=== PATIENT | male | born 1945 | race Caucasian/White ===

== ENCOUNTER 2017-08-01 08:32 | Inpatient (IN) ==
[2017-08-01] MEDS ORDERED: ALBUTEROL/IPRATROPIUM 2.5mg-0.5mg/3ml NEB AEROSOL ONE ×2 (08:38→08:45)
[2017-08-01] MEDS ORDERED: METHYLPREDNISOLONE SOD SUCC 125mg/2ml INJECTION IVP ONE (08:41)
--- NOTE | 2017-08-01 08:45 | Emergency Department Report ---
Asthma HPI - General Stated Complaint: soa Time Seen by Provider: 08/01/17 08:40 Source: patient Mode of arrival: ambulatory Limitations: no limitations - History of Present Illness HPI Narrative: Patient is a 72-year-old male history of multiple myeloma history of asthma. Patient presents the ER for evaluation of dyspnea, wheezing. Patient's been having worsening symptoms of wheezing and shortness of air for the past week, has been using his nebulizer at home increasingly however is currently "not helping". Patient was here for laboratories this morning mild, however decided to present to the ER for further evaluation. On arrival patient tachypneic with audible wheezing. MD complaint: "asthma attack" - Related Data Home Medications Medication Instructions Recorded Confirmed ALPRAZolam [Xanax] 0.5 mg PO BID PRN 08/01/17 08/01/17 Amlodipine [Norvasc] 5 mg PO DAILY 08/01/17 08/01/17 Aspirin [Aspirin EC] 81 mg PO DAILY 08/01/17 08/01/17 Calcium Carbonate/Vitamin D3 1 tab PO DAILY 08/01/17 08/01/17 [Calcium 600 + Vit D Tablet] Dexamethasone Po [Decadron] 40 mg PO DAILY 08/01/17 08/01/17 Doxazosin [Cardura] 4 mg PO BID 08/01/17 08/01/17 FentaNYL PATCH [Duragesic Patch] 1 patch TD Q72H 08/01/17 08/01/17 Gabapentin [Neurontin] 300 mg PO HS 08/01/17 08/01/17 Hydrocodone/APAP 10/325 [[place] 1 tab PO Q4H PRN 08/01/17 08/01/17 10/325] Hydromorphone HCl [Dilaudid] 2 mg PO Q4H PRN 08/01/17 08/01/17 Nystatin Oral Liq. [Mycostatin] 5 ml SSW QID 08/01/17 08/01/17 Oxycodone CR [Oxycontin] 20 mg PO Q12H PRN 08/01/17 08/01/17 Oxycodone HCl 5 - 15 mg PO Q6H PRN 08/01/17 08/01/17 Allergies Allergy/AdvReac Type Severity Reaction Status Date / Time No Known Drug Allergies Allergy Unknown Verified 08/01/17 09:05 Review of Systems Constitutional: Reports: weakness. Denies: fever, chills Eyes: Denies: eye pain, eye discharge, vision change ENT: Denies: ear pain, throat pain, dental pain Cardiovascular: Reports: dyspnea on exertion. Denies: chest pain, palpitations Respiratory: Reports: dyspnea, wheezes. Denies: cough Gastrointestinal: Denies: abdominal pain, nausea, vomiting Genitourinary: Denies: urgency, dysuria, frequency Psychiatric: Denies: anxiety, depression [facility], [facility] Patient Stated Medical History Hypertension Yes Asthma Yes Other GI Yes: DIARRHEA Hx Renal Disease Yes Osteoarthritis Yes - Social History Smoking status: Never smoker Substance use type: does not use Physical Exam - General General appearance: alert - Head Head exam: normocephalic - Eye Eye exam: Present: PERRL, EOMI - ENT ENT exam: Present: normal oropharynx, TM's normal bilaterally - Neck Neck exam: Present: full ROM, trachea midline. Absent: tenderness - Chest Chest inspection: Present: symmetric chest wall rise. Absent: tenderness - Respiratory Respiratory exam: Present: respiratory distress, wheezes, accessory muscle use, prolonged expiratory phase. Absent: normal lung sounds bilaterally - Cardiovascular Cardiovascular exam: Present: regular rate, normal rhythm, normal heart sounds - Abdominal Exam Abdominal exam: Present: soft, normal bowel sounds. Absent: distention, tenderness - Back Exam Back exam: Present: full ROM. Absent: tenderness, CVA tenderness (R), CVA tenderness (L), muscle spasm - Skin Skin exam: Present: warm, dry - Neurological Exam Neurological exam: Present: alert, oriented X3 - Psychiatric Psychiatric exam: Present: normal affect, normal mood Course Vital Signs Temperature 98.5 F 08/01/17 08:35 Pulse Rate 75 08/01/17 08:35 Respiratory Rate 28 H 08/01/17 08:35 Blood Pressure 140/80 H 08/01/17 08:35 Pulse Oximetry 95 08/01/17 08:35 Temperature 98.5 F 08/01/17 08:35 Pulse Rate 86 08/01/17 10:15 Respiratory Rate 16 08/01/17 10:15 Blood Pressure 131/60 08/01/17 10:00 Pulse Oximetry 90 08/01/17 10:15 Dyspnea - MDM Narrative Medical decision making narrative: Patient with improvement but not resolution of symptoms after 125 of Solu- Medrol DuoNeb 2 and Xopenex. Patient continuing to have audible wheezing. Discussed case with Dr. Jurado he will admit observation status. - Differential Diagnosis Differential diagnosis: Likely: Acute exacerbation, Status asthmaticus, Acute asthmatic bronchitis, PE, Pneumonia, COPD exacerbation, Pulmonary edema systolic , Pulmonary edema dystolic, ARDS, Pneumothorax, Foreign body in trachea - Medical Records Attestation: I reviewed the patient's medical records. - Lab Data Attestation: I reviewed the patient's lab results. Result diagrams: 08/01/17 09:03 08/01/17 09:03 Lab Results 08/01/17 08/01/17 Range/Units 09:03 09:03 WBC 8.3 (4.5-11.0) T/MM3 RBC 3.17 L (4.50-5.90) M/MM3 Hgb 9.9 L (13.5-17.5) GM/DL Hct 30.4 L (41-53) % MCV 95.9 (80-100) UM3 MCH 31.2 (26-34) UUG MCHC 32.6 (31-37) GM/DL RDW Std Deviation 46.1 (36.9-50.2) FL Plt Count 156 (130-400) T/MM3 MPV 10.8 (9.4-12.4) UM3 Immature Gran % (Auto) 0.2 (0.0-0.5) % Neut % (Auto) 70.4 H (33-66) % Lymph % (Auto) 16.4 L (23-45) % Ada % (Auto) 11.3 H (0-9.0) % Eos % (Auto) 1.6 (0-4) % Baso % (Auto) 0.1 (0-2) % Neut # (Auto) 5.8 (1.8-7.7) T/MM3 Lymph # (Auto) 1.4 (1-4.8) T/MM3 Ada # (Auto) 0.9 H (0-0.8) T/MM3 Eos # (Auto) 0.1 (0-0.5) T/MM3 Baso # (Auto) 0.0 (0-0.2) T/MM3 Abs Immat Gran (auto) 0.02 (0.00-0.03) T/MM3 Turbidity < 20 (0-20) Sodium 144 (134-144) MEQ/L Potassium 5.4 H (3.6-5) MEQ/L Chloride 109 H (98-107) MEQ/L Carbon Dioxide 21 L (22-30) MEQ/L Anion Gap 14 (5-15) MEQ/L BUN 27.0 H (9-20) MG/DL Creatinine 2.8 H (0.8-1.5) MG/DL GFR Calculation 22 BUN/Creatinine Ratio 10 (6-26) RATIO Glucose 104 (75-110) MG/DL Calculated Osmolality 282 H (261-280) MOSM/KG Calcium 9.1 (8.4-10.2) MG/DL Magnesium 2.0 (1.6-2.3) MG/DL Total Bilirubin 0.30 (0.20-1.30) MG/DL Icterus Index < 2 (0-7) AST 39 (17-59) U/L ALT 44 (21-72) U/L Alkaline Phosphatase 146 H (38-126) U/L Troponin I < 0.012 (0-0.12) ng/ml B-Natriuretic Peptide 187 H (0-175) pg/mL Total Protein 7.2 (6.3-8.2) G/DL Albumin 4.4 (3.5-5.0) G/DL Globulin 2.8 (2.4-3.6) G/DL Albumin/Globulin Ratio 1.6 (1.1-2.2) RATIO Specimen Hemolysis < 15 (0-25) - Radiology Data Attestation: I reviewed the patient's radiology results. No acute cardiopulmonary findings - EKG Data EKG #1 EKG attestation: Yes: I reviewed and interpreted this EKG. EKG shows normal: sinus rhythm Rate [ED.COU.EKR]: normal Rhythm: NSR [place]/QRS: normal Interpretation: no acute changes Disposition Clinical Impression: Asthma with exacerbation Qualifiers: Asthma severity: moderate Asthma persistence: persistent Qualified Code(s): J45.41 - Moderate persistent asthma with (acute) exacerbation Disposition: 02 To [facility] Condition: Stable Time of Disposition: 10:53 - Seen By: physician
[2017-08-01] MEDS: SALINE FLUSH 10ml SYRINGE IVF PRN ×2 (08:47→11:53)
--- NOTE | 2017-08-01 09:24 | XRay Report ---
Indication: cough shortness of air audible wheezing PROCEDURE: XR chest 1V: Encounter: Initial Comparison: December 04, 2013 Findings: Lungs are stable and grossly clear. Right IJ port catheter. No pleural effusion or pneumothorax. The heart size, pulmonary vascularity and mediastinal contours are within normal limits. Impression: Stable chest without acute cardiopulmonary disease. .
[2017-08-01] MEDS ORDERED: HYDROCODONE/APAP 10 MG/325 MG TABLET PO PRN (10:47)
[2017-08-01] MEDS ORDERED: HYDROMORPHONE 2 MG TABLET PO PRN (10:47)
[2017-08-01] MEDS ORDERED: PROMETHAZINE/CODEINE ORAL LIQUID 5ml PO PRN (10:47)
[2017-08-01] MEDS ORDERED: Oxycodone CR 20 MG TABLET PO PRN (10:47)
[2017-08-01] MEDS ORDERED: MENTHOL COUGH DROPS (RICOLA) MM PRN (10:47)
[2017-08-01] MEDS ORDERED: Oxycodone *IR* 5 MG TABLET PO PRN (10:47)
[2017-08-01] MEDS ORDERED: FALL RISK - PHARMACY CONSULT XX ONE (11:10)
--- NOTE | 2017-08-01 11:40 | History & Physical Report ---
History of Present Illness Date: 08/01/17 Chief complaint: difficulty breathing HPI: Nacho Quarles is a 72 year old male with a hx of asthma and multiple myeloma. Per his sister, Mamie, he's been sick with URI symptoms for almost 2 weeks. He was too sick to get his chemo last week, and he's felt too awful to go see a doctor. He's felt chilled but denies fever. His wheezing started about a week ago, and some days he's using his pro-air inhaler much more than he's supposed too. He complains of occasional mild dizziness (though his sister reports that it's much worse -- he has to steady himself on a stable object for a few minutes after standing). He's felt weak as well (again, his sister later informed me that he's barely been able to get out of bed). He denies any falls or syncope. He's been able to keep up with fluids but hasn't had much of an appetite. No urinary changes. No headache or body aches. He saw Dr. Mcghee on , and he recommended ED evaluation. There he was tachypneic but afebrile and maintaining sats on room air. Labs showed a WBC of 8.3, hgb 9.9. K was elevated at 5.4, BUN 27, and creatinine 2.8. 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 CXR was negative for pneumonia or effusions. He was given DuoNeb x2 as well as a Xopenex treatment for his persistent wheezing. Solu-Medrol 125 mg IV was also given. He continued to have symptoms, and the hospitalist department was contacted for admission. Review of Systems All systems PM: 10-point ROS was reviewed, no additional remarkable complaints except - Constitutional Constitutional: Present: anorexia, chills, fatigue, weakness. Absent: fever(s) , headache(s) - EENMT Eyes: Absent: change in vision Nose: Present: obstruction Mouth/Throat: Absent: sore throat, painful swallowing - Cardiovascular Cardiovascular: Absent: chest pain, syncope Vascular: Present: pedal edema (2-3 weeks ago; resolved) - Respiratory Respiratory: Present: cough, wheezing. Absent: dyspnea - Gastrointestinal Gastrointestinal: Absent: abdominal pain, constipation, diarrhea, dyspepsia, nausea, vomiting - Genitourinary Genitourinary: Absent: dysuria - Musculoskeletal Musculoskeletal: Absent: muscle cramps, muscle weakness - Integumentary/Breasts Integumentary: Absent: rash - Neurological Neurological: Present: dizziness, numbness (toes - chronic), weakness. Absent: frequent falls, headache(s) - Psychiatric Psychiatric: Present: anxiety (well-controlled). Absent: depression - Endocrine Endocrine: Absent: palpitations - Hematologic/Lymphatic Hematologic/Lymphatic: Absent: easy bruising - Allergic/Immunologic Allergic/Immunologic: Absent: seasonal rhinorrhea Past Medical History Multiple Myeloma, diagnosed Oct, 2013, on chemotherapy, s/p bone marrow transplant HTN CKD stage IV Asthma Anemia of chronic disease OA Chronic pain, narcotic dependent Surgical History: 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 Cholecystectomy, Dr. Argueta. PowerPort insertion. Right shoulder arthroscopy. Left lower leg ORIF. Right cataract removed Family History Updates: father of lung cancer (smoker); one sister with colon cancer; another sister with cervical cancer, mother age 82, of cancer (unknown) - Social History Smoking status: Never smoker Substance use type: does not use Alcohol intake frequency: does not drink Household members: none (lives alone but sister (Светлана) lives next door) Medications Home Medications Medication Instructions Recorded Confirmed Type ALPRAZolam [Xanax] 0.5 mg PO BID PRN 08/01/17 08/01/17 History Amlodipine [Norvasc] 5 mg PO DAILY 08/01/17 08/01/17 History Aspirin [Aspirin EC] 81 mg PO DAILY 08/01/17 08/01/17 History Calcium Carbonate/Vitamin D3 1 tab PO DAILY 08/01/17 08/01/17 History [Calcium 600 + Vit D Tablet] Dexamethasone Po [Decadron] 40 mg PO DAILY 08/01/17 08/01/17 History Doxazosin [Cardura] 4 mg PO BID 08/01/17 08/01/17 History FentaNYL PATCH [Duragesic Patch] 1 patch TD Q72H 08/01/17 08/01/17 History Gabapentin [Neurontin] 300 mg PO HS 08/01/17 08/01/17 History Hydrocodone/APAP 10/325 [[place] 1 tab PO Q4H PRN 08/01/17 08/01/17 History 10/325] Hydromorphone HCl [Dilaudid] 2 mg PO Q4H PRN 08/01/17 08/01/17 History Nystatin Oral Liq. [Mycostatin] 5 ml SSW QID 08/01/17 08/01/17 History Oxycodone CR [Oxycontin] 20 mg PO Q12H PRN 08/01/17 08/01/17 History Oxycodone HCl 5 - 15 mg PO Q6H PRN 08/01/17 08/01/17 History Allergies Allergy/AdvReac Type Severity Reaction Status Date / Time No Known Drug Allergies Allergy Unknown Verified 08/01/17 09:05 Exam Vital Signs: Temperature 98.1 F 08/01/17 10:47 Pulse Rate 90 08/01/17 10:47 Respiratory Rate 24 08/01/17 10:47 Blood Pressure 150/63 H 08/01/17 10:47 Pulse Oximetry 98 08/01/17 10:47 Height/Weight/BMI: Height 1.68 m Weight 57.2 kg Body Mass Index 20.3 - Constitutional Present: mild distress, well nourished, well developed, thin - Routine HEENT Exam Head: Present: normocephalic Eye: Present: PERRL. Absent: conjunctival icterus, scleral injection ENT: Present: mucous membranes dry, oropharynx clear Comments: left ptosis - Routine Neck Exam Present: supple. Absent: lymphadenopathy - Routine Respiratory Exam Present: wheezes - Routine Cardiovascular Exam Present: RRR, S1, S2 - Routine Abdominal Exam Present: soft, normoactive bowel sounds, non distended, non tender - Routine Extremities Exam Present: no edema, pulses intact, normal capillary refill - Routine Skin Exam Present: intact, dry, warm - Routine Neurological Exam Present: alert, oriented X3, CN II-XII intact (left eye ptosis otherwise no focal deficits), normal speech - Routine Psychiatric Exam Present: normal affect, normal thought process, cooperative Results - Labs CBC & Chem 7: 08/01/17 09:03 08/01/17 09:03 Assessment and Plan (1) Asthma with exacerbation Current visit: Yes Status: Acute Assessment and Plan: IMPRESSION Asthma exacerbation Hyperkalemia (POA) Acute debility, weakness Multiple Myeloma, diagnosed Oct, 2013, on chemotherapy, s/p bone marrow transplant HTN CKD stage IV Asthma Anemia of chronic disease OA Chronic pain, narcotic dependent PLAN Admit, observation status, under the hospitalist service. Asthma exacerbation: DuoNeb QID + Xopenex PRN; Solu-Medrol 125 mg Q6h IV -- dc ADELINA d/t immunocompromised state. Check viral respiratory panel. Ativan PRN anxiety/air hunger. Hyperkalemia: IVF. Debility/weakness: Consult PT/OT. Check orthostatics. CKD stage IV: unsure of baseline creatinine. IVF for hydration, recheck in am. Chronic pain: continue home pain meds. Multiple Myeloma: consult Dr. Mcghee. Advanced directives: Sister Светлана is DPOA; would want an attempt at resuscitation. Not interested in discussing end-of-life per sister, who has noted a significant functional decline over the last year. Gabe Assessment as above with: Influenza type A Plan: will initiate Tamiflu 75mg BID for treatment DVT Prophylaxis: SCD's Resuscitation Status: Full Code - Physician Narrative Physician: Juan José Bernal MD Narrative: Date: 08/01/17 Time: 1137 Have independently interviewed and examined pt. Chart reviewed. Case discussed with ED provider and my FOOD PREPARATION WORKER. Care plan developed with my supervision; agree with above. Presents to ED secondary to increasing weakness, SOA, and decreased appetite. Feeling ill for the last 2 weeks. Progressive more SOA, congested and wheezy. Oral drive decreased - not wanting to ear and only taking small amounts of food , is drinking well and keeping liquids in well. Mild nausea without emesis. Notes stools loose at time. F/C off an on. Decreased urine output. Progressively more tired and weak. Evaluated in ED-RR rapid and patient very congested, but maintaining O2 sats. Lab with slight increase to creatinine to 2.8 and elevated potassium. WBC normal. No infiltrate on CXR. Still very weak and congested despite breathing treatments/steroids given in ED. Placed in OBS for treatment of his asthma exacerbation. Lung: decreased, course and wheezy. Less distress currently than in ED. CV: regular MSE: awake alert appropriate Gen: appears tired and weak. Plan: OBS admission for treatment of his acute asthma exacerbation. Solu-Medrol , Neb treatment, cough suppressants. Respiratory panel positive for Flu-will start Tamiflu 75mg BID for treatment. IVF for hydration and to help decrease potassium. PT/OT for strength. Monitor lab. Will recheck CXR tomorrow to see if pneumonia 'blossoms' after IV hydration. Reassess tomorrow. Hospital Course Summary Disclaimer: The visit summary below is not to be considered part of the above Progress Note. Hospital Course: 08/01/17 Admit, observation status, under the hospitalist service. Asthma exacerbation: DuoNeb QID + Xopenex PRN; Solu-Medrol 125 mg Q6h IV -- dc ADELINA d/t immunocompromised state. Check viral respiratory panel. Ativan PRN anxiety/air hunger. Hyperkalemia: IVF. Debility/weakness: Consult PT/OT. Check orthostatics. CKD stage IV: unsure of baseline creatinine. IVF for hydration, recheck in am. Chronic pain: continue home pain meds. Multiple Myeloma: consult Dr. Mcghee. Advanced directives: Sister Светлана is DPOA; would want an attempt at resuscitation. Not interested in discussing end-of-life per sister, who has noted a significant functional decline over the last year.
[2017-08-01] MEDS: 1/2 NS 1,000 ML IV SCH (11:54)
[2017-08-01] MEDS: ALBUTEROL/IPRATROPIUM 2.5mg-0.5mg/3ml NEB AEROSOL SCH ×3 (13:50→21:28)
[2017-08-01] MEDS: MORPHINE SULFATE 2mg INJ IVP PRN (13:59)
[2017-08-01] MEDS: NYSTATIN 500,000 units/5 ml ORAL LIQUID PO SCH ×3 (14:08→20:12)
[2017-08-01] MEDS: METHYLPREDNISOLONE SOD SUCC 125mg/2ml INJECTION IVP SCH ×2 (14:36→20:13)
[2017-08-01] MEDS: HYDROCODONE/APAP 10 MG/325 MG TABLET PO PRN ×2 (14:36→20:13)
[2017-08-01] MEDS: GABAPENTIN 300 MG CAPSULE PO SCH (20:12)
[2017-08-01] MEDS: DOXAZOSIN 4 MG TABLET PO SCH (20:13)
[2017-08-02] MEDS: 1/2 NS 1,000 ML IV SCH ×2 (01:10→18:29)
[2017-08-02] MEDS: HYDROCODONE/APAP 10 MG/325 MG TABLET PO PRN ×5 (01:21→22:07)
[2017-08-02] MEDS: METHYLPREDNISOLONE SOD SUCC 125mg/2ml INJECTION IVP SCH ×4 (03:30→22:06)
[2017-08-02] MEDS: ALBUTEROL/IPRATROPIUM 2.5mg-0.5mg/3ml NEB AEROSOL SCH ×4 (07:45→20:14)
--- NOTE | 2017-08-02 08:32 | XRay Report ---
INDICATION: F/U - ? infiltrate PROCEDURE: CHEST 2-VIEWS UPRIGHT (PA & LAT) Encounter: Initial COMPARISON: August 01, 2017 Findings: The lungs are stable in appearance without new focal airspace consolidation. There is no pleural effusion or pneumothorax. The heart size, pulmonary vascularity and mediastinal contours are unchanged. Right IJ port. IMPRESSION: Stable appearance of the chest without acute cardiopulmonary disease. .
[2017-08-02] MEDS: AMLODIPINE 5 MG TABLET PO SCH (09:06)
[2017-08-02] MEDS: DOXAZOSIN 4 MG TABLET PO SCH ×2 (09:06→20:46)
[2017-08-02] MEDS: ASPIRIN *EC* 81 MG TABLET PO SCH (09:06)
[2017-08-02] MEDS: NYSTATIN 500,000 units/5 ml ORAL LIQUID PO SCH ×4 (09:06→20:45)
[2017-08-02] MEDS ORDERED: FUROSEMIDE 20 MG/2 ML INJECTION IVP ONE (11:05)
[2017-08-02] MEDS ORDERED: IVIG PRIVIGEN IV ONE (13:00)
[2017-08-02] MEDS ORDERED: RTU SALINE IV ONE (13:00)
--- NOTE | 2017-08-02 13:19 | Pharmacy Consult- Renal Dosing ---
Jarek Wang-Renal Dosing - Laboratory Information 08/02/17 04:25 BUN 35.0 H Creatinine 2.8 H - Consult Information RENAL DOSING: Today's S Cr = 2.8 mg/dl. Calculated Cr Cl = 20 ml/min. I am changing the dose and frequency of the Tamiflu from 75 mg po bid to Tamiflu 30 mg daily for the remaining 3 days of therapy due to the extreme renal failure of the patient per the Pharmacy Renal Monitoring and Adjustment Program. Thanks, Hung Helm, Pharmacist.
--- NOTE | 2017-08-02 15:02 | Progress Note ---
- Date 08/02/17 Subjective: Nacho states that he feels much better and feels well enough to go home, but he is still visibly tachypneic and has increased work of breathing. He quickly becomes winded from the few steps walking to and from the bathroom. He states that he worked really hard with PT today. He has chest pain and right sided back pain -- all chronic. He states that his appetite is at baseline, which is poor. He denies vomiting, diarrhea. He denies dizziness. Objective Vital signs: Temperature 97.9 F 08/02/17 00:00 Pulse Rate 99 08/02/17 08:16 Respiratory Rate 24 08/02/17 11:35 Blood Pressure 135/63 08/02/17 08:16 Pulse Oximetry 97 08/02/17 11:35 Height/Weight/BMI: Height 1.68 m Weight 58.3 kg Body Mass Index 20.3 - Constitutional Present: mild distress, well nourished, well developed, thin - Routine HEENT Exam Head: Present: normocephalic Eye: Present: conjunctival icterus, scleral injection. Absent: PERRL ENT: Present: mucous membranes dry - Routine Respiratory Exam Present: accessory muscle use, dyspnea, wheezes, diminished air movement Comments: conversational dyspnea - Routine Cardiovascular Exam Present: RRR, S1, S2 - Routine Abdominal Exam Present: soft, normoactive bowel sounds, non distended, non tender - Routine Extremities Exam Present: no edema, pulses intact, normal capillary refill - Routine Skin Exam Present: intact, dry, warm Comments: face is flushed - Routine Neurological Exam Present: alert, oriented X3 - Routine Psychiatric Exam Present: normal affect, normal thought process, cooperative Results - Labs CBC & Chem 7: 08/02/17 04:25 08/02/17 04:25 Microbiology Results: Microbiology 08/01/17 14:11 Sputum, Expectorated Gram Stain - Final 08/01/17 14:11 Sputum, Expectorated Sputum Culture - Preliminary Pseudomonas aeruginosa Assessment and Plan (1) Asthma with exacerbation Current visit: Yes Status: Acute Assessment and Plan: IMPRESSION Asthma exacerbation Influenza type A (POA) Hyperkalemia (POA) Acute debility, weakness Thrombocytopenia Immunocompromised secondary to Multiple Myeloma, diagnosed Oct, 2013, on chemotherapy, s/p bone marrow transplant HTN CKD stage IV Asthma Anemia of chronic disease OA Chronic pain, narcotic dependent PLAN Continue Tamiflu for influenza. Continue IV steroids and breathing treatments - still with wheezing, poor air exchange, and conversational dyspnea. Repeat CXR negative for pneumonia. Sputum positive for pseudomonas - d/w Dr. Meyer - w/o fever or infiltrate on CXR it's most likely colonization. Hyperkalemia increased to 5.9 - IV Lasix given. Repeat BMP in am. Dr. Mcghee recommends IVIG. Hgb decreased from 9.9 to 8.5; platelets also down to 121. Recheck in am. PT eval: they recommend IP PT and home with home health. DVT Prophylaxis: SCD's Resuscitation Status: Full Code - Time spent with patient Time with patient PN: 25 minutes - Physician Narrative Physician: Juan José Bernal MD Narrative: Date: 08/02/17 Time: 1458 Have independently interviewed and examined pt. Chart reviewed. Case discussed with CM and my ASSISTANT MANAGER TRAINEE. Care plan developed with my supervision; agree with above. Fair. Still feels SOA and congested. Coughing. Chest wall sore from cough. Oral drive variable. Tired/weak. Did okay with therapy, but hard to be active. Lungs: decreased breath sound, shallow/rapid breathing. Resp distress at resp. CV: regular MSE: awake alert GEN: looks tired and weak. Plan: Continue with supportive respiratory care. Encourage activities to help strength. Continue pain control. Discussed case with Dr Mcghee - recommends IVIG to help him fight off infection. Hospital Course Summary Disclaimer: The visit summary below is not to be considered part of the above Progress Note. Hospital Course: 08/01/17 Admit, observation status, under the hospitalist service. Asthma exacerbation: DuoNeb QID + Xopenex PRN; Solu-Medrol 125 mg Q6h IV -- dc ADELINA d/t immunocompromised state. Check viral respiratory panel. Ativan PRN anxiety/air hunger. Hyperkalemia: IVF. Debility/weakness: Consult PT/OT. Check orthostatics. CKD stage IV: unsure of baseline creatinine. IVF for hydration, recheck in am. Chronic pain: continue home pain meds. Multiple Myeloma: consult Dr. Mcghee. Advanced directives: Sister Светлана is DPOA; would want an attempt at resuscitation. Not interested in discussing end-of-life per sister, who has noted a significant functional decline over the last year. Influenza type A - Tamiflu 75mg BID for treatment 08/02/17 Continue Tamiflu for influenza. Continue IV steroids and breathing treatments - still with wheezing, poor air exchange, and conversational dyspnea. Repeat CXR negative for pneumonia. Sputum positive for pseudomonas - d/w Dr. Meyer - w/o fever or infiltrate on CXR it's most likely colonization. Hyperkalemia increased to 5.9 - IV Lasix given. Repeat BMP in am. Dr. Mcghee recommends IVIG. Hgb decreased from 9.9 to 8.5; platelets also down to 121. Recheck in am. PT eval: they recommend IP PT and home with home health.
[2017-08-02] MEDS: MORPHINE SULFATE 2mg INJ IVP PRN (16:33)
[2017-08-02] MEDS: SALINE FLUSH 10ml SYRINGE IVF PRN ×2 (20:44→22:07)
[2017-08-02] MEDS: GABAPENTIN 300 MG CAPSULE PO SCH (20:45)
[2017-08-02] MEDS: ALPRAZolam 0.5 MG TABLET PO PRN (20:46)
[2017-08-03] MEDS: METHYLPREDNISOLONE SOD SUCC 125mg/2ml INJECTION IVP SCH ×4 (03:29→20:39)
[2017-08-03] MEDS: HYDROCODONE/APAP 10 MG/325 MG TABLET PO PRN ×2 (05:49→17:22)
[2017-08-03] MEDS: ALBUTEROL/IPRATROPIUM 2.5mg-0.5mg/3ml NEB AEROSOL SCH ×4 (07:10→20:15)
[2017-08-03] MEDS: 1/2 NS 1,000 ML IV SCH (08:18)
[2017-08-03] MEDS: NYSTATIN 500,000 units/5 ml ORAL LIQUID PO SCH ×4 (08:20→20:39)
[2017-08-03] MEDS: ASPIRIN *EC* 81 MG TABLET PO SCH (08:21)
[2017-08-03] MEDS: AMLODIPINE 5 MG TABLET PO SCH (08:21)
[2017-08-03] MEDS: DOXAZOSIN 4 MG TABLET PO SCH ×2 (08:21→20:39)
[2017-08-03] MEDS ORDERED: FUROSEMIDE 100 MG/10 ML INJECTION IVP ONE ×2 (11:23→16:30)
[2017-08-03] MEDS ORDERED: SODIUM BICARBONATE 150 MEQ in D5W 1,000 ML IV SCH (11:30)
--- NOTE | 2017-08-03 11:47 | Progress Note ---
- Date 08/03/17 Subjective: The patient was seen this morning in his room. He continues to be tachypneic and uses some assess her muscles to breathe. He continues to feel short of breath and has a cough. He states he's had some chest discomfort that improved yesterday with morphine but has been present since that time. It is not particularly pleuritic. His chest wall was tender to touch yesterday but not today. He states he is urinating frequently. He is eating and drinking okay. His abdomen appears distended but he states it is his normal size. He states he sees Dr. Carl for nephrology. He has not seen him in about a year. The patient has had loose stools which have been normal in color. He denies having any black stools or bloody appearing stools. Objective Vital signs: Temperature 98.5 F 08/03/17 04:51 Pulse Rate 101 H 08/03/17 08:05 Respiratory Rate 22 08/03/17 10:46 Blood Pressure 133/66 08/03/17 08:05 Pulse Oximetry 95 08/03/17 10:46 Height/Weight/BMI: Height 1.68 m Weight 59.8 kg Body Mass Index 20.3 Comments: Afebrile, heart rate 101, respirations 22, O2 sat 95% on room air, blood pressure 133/66 Weight was 57.2 on admission and is 59.8 today. Relative I&O is 5.7 L / 2.6 L GEN-alert, oriented, appears tachypneic HEENT-oropharynx is mildly dry, sclera are anicteric NECK-supple CV-borderline tachycardic rate with irregular rhythm CHEST-wheezing throughout lung ansari ABD-soft, moderate distention, positive tympany, positive bowel sounds, nontender -no [place] EXT-no edema NEURO-no focal deficits SKIN-warm and dry Results - Labs CBC & Chem 7: 08/03/17 04:37 08/03/17 04:37 Labs: Lactate now is 3.6, troponin is pending. EKG done today reveals sinus rhythm. Microbiology Results: Microbiology 08/01/17 14:11 Sputum, Expectorated Gram Stain - Final 08/01/17 14:11 Sputum, Expectorated Sputum Culture - Preliminary Pseudomonas aeruginosa Normal Respiratory Elizabeth Assessment and Plan (1) Asthma with exacerbation Current visit: Yes Status: Acute Assessment and Plan: IMPRESSION Asthma exacerbation Influenza type A (POA) Acute kidney injury on chronic kidney disease Hyperkalemia (POA) Chest pain-with normal initial troponin and EKG Acute debility, weakness Thrombocytopenia Immunocompromised secondary to Multiple Myeloma, diagnosed Oct, 2013, on chemotherapy, s/p bone marrow transplant HTN CKD stage IV Asthma Anemia of chronic disease -hemoglobin has dropped from 9.9 on admission to 8.0 on 08/03/2017 OA Chronic pain, narcotic dependent Elevated lactate of 3.6-possible severe sepsis. PLAN Continue Tamiflu for influenza. Dose decreased due to renal function. Continue IV steroids and breathing treatments - still with wheezing, poor air exchange, and conversational dyspnea. Sputum positive for pseudomonas Consulted Dr. Kerr today regarding asthma exacerbation and positive sputum with Pseudomonas. May need antibiotics. Consider CT chest without contrast if patient able to lie flat. Check EKG and troponin regarding chest pain. (EKG showed normal sinus rhythm) Discussed the patient's chronic kidney disease with worsening creatinine and elevated calcium with Dr. Carl and he recommended D5W with 3 A of bicarbonate to run at 125 an hour and Lasix 1. We'll recheck basic metabolic profile later today. If potassium is not improving he will need transfer to [place] for possible dialysis. He suspects his increased creatinine may be due to ATN caused by his recent influenza illness. We'll check Hemoccults and monitor hemoglobin regarding drop in hemoglobin and increase in BUN. Will start Protonix IV. Change to inpatient status secondary to acute kidney injury with hyperkalemia Greater than 45 minutes of critical care time spent seeing and evaluating the patient in determining care plan.. Lactate was obtained and was 3.6. Will give a bolus IV fluid if chest x-ray shows no pulmonary edema. No pulmonary edema on my read. Give 1 L normal saline bolus over 2 hours. Will start cefepime, Vanco, Levaquin. Obtain blood cultures 2. 400 of urine was noted on post void bladder scan. Renal ultrasound is pending. DVT Prophylaxis: SCD's GI Prophylaxis: Protonix Resuscitation Status: Full Code - Time spent with patient Time with patient PN: 50 minutes - Physician Narrative Physician: Jammie Castillo MD Narrative: Date: 08/03/17 Time: 1133 Hospital Course Summary Disclaimer: The visit summary below is not to be considered part of the above Progress Note. Hospital Course: 08/01/17 Admit, observation status, under the hospitalist service. Asthma exacerbation: DuoNeb QID + Xopenex PRN; Solu-Medrol 125 mg Q6h IV -- dc ADELINA d/t immunocompromised state. Check viral respiratory panel. Ativan PRN anxiety/air hunger. Hyperkalemia: IVF. Debility/weakness: Consult PT/OT. Check orthostatics. CKD stage IV: unsure of baseline creatinine. IVF for hydration, recheck in am. Chronic pain: continue home pain meds. Multiple Myeloma: consult Dr. Mcghee. Advanced directives: Sister Светлана is DPOA; would want an attempt at resuscitation. Not interested in discussing end-of-life per sister, who has noted a significant functional decline over the last year. Influenza type A - Tamiflu 75mg BID for treatment 08/02/17 Continue Tamiflu for influenza. Continue IV steroids and breathing treatments - still with wheezing, poor air exchange, and conversational dyspnea. Repeat CXR negative for pneumonia. Sputum positive for pseudomonas - d/w Dr. Meyer - w/o fever or infiltrate on CXR it's most likely colonization. Hyperkalemia increased to 5.9 - IV Lasix given. Repeat BMP in am. Dr. Mcghee recommends IVIG. Hgb decreased from 9.9 to 8.5; platelets also down to 121. Recheck in am. PT eval: they recommend IP PT and home with home health. 08/03/2017 PLAN Continue Tamiflu for influenza. Dose decreased due to renal function. Continue IV steroids and breathing treatments - still with wheezing, poor air exchange, and conversational dyspnea. Sputum positive for pseudomonas Consulted Dr. Kerr today regarding asthma exacerbation and positive sputum with Pseudomonas. May need antibiotics. Consider CT chest without contrast if patient able to lie flat. Check EKG and troponin regarding chest pain. (EKG showed normal sinus rhythm) Discussed the patient's chronic kidney disease with worsening creatinine and elevated calcium with Dr. Carl and he recommended D5W with 3 A of bicarbonate to run at 125 an hour and Lasix 1. We'll recheck basic metabolic profile later today. If potassium is not improving he will need transfer to [place] for possible dialysis. He suspects his increased creatinine may be due to ATN caused by his recent influenza illness. We'll check Hemoccults and monitor hemoglobin regarding drop in hemoglobin and increase in BUN. Will start Protonix IV. Change to inpatient status secondary to acute kidney injury with hyperkalemia Greater than 45 minutes of critical care time spent seeing and evaluating the patient in determining care plan.. Lactate was obtained and was 3.6. Will give a bolus IV fluid if chest x-ray shows no pulmonary edema. No pulmonary edema on my read. Give 1 L normal saline bolus over 2 hours. Will start cefepime, Vanco, Levaquin. Obtain blood cultures 2. 400 of urine was noted on post void bladder scan. Renal ultrasound is pending.
[2017-08-03] MEDS ORDERED: VANCOMYCIN - PHARMACY CONSULT MC ONE (12:26)
[2017-08-03] MEDS ORDERED: RENAL DOSING - PHARMACY CONSULT MC ONE (12:27)
[2017-08-03] MEDS ORDERED: LEVOFLOXACIN PB 750 MG/150 ML BAG IV SCH (12:30)
[2017-08-03] MEDS ORDERED: CEFEPIME 2 GM in NS 100 ML IV SCH (12:30)
[2017-08-03] MEDS ORDERED: NS 1,000 ML IV ONE (12:33)
[2017-08-03] MEDS ORDERED: LEVOFLOXACIN PB 500 MG/100 ML BAG IV ONE (13:00)
[2017-08-03] MEDS: PANTOPRAZOLE 40 MG INJECTION IVP SCH ×2 (13:14→20:40)
--- NOTE | 2017-08-03 13:26 | Pharmacy Consult- Renal Dosing ---
[facility] Consul-Renal Dosing - Consult Information RENAL DOSING: Today's S Cr = 0.9 mg/dl. Calculated Cr Cl = 19.66 ml/min. 1) Will change the Cefepime 2 g iv every 24 hours to Cefepime 1 g iv every 12 hours. 2) will change the Leovfloxacin 750 mg iv every7 q72h to Levofloxacin 500 mg iv today, then 250 mg iv daily thereafter. The pharmacy will continue to review the renal function and adjust the medications accordingly. Thanks for the Renal Consult, Hnug Helm, Pharmacist.
--- NOTE | 2017-08-03 13:32 | XRay Report ---
Indication: rule out pneumonia and pulm edema PROCEDURE: XR chest 1V: Encounter: Initial Comparison: August 02, 2017 Findings: Right IJ port catheter. Lungs are stable and grossly clear. No pleural effusion or pneumothorax. Heart size and mediastinal contours are stable. Pulmonary vascularity appears normal. Impression: No focal pneumonia or congestive failure. .
[2017-08-03] MEDS: MORPHINE SULFATE 2mg INJ IVP PRN ×2 (13:37→23:27)
--- NOTE | 2017-08-03 14:07 | Ultrasound Report ---
Indication: tashi on ckd PROCEDURE: US renal BI: Encounter: Initial Comparison: None Technique: Grayscale and color Doppler sonographic imaging of both kidneys was performed. FINDINGS: Both kidneys are present with normal cortical thickness and slightly increased echogenicity, probably due to medical renal disease. No evidence for collecting system dilatation, contour deforming mass, nephrolithiasis, or abnormal perinephric fluid collection. The right kidney measures 9.6 cm in length, and the left kidney measures 8.7 cm in length. IMPRESSION: No hydronephrosis. .
--- NOTE | 2017-08-03 14:35 | Pharmacy Consult-Antibiotics ---
Pharmacy Consult-Vancomycin - Laboratory Information WBC 13.3 T/MM3 (4.5-11.0) H D 08/03/17 04:37 BUN 41.0 MG/DL (9-20) H 08/03/17 04:37 Creatinine 2.9 MG/DL (0.8-1.5) H 08/03/17 04:37 - Consult Information VANCOMYCIN CONSULT: 72 yr old male patient 5'6" 60 kg Dx: Influenza with acute and chronic kidney disease and hx of multiple myeloma Current Renal Fx: SCr = 2.9 mg/dl. CrCl = 19 ml/min Will give Vancomycin 1000 mg IV q36hrs. Will continue to monitor and adjust regimen to maintain therapeutic levels. Thank you. Luanne Rudolph,PharmD
[2017-08-03] MEDS: CEFEPIME 1 GM in NS 50 ML IV SCH (15:11)
--- NOTE | 2017-08-03 15:14 | Pulmonology Consult Note ---
History of Present Illness Consult date: 08/03/17 Requesting physician: Jammie Castillo Reason for consult: dyspnea Chief complaint: influenza History of present illness: HPI: Nacho Quarles is a 72 year old male with history of asthma. He has not been hospitalized with asthma in the past. He takes PRN ProAir at home. He never smoked cigarettes. He does not take any additional asthma medications. He does not have O2 at home. He also has history of multiple myeloma. Per his sister, Mamie, he's been sick with URI symptoms for almost 2 weeks. He was too sick to get his chemo last week, and he's felt too awful to go see a doctor. He's felt chilled but denies fever. His wheezing started about a week ago, and some days he's using his pro-air inhaler much more than he's supposed too. He complains of occasional mild dizziness (though his sister reports that it's much worse -- he has to steady himself on a stable object for a few minutes after standing). He' s felt weak as well (again, his sister later informed me that he's barely been able to get out of bed). He denies any falls or syncope. He's been able to keep up with fluids but hasn't had much of an appetite. No urinary changes. No headache or body aches. He saw Dr. Mcghee on 08/01/17, and he recommended ED evaluation. There he was tachypneic but afebrile and maintaining sats on room air. Labs showed a WBC of 8.3, hgb 9.9. K was elevated at 5.4, BUN 27, and creatinine 2.8. 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 CXR was negative for pneumonia or effusions. He was given DuoNeb x2 as well as a Xopenex treatment for his persistent wheezing. Solu-Medrol 125 mg IV was also given. He continued to have symptoms, and the hospitalist department was contacted for admission. Review of Systems All systems PM: 10-point ROS was reviewed, no additional remarkable complaints except - Constitutional Constitutional: Present: anorexia, chills, fatigue, weakness. Absent: fever(s) , headache(s) - EENMT Eyes: Absent: change in vision Nose: Present: obstruction Mouth/Throat: Absent: sore throat, painful swallowing - Cardiovascular Cardiovascular: Absent: chest pain, syncope Vascular: Present: pedal edema (2-3 weeks ago; resolved) - Respiratory Respiratory: Present: cough, wheezing. Absent: dyspnea - Gastrointestinal Gastrointestinal: Absent: abdominal pain, constipation, diarrhea, dyspepsia, nausea, vomiting - Genitourinary Genitourinary: Absent: dysuria - Musculoskeletal Musculoskeletal: Absent: muscle cramps, muscle weakness - Integumentary/Breasts Integumentary: Absent: rash - Neurological Neurological: Present: dizziness, numbness (toes - chronic), weakness. Absent: frequent falls, headache(s) - Psychiatric Psychiatric: Present: anxiety (well-controlled). Absent: depression - Endocrine Endocrine: Absent: palpitations - Hematologic/Lymphatic Hematologic/Lymphatic: Absent: easy bruising - Allergic/Immunologic Allergic/Immunologic: Absent: seasonal rhinorrhea Past Medical History Multiple Myeloma, diagnosed Oct, 2013, on chemotherapy, s/p bone marrow transplant HTN CKD stage IV Asthma Anemia of chronic disease OA Chronic pain, narcotic dependent Surgical History: 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 Cholecystectomy, Dr. Argueta. PowerPort insertion. Right shoulder arthroscopy. Left lower leg ORIF. Right cataract removed Family History Updates: father of lung cancer (smoker); one sister with colon cancer; another sister with cervical cancer, mother age 82, of cancer (unknown) - Social History Smoking status: Never smoker Substance use type: does not use Alcohol intake frequency: does not drink Household members: none (lives alone but sister (Светлана) lives next door) Review of Systems All systems: reviewed and no additional remarkable complaints except as stated Review of systems: cough. no sputum. wheeze and dyspnea. PFSH Surgical History: 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 Cholecystectomy, Dr. Argueta. PowerPort insertion. Right shoulder arthroscopy. Left lower leg ORIF. Right cataract removed - Social History Smoking status: Never smoker Medications Home Medications Medication Instructions Recorded Confirmed Type ALPRAZolam [Xanax] 0.5 mg PO BID PRN 08/01/17 08/01/17 History Amlodipine [Norvasc] 5 mg PO DAILY 08/01/17 08/01/17 History Aspirin [Aspirin EC] 81 mg PO DAILY 08/01/17 08/01/17 History Calcium Carbonate/Vitamin D3 1 tab PO DAILY 08/01/17 08/01/17 History [Calcium 600 + Vit D Tablet] Dexamethasone Po [Decadron] 40 mg PO DAILY 08/01/17 08/01/17 History Doxazosin [Cardura] 4 mg PO BID 08/01/17 08/01/17 History FentaNYL PATCH [Duragesic Patch] 1 patch TD Q72H 08/01/17 08/01/17 History Gabapentin [Neurontin] 300 mg PO HS 08/01/17 08/01/17 History Hydrocodone/APAP 10/325 [[place] 1 tab PO Q4H PRN 08/01/17 08/01/17 History 10/325] Hydromorphone HCl [Dilaudid] 2 mg PO Q4H PRN 08/01/17 08/01/17 History Nystatin Oral Liq. [Mycostatin] 5 ml SSW QID 08/01/17 08/01/17 History Oxycodone CR [Oxycontin] 20 mg PO Q12H PRN 08/01/17 08/01/17 History Oxycodone HCl 5 - 15 mg PO Q6H PRN 08/01/17 08/01/17 History Allergies Allergy/AdvReac Type Severity Reaction Status Date / Time No Known Drug Allergies Allergy Unknown Verified 08/01/17 09:05 Exam Vital signs: Temperature 95.5 F L 08/03/17 14:57 Pulse Rate 71 08/03/17 14:57 Respiratory Rate 20 08/03/17 15:02 Blood Pressure 92/60 08/03/17 14:57 Pulse Oximetry 95 08/03/17 15:02 - Constitutional mild distress, well developed, cooperative - Routine HEENT Exam Head: Present: normocephalic, atraumatic Eye: Present: EOMI, PERRL. Absent: conjunctival icterus ENT: Present: mucous membranes moist - Routine Neck Exam Present: supple, full ROM - Routine Respiratory Exam Present: decreased breath sounds, prolonged expiratory phase, wheezes. Absent: accessory muscle use - Routine Cardiovascular Exam Present: RRR. Absent: murmur - Routine Abdominal Exam Present: soft. Absent: guarding - Routine Extremities Exam Absent: cyanosis, clubbing - Routine Skin Exam Absent: jaundice, rash - Routine Neurological Exam Present: alert. Absent: motor deficit Results - Laboratory Findings CBC and BMP: 08/03/17 04:37 08/03/17 04:37 - Diagnostic Findings Chest x-ray: report reviewed, image reviewed Assessment and Plan (1) Lactic acidosis Status: Acute Assessment and plan: possibly related to sepsis syndrome with acute renal injury. recheck lactate, ABG likely a contributor to shortness of breath Current Visit: Yes (2) Acute kidney injury Status: Acute Assessment and plan: IVF rehydration and follow. avoid nephrotoxins. may benefit from renal consult Current Visit: Yes (3) Influenza A Status: Acute Assessment and plan: on oseltamivir supportive care Current Visit: Yes (4) Asthma with exacerbation Status: Acute Assessment and plan: agree with methylpred, levalbuterol. add ipratropium neb as well. Current Visit: Yes - Time Spent With Patient Total time spent is greater than 50% in coordination of care (as documented) at patient's floor/unit and/or counseling patient: 25 - 35 minutes
[2017-08-03] MEDS: VANCOMYCIN 1,000 MG in NS 250 ML IV SCH (17:22)
[2017-08-03] MEDS ORDERED: SODIUM BICARBONATE 150 MEQ in D5W 850 ML IV SCH (20:15)
[2017-08-03] MEDS: GABAPENTIN 300 MG CAPSULE PO SCH (20:38)
[2017-08-04] MEDS: METHYLPREDNISOLONE SOD SUCC 125mg/2ml INJECTION IVP SCH ×4 (02:18→22:43)
[2017-08-04] MEDS: CEFEPIME 1 GM in NS 50 ML IV SCH ×2 (02:19→18:00)
[2017-08-04] MEDS: ALBUTEROL/IPRATROPIUM 2.5mg-0.5mg/3ml NEB AEROSOL SCH ×5 (05:08→23:41)
[2017-08-04] MEDS: SODIUM BICARBONATE 150 MEQ in D5W 1,000 ML IV SCH (06:29)
[2017-08-04] MEDS ORDERED: NS FLUSH BAG 500ml IV PRN ×2 (08:05→10:48)
[2017-08-04] MEDS ORDERED: DEXTROSE 50% SYRINGE 50ml (1 AMP) IVP PRN (08:10)
[2017-08-04] MEDS ORDERED: GLUCOSE ORAL GEL 40% 37.5gm PO PRN (08:10)
--- NOTE | 2017-08-04 08:11 | CT Scan Report ---
Indication: dyspnea, possible pneumonia PROCEDURE: CT chest wo con: Encounter: Initial Comparison: Chest x-ray from same date Technique: Axial CT images were performed through the chest without intravenous contrast. Coronal and sagittal two-dimensional reformats. Automated Exposure Control and Iterative Reconstruction dose reducing techniques were utilized. Findings: There is patchy somewhat nodular airspace consolidation in the right lower lobe with tree-in-bud type nodular foci. There is also some peribronchial vascular nodular opacity and inflammatory change in the left lower lobe. Inflammatory appearing groundglass nodule in the left upper lobe on image #32 measuring 1 cm in size. Additional tree-in-bud type nodular foci in the peripheral right upper lobe with groundglass foci. No pleural effusion or pneumothorax. No axillary or mediastinal adenopathy. Heart size is normal. Trace pericardial effusion. The upper abdomen shows no acute findings. Impression: Scattered parenchymal infiltrates most consistent with pneumonia. There is a preliminary report by [facility]. .
[2017-08-04] MEDS: SALINE FLUSH 10ml SYRINGE IVF PRN ×4 (08:13→22:42)
[2017-08-04] MEDS: MORPHINE SULFATE 2mg INJ IVP PRN ×4 (08:13→19:42)
--- NOTE | 2017-08-04 08:15 | Progress Note ---
- Date 08/04/17 Subjective: The patient was seen this morning in his room. He states he is breathing better today than yesterday. He does complain of chest pain that has been continuous since admission but is worse currently. He rates it 7 on a scale of 1-10. There is no radiation of pain. His mouth feels dry. He is urinating frequently. He did not sleep well last night because of interruptions for vitals, etc. He denies any pain elsewhere. Objective Vital signs: Temperature 97.5 F 08/04/17 06:33 Pulse Rate 112 H 08/04/17 06:35 Respiratory Rate 28 H 08/04/17 06:35 Blood Pressure 150/71 H 08/04/17 06:35 Pulse Oximetry 96 08/04/17 06:35 Comments: Current heart rate on telemetry is 97. Review of telemetry shows sinus rhythm and sinus tachycardia. No arrhythmias. I&O yesterday 3992/3200 GEN-alert, oriented, breathing a little more comfortably HEENT-sclera anicteric, oropharynx is dry NECK-supple CV-borderline tachycardia with a regular rhythm CHEST-expiratory wheezes throughout ABD-soft, nontender with positive bowel sounds -no [place] EXT-no edema NEURO-no focal deficits SKIN-warm and dry, no rashes Results - Labs CBC & Chem 7: 08/04/17 04:38 08/04/17 04:38 Labs: Hemoglobin is 7.9 down from 9.9 on admission. Hemoccult stool yesterday is negative. Iron panel, B-12, folate are pending Phosphorus and calcium are normal Lactate this morning is 1.6 down from a high of 3.6 yesterday morning Microbiology Results: Microbiology 08/03/17 13:42 Sputum, Expectorated Gram Stain - Final 08/03/17 13:42 Sputum, Expectorated Sputum Culture - Final 08/03/17 13:11 Port/Picc Blood Culture - Preliminary Culture Initiated - Results Pending 08/03/17 13:16 Port/Picc Blood Culture - Preliminary Culture Initiated - Results Pending Sputum from 08/01/2017 shows Pseudomonas with moderate growth. Sensitive to cefepime, gentamicin, Levaquin, meropenem, tobramycin, Zosyn - ABG Interpretation ABG results: 08/03/17 08/03/17 15:58 15:58 ABG pH Cancelled 7.393 ABG pCO2 Cancelled 31 L ABG pO2 Cancelled 85.6 ABG HCO3 Cancelled 19.1 L ABG Total CO2 Cancelled 20.0 L ABG O2 Saturation Cancelled 96.6 ABG Base Excess Cancelled -5.3 L - Impressions Date of Exam: 08/03/17 Ordering Provider: Jammie Castillo MD Type of Exam(s): US renal BI Reason for Exam(s): tashi on ckd Indication: tashi on ckd PROCEDURE: US renal BI: Encounter: Initial Comparison: None Technique: Grayscale and color Doppler sonographic imaging of both kidneys was performed. FINDINGS: Both kidneys are present with normal cortical thickness and slightly increased echogenicity, probably due to medical renal disease. No evidence for collecting system dilatation, contour deforming mass, nephrolithiasis, or abnormal perinephric fluid collection. The right kidney measures 9.6 cm in length, and the left kidney measures 8.7 cm in length. IMPRESSION: No hydronephrosis. Date of Exam: 08/03/17 Ordering Provider: Jammie Castillo MD Type of Exam(s): CT chest wo con Reason for Exam(s): dyspnea, possible pneumonia Indication: dyspnea, possible pneumonia PROCEDURE: CT chest wo con: Encounter: Initial Comparison: Chest x-ray from same date Technique: Axial CT images were performed through the chest without intravenous contrast. Coronal and sagittal two-dimensional reformats. Automated Exposure Control and Iterative Reconstruction dose reducing techniques were utilized. Findings: There is patchy somewhat nodular airspace consolidation in the right lower lobe with tree-in-bud type nodular foci. There is also some peribronchial vascular nodular opacity and inflammatory change in the left lower lobe. Inflammatory appearing groundglass nodule in the left upper lobe on image #32 measuring 1 cm in size. Additional tree-in-bud type nodular foci in the peripheral right upper lobe with groundglass foci. No pleural effusion or pneumothorax. No axillary or mediastinal adenopathy. Heart size is normal. Trace pericardial effusion. The upper abdomen shows no acute findings. Impression: Scattered parenchymal infiltrates most consistent with pneumonia. Assessment and Plan (1) Asthma with exacerbation Current visit: Yes Status: Acute Assessment and Plan: IMPRESSION Asthma exacerbation Influenza type A (POA) Severe sepsis Pneumonia (diagnosed on CT) with Pseudomonas aeruginosa in sputum Acute kidney injury on chronic kidney disease -slightly improved. (Renal ultrasound without hydronephrosis) Hyperkalemia (POA)-resolved Chest pain-with normal initial troponin and EKG Anemia of chronic disease with slow decrease in hemoglobin, was 9.9 on admission and 7.9 on 08/04/2017 . Hemoccult stool negative Acute debility, weakness Thrombocytopenia Immunocompromised secondary to Multiple Myeloma, diagnosed Oct, 2013, on chemotherapy, s/p bone marrow transplant HTN CKD stage IV OA Chronic pain, narcotic dependent PLAN Continue Tamiflu for influenza. Dose decreased due to renal function. Continue IV steroids and breathing treatments - still with wheezing, poor air exchange, dyspnea slightly improved today. Started on vancomycin, cefepime, Levaquin yesterday for severe sepsis/ pneumonia. Blood cultures are pending Can likely adjust antibiotics for treatment of Pseudomonas pneumonia. ReCheck EKG (this morning's EKG shows normal sinus rhythm) and serial troponin now regarding chest pain. (EKG yesterday showed normal sinus rhythm with normal troponins) Chest x-ray today We'll discuss if transfusion needed with the patient's oncologist Dr. Mcghee Discussed with motorcycle fabricator, Dr. Carl and he recommends discontinuation of D5 with bicarbonate and initiating normal saline. DVT Prophylaxis: SCD's GI Prophylaxis: Protonix Resuscitation Status: Full Code - Time spent with patient Time with patient PN: 35 minutes - Physician Narrative Physician: Jammie Castillo MD Narrative: Date: 08/04/17 Time: 0811 Hospital Course Summary Disclaimer: The visit summary below is not to be considered part of the above Progress Note. Hospital Course: 08/01/17 Admit, observation status, under the hospitalist service. Asthma exacerbation: DuoNeb QID + Xopenex PRN; Solu-Medrol 125 mg Q6h IV -- dc ADELINA d/t immunocompromised state. Check viral respiratory panel. Ativan PRN anxiety/air hunger. Hyperkalemia: IVF. Debility/weakness: Consult PT/OT. Check orthostatics. CKD stage IV: unsure of baseline creatinine. IVF for hydration, recheck in am. Chronic pain: continue home pain meds. Multiple Myeloma: consult Dr. Mcghee. Advanced directives: Sister Светлана is DPOA; would want an attempt at resuscitation. Not interested in discussing end-of-life per sister, who has noted a significant functional decline over the last year. Influenza type A - Tamiflu 75mg BID for treatment 08/02/17 Continue Tamiflu for influenza. Continue IV steroids and breathing treatments - still with wheezing, poor air exchange, and conversational dyspnea. Repeat CXR negative for pneumonia. Sputum positive for pseudomonas - d/w Dr. Meyer - w/o fever or infiltrate on CXR it's most likely colonization. Hyperkalemia increased to 5.9 - IV Lasix given. Repeat BMP in am. Dr. Mcghee recommends IVIG. Hgb decreased from 9.9 to 8.5; platelets also down to 121. Recheck in am. PT eval: they recommend IP PT and home with home health. 08/03/2017 PLAN Continue Tamiflu for influenza. Dose decreased due to renal function. Continue IV steroids and breathing treatments - still with wheezing, poor air exchange, and conversational dyspnea. Sputum positive for pseudomonas Consulted Dr. Kerr today regarding asthma exacerbation and positive sputum with Pseudomonas. May need antibiotics. Consider CT chest without contrast if patient able to lie flat. Check EKG and troponin regarding chest pain. (EKG showed normal sinus rhythm) Discussed the patient's chronic kidney disease with worsening creatinine and elevated calcium with Dr. Carl and he recommended D5W with 3 A of bicarbonate to run at 125 an hour and Lasix 1. We'll recheck basic metabolic profile later today. If potassium is not improving he will need transfer to [place] for possible dialysis. He suspects his increased creatinine may be due to ATN caused by his recent influenza illness. We'll check Hemoccults and monitor hemoglobin regarding drop in hemoglobin and increase in BUN. Will start Protonix IV. Change to inpatient status secondary to acute kidney injury with hyperkalemia Greater than 45 minutes of critical care time spent seeing and evaluating the patient in determining care plan.. Lactate was obtained and was 3.6. Will give a bolus IV fluid if chest x-ray shows no pulmonary edema. No pulmonary edema on my read. Give 1 L normal saline bolus over 2 hours. Will start cefepime, Vanco, Levaquin. Obtain blood cultures 2. 400 of urine was noted on post void bladder scan. Renal ultrasound is pending.
--- NOTE | 2017-08-04 08:35 | XRay Report ---
Indication: hypoxia and dysnea PROCEDURE: XR chest 1V: Encounter: Initial Comparison: Chest CT dated August 03, 2017 Findings: Airspace consolidation is again partially obscured by overlying monitoring leads and is better visualized on the recent chest CT. There are small nodular foci of opacity seen in the right upper, middle and lower lobes. This is not grossly changed in the interval. No pleural effusion or pneumothorax. Heart size and mediastinal contours are stable. Pulmonary vascularity is normal Impression: Stable subtle nodular infiltrates. .
[2017-08-04] MEDS: PANTOPRAZOLE 40 MG INJECTION IVP SCH ×2 (10:44→22:43)
[2017-08-04] MEDS ORDERED: DiphenhydrAMINE 25 MG CAPSULE PO ONE (10:48)
[2017-08-04] MEDS ORDERED: ACETAMINOPHEN 325 MG TABLET PO ONE (10:49)
[2017-08-04] MEDS: INSULIN ASPART 100unit/ml INJECTION SQ PRN ×2 (11:04→22:44)
[2017-08-04] MEDS: ASPIRIN *EC* 81 MG TABLET PO SCH (11:07)
[2017-08-04] MEDS: DOXAZOSIN 4 MG TABLET PO SCH ×2 (11:07→22:42)
[2017-08-04] MEDS: NYSTATIN 500,000 units/5 ml ORAL LIQUID PO SCH ×4 (11:08→22:43)
[2017-08-04] MEDS: AMLODIPINE 5 MG TABLET PO SCH (11:15)
--- NOTE | 2017-08-04 11:39 | Pulmonology Progress Note ---
Subjective Principal diagnosis: SOB Interval history: Pt in bed, states his SOB is a little better today. Still with cough and sputum. On O2 at 2L per NC Exam Vital signs: Temperature 97.1 F 08/04/17 11:17 Pulse Rate 108 H 08/04/17 11:17 Respiratory Rate 28 H 08/04/17 11:17 Blood Pressure 155/73 H 08/04/17 11:17 Pulse Oximetry 95 08/04/17 11:17 Inpatient Medications: Generic Name Dose Route Start Last Admin Trade Name Freq PRN Reason Stop Dose Admin Hydrocodone Bitart/Acetaminophen 1 - 2 tab 08/01/17 14:30 08/03/17 17:22 [place] 10/325 PO 1 tab Q4H PRN Administration Pain Albuterol/Ipratropium 3 ml 08/01/17 11:00 08/04/17 05:08 Duoneb AEROSOL 3 ml RTQID RADHA Administration Alprazolam 0.5 mg 08/01/17 10:47 08/02/17 20:46 Xanax PO 0.5 mg BID PRN Administration Anxiety Amlodipine Besylate 5 mg 08/02/17 09:00 08/04/17 11:15 Norvasc PO 5 mg DAILY RADHA Administration Aspirin 81 mg 08/02/17 09:00 08/04/17 11:07 Ecotrin PO 81 mg DAILY RADHA Administration Dextrose 20 ml 08/04/17 08:10 D50%W IVP PRN PRN Hypoglycemia Doxazosin Mesylate 4 mg 08/01/17 21:00 08/04/17 11:07 Cardura PO 4 mg BID RADHA Administration Fentanyl 25 mcg 08/04/17 10:47 08/04/17 11:06 Duragesic Patch TD 25 mcg Q72H RADHA Administration Fentanyl Citrate 1 removal 08/04/17 11:00 08/04/17 11:12 Dur[place] Patch Removal TD 1 removal Q3D RADHA Administration Gabapentin 300 mg 08/01/17 21:00 08/03/17 20:38 Neurontin PO 300 mg HS RADHA Administration Glucose 37.5 gm 08/04/17 08:10 Glutose 15 PO PRN PRN Hypoglycemia Hydromorphone HCl 2 mg 08/01/17 10:47 Dilaudid PO Q4H PRN Pain Cefepime HCl 1 gm/ Sodium 50 mls @ 200 mls/hr 08/03/17 14:00 03/02/18 02:49 Chloride IV Infused Q12H [facility] Infusion Vancomycin HCl 1,000 mg/ 250 mls @ 250 mls/hr 08/03/17 18:00 08/03/17 18:25 Sodium Chloride IV Infused Q36H RADHA Infusion Sodium Chloride 1,000 mls @ 100 mls/hr 08/04/17 08:30 Normal Saline IV .Q10H RADHA Insulin Aspart 1 - 5 unit 08/04/17 08:10 08/04/17 11:04 Novolog SQ 3 unit SS PRN Administration Hyperglycemia Protocol Levalbuterol HCl 1.25 mg 08/01/17 10:47 08/03/17 08:53 Xopenex 1.25mg/3ml AEROSOL 1.25 mg Q4HR PRN Administration Shortness of air Lorazepam 0.5 mg 08/01/17 10:47 Ativan Inj IVP Q4H PRN Anxiety/Air hunger/Agitation Menthol 1 lozenge 08/01/17 10:47 Ricola Sf MM PRN PRN Cough Methylprednisolone Sodium Succinate 125 mg 08/01/17 15:00 08/04/17 10:48 Solu-Medrol IVP 125 mg Q6HR RADHA Administration Morphine Sulfate 2 mg 08/01/17 10:47 08/04/17 11:04 Morphine Sulfate Inj IVP 2 mg Q2HR PRN Administration Pain /Air hunger Nystatin 5 ml 08/01/17 13:00 08/04/17 11:08 Mycostatin PO 5 ml QID RADHA Administration Oseltamivir Phosphate 30 mg 08/03/17 09:00 08/04/17 11:08 Tamiflu PO 08/05/17 09:01 30 mg DAILY RADHA Administration Oxycodone HCl 20 mg 08/01/17 10:47 Oxycontin PO Q12H PRN Pain Oxycodone HCl 5 mg 08/01/17 10:47 Roxicodone *Ir* PO Q6H PRN Pain Pantoprazole Sodium 40 mg 08/03/17 11:27 08/04/17 10:44 Protonix Iv IVP 40 mg BID RADHA Administration Promethazine HCl/Codeine 5 ml 08/01/17 10:47 Phenergan + Codeine PO Q6HR PRN Cough Sodium Chloride 10 - 80 ml 08/01/17 08:39 08/04/17 08:13 Iv Flush IVF 10 ml PRN PRN Administration [place] Sodium Chloride 500 ml 08/04/17 08:05 Normal Saline IV PRN PRN Sodium Chloride 500 ml 08/04/17 10:48 Normal Saline IV PRN PRN Discontinued Medications Generic Name Dose Route Start Last Admin Trade Name Freq PRN Reason Stop Dose Admin Acetaminophen 650 mg 08/04/17 10:49 Tylenol PO 08/04/17 10:50 O ONE Hydrocodone Bitart/Acetaminophen 1 tab 08/01/17 10:47 08/01/17 11:53 [place] 10/325 PO 1 tab Q4H PRN Administration Pain Albuterol/Ipratropium 3 ml 08/01/17 08:38 08/01/17 08:53 Duoneb AEROSOL 08/01/17 08:39 3 ml O ONE Administration Albuterol/Ipratropium 3 ml 08/01/17 08:45 08/01/17 09:00 Duoneb AEROSOL 08/01/17 08:46 3 ml O ONE Administration Diphenhydramine HCl 25 mg 08/04/17 10:48 Benadryl PO 08/04/17 10:49 ONCE ONE Furosemide 20 mg 08/02/17 11:05 08/02/17 12:09 Lasix IVP 08/02/17 11:06 20 mg O ONE Administration Furosemide 80 mg 08/03/17 11:23 08/03/17 13:01 Lasix IVP 08/03/17 11:24 Not Given ONCE ONE Furosemide 80 mg 08/03/17 16:30 08/03/17 16:49 Lasix IVP 08/03/17 16:31 80 mg O ONE Administration Sodium Chloride 1,000 mls @ 75 mls/hr 08/01/17 10:47 08/03/17 13:00 1/2 Normal Saline IV Infused .[id number] RADHA Infusion Immune Globulin 25 g/ Sodium 250 mls @ 25 mls/hr 08/02/17 13:00 08/02/17 17: 28 Chloride IV 08/02/17 22:59 Infused O ONE Infusion Sodium Bicarbonate 150 meq/ 1,150 mls @ 125 mls/hr 08/03/17 11:30 08/03/17 16 :10 Dextrose IV Not Given .Q9H12M RADHA Cefepime HCl 2 gm/ Sodium 100 mls @ 200 mls/hr 08/03/17 12:30 08/03/17 17:17 Chloride IV Not Given Q24H RADHA Levofloxacin/Dextrose 750 mg in 150 mls @ 100 mls/hr 08/03/17 12:30 08/03/17 17:17 Levaquin Premix IV Not Given Q72H RADHA Sodium Chloride 1,000 mls @ 500 mls/hr 08/03/17 12:33 08/03/17 15:01 Normal Saline IV 08/03/17 14:32 Infused .Q2H ONE Infusion Levofloxacin/Dextrose 500 mg in 100 mls @ 100 mls/hr 08/03/17 13:00 08/03/17 17:18 Levaquin Premix IV 08/03/17 13:59 Infused O ONE Infusion Levofloxacin/Dextrose 250 mg in 50 mls @ 100 mls/hr 08/04/17 13:00 Levaquin Premix IV Q24H RADHA Sodium Bicarbonate 150 meq/ 1,000 mls @ 125 mls/hr 08/03/17 20:15 08/04/17 02 :49 Dextrose IV 08/04/17 05:15 125 mls/hr .Q8H RADHA Infusion Sodium Bicarbonate 150 meq/ 1,150 mls @ 125 mls/hr 08/03/17 21:00 08/04/17 06 :29 Dextrose IV 125 mls/hr .Q9H12M RADHA Administration Levalbuterol HCl 1.25 mg 08/01/17 09:35 08/01/17 09:52 Xopenex 1.25mg/3ml AEROSOL 08/01/17 09:36 1.25 mg O ONE Administration Methylprednisolone Sodium Succinate 125 mg 08/01/17 08:41 08/01/17 08:46 Solu-Medrol IVP 08/01/17 08:42 125 mg O ONE Administration Miscellaneous Medication 1 each 08/03/17 12:27 08/03/17 17:17 Pharmacy Consult - Renal Dosing MC 08/03/17 12:28 Not Given O ONE Oseltamivir Phosphate 75 mg 08/01/17 21:00 08/02/17 09:05 Tamiflu PO 08/06/17 09:01 75 mg BID RADHA Administration Pharmacy Consult 1 each 08/01/17 11:10 Pharmacy Consult - Fall Risk XX 08/01/17 11:11 ONE TIME ONE Vancomycin HCl 1 each 08/03/17 12:26 Pharmacy Consult - Vancomycin MC 08/03/17 12:27 O ONE - Constitutional mild distress, average body habitus, cooperative - Routine HEENT Exam Head: Present: normocephalic, atraumatic Eye: Present: EOMI, PERRL ENT: Present: mucous membranes moist - Routine Neck Exam Present: supple, full ROM, trachea midline - Routine Respiratory Exam Present: decreased breath sounds, rhonchi, wheezes. Absent: patient mechanically ventilated - Routine Cardiovascular Exam Present: RRR, S1, S2, no murmur - Routine Abdominal Exam Present: soft, normoactive bowel sounds - Routine Extremities Exam Present: no edema, non tender, full ROM - Routine Back/Spine/Pelvis Exam Back/Spine: Present: full ROM - Routine Skin Exam Present: intact, dry - Routine Neurological Exam Present: alert, oriented X3, CN II-XII intact - Routine Psychiatric Exam Present: normal affect, normal thought process - Urinary Catheter Management Straight Cath placed during this visit: yes, but has since been removed by the nurse Insertion date: 08/01/17 Insertion time: 20:15 Removal date: 08/01/17 Removal time: 20:28 Results - Laboratory Findings Laboratory: Laboratory Results - last 48 hr 08/03/17 08/03/17 08/03/17 13:43 14:30 15:58 WBC RBC Hgb Hct MCV MCH MCHC RDW Std Deviation Plt Count MPV Neutrophils % (Manual) Band Neutrophils % Monocytes % (Manual) Neutrophils # (Manual) Band Neutrophils # Monocytes # (Manual) Poikilocytosis Tear Drop Cells Ovalocytes RBC Morph Comment Patient Temperature Cancelled Alveolar Air PO2 Cancelled ABG pH Cancelled ABG pH (Temp Correct) Cancelled ABG pCO2 Cancelled ABG pCO2 (Temp Corrct Cancelled ABG pO2 Cancelled ABG pO2 (Temp Correct Cancelled ABG HCO3 Cancelled ABG Total CO2 Cancelled ABG O2 Saturation Cancelled ABG Base Excess Cancelled A-a Gradient Cancelled a/A Ratio Cancelled a/A Ratio Temp Correct Cancelled A-a O2 Difference Cancelled Liter Flow Cancelled Vent Mode Cancelled Vent Rate Cancelled FiO2 Cancelled Inspiratory Time Cancelled Expiratory Time Cancelled Tidal Volume Cancelled Mean Airway Pressure Cancelled PEEP Cancelled Inspiratory Pressure Cancelled Pressure Support Cancelled Turbidity Sodium Potassium Chloride Carbon Dioxide Anion Gap BUN Creatinine GFR Calculation BUN/Creatinine Ratio Glucose Calculated Osmolality Calcium Phosphorus Icterus Index Troponin I Albumin Plasma Lactate Specimen Hemolysis Ur Collection Type Urine, void-cc/notcc Urine Color Yellow Urine Clarity Clear Urine pH 5.5 Ur Specific [place] 1.010 L Urine Protein Trace A Urine Glucose (UA) Negative Urine Ketones Negative Urine Occult Blood 2+ A Urine Nitrate Negative Urine Bilirubin Negative Urine Urobilinogen 0.2 Ur Leukocyte Esterase Negative Urine RBC 5-10 H Urine WBC None seen Urine Bacteria None seen Urine Mucus Present Ur Culture Indicated? Cult not indicated Stool Occult Blood Negative Blood Type Antibody Screen Crossmatch ([facility]) 08/03/17 08/03/17 08/03/17 15:58 16:04 16:04 WBC RBC Hgb Hct MCV MCH MCHC RDW Std Deviation Plt Count MPV Neutrophils % (Manual) Band Neutrophils % Monocytes % (Manual) Neutrophils # (Manual) Band Neutrophils # Monocytes # (Manual) Poikilocytosis Tear Drop Cells Ovalocytes RBC Morph Comment Patient Temperature Alveolar Air PO2 ABG pH 7.393 ABG pH (Temp Correct) ABG pCO2 31 L ABG pCO2 (Temp Corrct ABG pO2 85.6 ABG pO2 (Temp Correct ABG HCO3 19.1 L ABG Total CO2 20.0 L ABG O2 Saturation 96.6 ABG Base Excess -5.3 L A-a Gradient a/A Ratio a/A Ratio Temp Correct A-a O2 Difference Liter Flow 2 Vent Mode Vent Rate FiO2 Inspiratory Time Expiratory Time Tidal Volume Mean Airway Pressure PEEP Inspiratory Pressure Pressure Support Turbidity < 20 Sodium 137 Potassium 5.4 H Chloride 105 Carbon Dioxide 19 L Anion Gap 13 BUN 41.0 H Creatinine 2.6 H D GFR Calculation 24 BUN/Creatinine Ratio 16 Glucose 144 H Calculated Osmolality 277 Calcium 8.3 L Phosphorus Icterus Index < 2 Troponin I Albumin Plasma Lactate 3.4 H Specimen Hemolysis < 15 Ur Collection Type Urine Color Urine Clarity Urine pH Ur Specific Maple Urine Protein Urine Glucose (UA) Urine Ketones Urine Occult Blood Urine Nitrate Urine Bilirubin Urine Urobilinogen Ur Leukocyte Esterase Urine RBC Urine WBC Urine Bacteria Urine Mucus Ur Culture Indicated? Stool Occult Blood Blood Type Antibody Screen Crossmatch ([facility]) 08/03/17 08/03/17 08/03/17 16:04 16:04 20:19 WBC RBC Hgb 7.6 L Hct MCV MCH MCHC RDW Std Deviation Plt Count MPV Neutrophils % (Manual) Band Neutrophils % Monocytes % (Manual) Neutrophils # (Manual) Band Neutrophils # Monocytes # (Manual) Poikilocytosis Tear Drop Cells Ovalocytes RBC Morph Comment Patient Temperature Alveolar Air PO2 ABG pH ABG pH (Temp Correct) ABG pCO2 ABG pCO2 (Temp Corrct ABG pO2 ABG pO2 (Temp Correct ABG HCO3 ABG Total CO2 ABG O2 Saturation ABG Base Excess A-a Gradient a/A Ratio a/A Ratio Temp Correct A-a O2 Difference Liter Flow Vent Mode Vent Rate FiO2 Inspiratory Time Expiratory Time Tidal Volume Mean Airway Pressure PEEP Inspiratory Pressure Pressure Support Turbidity Sodium Potassium Chloride Carbon Dioxide Anion Gap BUN Creatinine GFR Calculation BUN/Creatinine Ratio Glucose Calculated Osmolality Calcium Phosphorus Icterus Index Troponin I 0.030 Albumin Plasma Lactate 2.6 H Specimen Hemolysis < 15 Ur Collection Type Urine Color Urine Clarity Urine pH Ur Specific [place] Urine Protein Urine Glucose (UA) Urine Ketones Urine Occult Blood Urine Nitrate Urine Bilirubin Urine Urobilinogen Ur Leukocyte Esterase Urine RBC Urine WBC Urine Bacteria Urine Mucus Ur Culture Indicated? Stool Occult Blood Blood Type Antibody Screen Crossmatch ([facility]) 08/04/17 08/04/17 08/04/17 04:38 04:38 08:39 WBC 10.8 RBC 2.68 L Hgb 7.9 L Hct 25.2 L MCV 94.0 MCH 29.5 MCHC 31.3 RDW Std Deviation 47.7 Plt Count 122 L MPV 11.4 Neutrophils % (Manual) 92.0 H Band Neutrophils % 3.0 Monocytes % (Manual) 5.0 Neutrophils # (Manual) 9.9 H Band Neutrophils # 0.3 Monocytes # (Manual) 0.5 Poikilocytosis 1+ Tear Drop Cells 1+ Ovalocytes 1+ RBC Morph Comment Abnormal Patient Temperature Alveolar Air PO2 ABG pH ABG pH (Temp Correct) ABG pCO2 ABG pCO2 (Temp Corrct ABG pO2 ABG pO2 (Temp Correct ABG HCO3 ABG Total CO2 ABG O2 Saturation ABG Base Excess A-a Gradient a/A Ratio a/A Ratio Temp Correct A-a O2 Difference Liter Flow Vent Mode Vent Rate FiO2 Inspiratory Time Expiratory Time Tidal Volume Mean Airway Pressure PEEP Inspiratory Pressure Pressure Support Turbidity < 20 Sodium 141 Potassium 4.3 D Chloride 100 Carbon Dioxide 28 D Anion Gap 13 BUN 50.0 H Creatinine 2.6 H GFR Calculation 24 BUN/Creatinine Ratio 19 Glucose 196 H Calculated Osmolality 289 H Calcium 8.7 Phosphorus 3.0 Icterus Index < 2 Troponin I 0.040 Albumin 3.7 Plasma Lactate 1.6 Specimen Hemolysis < 15 < 15 Ur Collection Type Urine Color Urine Clarity Urine pH Ur Specific [place] Urine Protein Urine Glucose (UA) Urine Ketones Urine Occult Blood Urine Nitrate Urine Bilirubin Urine Urobilinogen Ur Leukocyte Esterase Urine RBC Urine WBC Urine Bacteria Urine Mucus Ur Culture Indicated? Stool Occult Blood Blood Type Antibody Screen Crossmatch ([facility]) 08/04/17 08:39 WBC RBC Hgb Hct MCV MCH MCHC RDW Std Deviation Plt Count MPV Neutrophils % (Manual) Band Neutrophils % Monocytes % (Manual) Neutrophils # (Manual) Band Neutrophils # Monocytes # (Manual) Poikilocytosis Tear Drop Cells Ovalocytes RBC Morph Comment Patient Temperature Alveolar Air PO2 ABG pH ABG pH (Temp Correct) ABG pCO2 ABG pCO2 (Temp Corrct ABG pO2 ABG pO2 (Temp Correct ABG HCO3 ABG Total CO2 ABG O2 Saturation ABG Base Excess A-a Gradient a/A Ratio a/A Ratio Temp Correct A-a O2 Difference Liter Flow Vent Mode Vent Rate FiO2 Inspiratory Time Expiratory Time Tidal Volume Mean Airway Pressure PEEP Inspiratory Pressure Pressure Support Turbidity Sodium Potassium Chloride Carbon Dioxide Anion Gap BUN Creatinine GFR Calculation BUN/Creatinine Ratio Glucose Calculated Osmolality Calcium Phosphorus Icterus Index Troponin I Albumin Plasma Lactate Specimen Hemolysis Ur Collection Type Urine Color Urine Clarity Urine pH Ur Specific [place] Urine Protein Urine Glucose (UA) Urine Ketones Urine Occult Blood Urine Nitrate Urine Bilirubin Urine Urobilinogen Ur Leukocyte Esterase Urine RBC Urine WBC Urine Bacteria Urine Mucus Ur Culture Indicated? Stool Occult Blood Blood Type O Positive Antibody Screen Negative Crossmatch ([facility]) See Detail - Diagnostic Findings Chest x-ray: image reviewed (CXR: R LLL infiltrate, stable) Assessment and Plan - Assessment and Plan Acute Hypoxic Respiratory Failure Asthma exacerbation Influenza A NORRIS Sepsis Plan: Pt currently on O2 at 2L per [place], sats stable still SOB but improving. No leukocytosis, afebrile, lactic acid 1.6. Currently on Vanco, cefepime and tamiflu, + sputum for psa. On BT's with A/A QID, solumedrol 125mg q6hr, will increase A/A to q4hr and add pulmicort BID. CXR stable. Cr still elevated but improving slightly, on IVF 100ml/hr, follow closely. - Time Spent With Patient Total time spent is greater than 50% in coordination of care (as documented) at patient's floor/unit and/or counseling patient: less than 15 minutes
[2017-08-04] MEDS: BUDESONIDE INH.SOLN 0.5mg/2ml NEB AEROSOL SCH ×2 (11:52→20:18)
[2017-08-04] MEDS ORDERED: LEVOFLOXACIN PREMIX 250 MG/50 ML BAG IV SCH (13:00)
[2017-08-04] MEDS: NS 1,000 ML IV SCH (18:01)
[2017-08-04] MEDS: GABAPENTIN 300 MG CAPSULE PO SCH (22:42)
[2017-08-05] MEDS: NS 1,000 ML IV SCH ×7 (03:51→22:07)
[2017-08-05] MEDS: METHYLPREDNISOLONE SOD SUCC 125mg/2ml INJECTION IVP SCH ×4 (03:55→21:20)
[2017-08-05] MEDS: MORPHINE SULFATE 2mg INJ IVP PRN ×5 (03:59→21:16)
[2017-08-05] MEDS: CEFEPIME 1 GM in NS 50 ML IV SCH ×2 (05:11→13:42)
[2017-08-05] MEDS: ALBUTEROL/IPRATROPIUM 2.5mg-0.5mg/3ml NEB AEROSOL SCH ×5 (05:19→20:53)
[2017-08-05] MEDS: VANCOMYCIN 1,000 MG in NS 250 ML IV SCH (06:07)
[2017-08-05] MEDS: INSULIN ASPART 100unit/ml INJECTION SQ PRN ×4 (06:16→21:16)
[2017-08-05] MEDS: SALINE FLUSH 10ml SYRINGE IVF PRN ×2 (06:17→09:33)
[2017-08-05] MEDS: BUDESONIDE INH.SOLN 0.5mg/2ml NEB AEROSOL SCH ×2 (08:37→20:53)
[2017-08-05] MEDS: ASPIRIN *EC* 81 MG TABLET PO SCH (09:30)
[2017-08-05] MEDS: DOXAZOSIN 4 MG TABLET PO SCH ×2 (09:30→21:17)
[2017-08-05] MEDS: AMLODIPINE 5 MG TABLET PO SCH (09:30)
[2017-08-05] MEDS: NYSTATIN 500,000 units/5 ml ORAL LIQUID PO SCH ×4 (09:30→21:17)
[2017-08-05] MEDS: PANTOPRAZOLE 40 MG INJECTION IVP SCH ×2 (09:33→21:17)
[2017-08-05] MEDS: HYDROCODONE/APAP 10 MG/325 MG TABLET PO PRN ×2 (09:34→13:42)
[2017-08-05] MEDS: SODIUM BICARBONATE 150 MEQ in D5W 1,000 ML IV SCH (12:38)
--- NOTE | 2017-08-05 16:27 | Progress Note ---
- Date 08/05/17 Subjective: Nacho is seen today in follow up. He reports feeling a bit better. States that he does better when pain is controlled. Pain meds are reported to be adequate right now. Occasional cough. No focal chest pain. Chart is reviewed for collateral information. Objective Vital signs: Temperature 98.6 F 08/05/17 15:26 Pulse Rate 103 H 08/05/17 15:26 Respiratory Rate 20 08/05/17 15:26 Blood Pressure 146/71 H 08/05/17 15:26 Pulse Oximetry 92 08/05/17 15:26 Height/Weight/BMI: Height 1.68 m Weight 61.3 kg Body Mass Index 21.6 - Constitutional Present: no acute distress, average body habitus, cooperative - Routine HEENT Exam Head: Present: normocephalic, atraumatic Eye: Present: EOMI, PERRL ENT: Present: mucous membranes moist - Routine Respiratory Exam Present: rhonchi, wheezes (Left lung ansari. ), diminished air movement. Absent : dyspnea - Routine Cardiovascular Exam Present: RRR, S1, S2, no murmur - Routine Abdominal Exam Present: soft, normoactive bowel sounds, non distended, non tender - Routine Extremities Exam Present: edema (mild le edema), non tender - Routine Musculoskeletal Exam Musculoskeletal: Present: normal strength, moving extremities well - Routine Skin Exam Present: intact, dry, warm - Routine Neurological Exam Present: alert, moving all extremities - Routine Psychiatric Exam Present: normal affect, cooperative Results - Labs CBC & Chem 7: 08/05/17 10:51 08/05/17 10:51 Microbiology Results: Microbiology 08/03/17 13:11 Port/Picc Blood Culture - Preliminary No Growth After 2 Days 08/03/17 13:16 Port/Picc Blood Culture - Preliminary No Growth After 2 Days 08/03/17 13:42 Sputum, Expectorated Gram Stain - Final 08/03/17 13:42 Sputum, Expectorated Sputum Culture - Final - ABG Interpretation ABG results: 08/03/17 08/03/17 15:58 15:58 ABG pH Cancelled 7.393 ABG pCO2 Cancelled 31 L ABG pO2 Cancelled 85.6 ABG HCO3 Cancelled 19.1 L ABG Total CO2 Cancelled 20.0 L ABG O2 Saturation Cancelled 96.6 ABG Base Excess Cancelled -5.3 L - Imaging and Cardiology Chest x-ray Status: image reviewed by me Additional comments: Impression: Stable subtle nodular infiltrates. . Assessment and Plan (1) Asthma with exacerbation Current visit: Yes Status: Acute Assessment and Plan: IMPRESSION Asthma exacerbation Influenza type B (POA) Severe sepsis Pneumonia (diagnosed on CT) with Pseudomonas aeruginosa in sputum Acute kidney injury on chronic kidney disease -slightly improved. (Renal ultrasound without hydronephrosis) Hyperkalemia (POA)-resolved Chest pain-with normal initial troponin and EKG Anemia of chronic disease with slow decrease in hemoglobin, was 9.9 on admission and 7.9 on 08/04/2017 . Hemoccult stool negative Acute debility, weakness Thrombocytopenia Immunocompromised secondary to Multiple Myeloma, diagnosed Oct, 2013, on chemotherapy, s/p bone marrow transplant HTN CKD stage IV OA Chronic pain, narcotic dependent PLAN Influenza- Tamiflu completed. Supportive care. Wean steroids down. Continue nebulized medication. Pseudomonal PNA- on Cefepime and Vanco. consider narrow to cefepime only? NORRIS/CKD- Follows with Dr. Carl. Hyperkalemia resolved. SCr baseline appears to be around 2.0. Serum osmo remains elevated. Increase IVF to 125ml/hr overnoc. Continue Cardura for now. Anemia, multifactorial- monitor labs. Multiple myeloma- on chemotherapy, s/p BMTx. Per Dr. Mcghee. Continue pain medications per home routine. Slow gains. Repeat labs in AM. Gabe Continue cefepime, will stop vancomycin. DVT Prophylaxis: SCD's Resuscitation Status: Full Code - Time spent with patient Time with patient PN: 25 minutes - Physician Narrative Physician: Juan José Bernal MD Narrative: Date: 08/05/17 Time: 1809 Have independently interviewed and examined pt. Chart reviewed. Case discussed with my [employer] DIRECTOR. Care plan developed with my supervision; agree with above. Doing fair. Still feeling SOA, but not as pronounced as at admit. Less cough and congestion. Denies nasal congestion or fullness. Appetite decreased. No nausea or ab pain. Reports bowels moving. Urine slow-struggles to empty. No pain or burning with urination. Strength making gains. Lungs: decreased breath sounds. CV: tachy, regular AB: soft nt BS present MSE : awake alert Plan: Will continue with cefepime - can stop Vancomycin. Steroids decreased. Continue IVF. Monitor lab. Hospital Course Summary Disclaimer: The visit summary below is not to be considered part of the above Progress Note. Hospital Course: 08/01/17 Admit, observation status, under the hospitalist service. Asthma exacerbation: DuoNeb QID + Xopenex PRN; Solu-Medrol 125 mg Q6h IV -- dc ADELINA d/t immunocompromised state. Check viral respiratory panel. Ativan PRN anxiety/air hunger. Hyperkalemia: IVF. Debility/weakness: Consult PT/OT. Check orthostatics. CKD stage IV: unsure of baseline creatinine. IVF for hydration, recheck in am. Chronic pain: continue home pain meds. Multiple Myeloma: consult Dr. Mcghee. Advanced directives: Sister Светлана is DPOA; would want an attempt at resuscitation. Not interested in discussing end-of-life per sister, who has noted a significant functional decline over the last year. Influenza type A - Tamiflu 75mg BID for treatment 08/02/17 Continue Tamiflu for influenza. Continue IV steroids and breathing treatments - still with wheezing, poor air exchange, and conversational dyspnea. Repeat CXR negative for pneumonia. Sputum positive for pseudomonas - d/w Dr. Meyer - w/o fever or infiltrate on CXR it's most likely colonization. Hyperkalemia increased to 5.9 - IV Lasix given. Repeat BMP in am. Dr. Mcghee recommends IVIG. Hgb decreased from 9.9 to 8.5; platelets also down to 121. Recheck in am. PT eval: they recommend IP PT and home with home health. 08/03/2017 Continue Tamiflu for influenza. Dose decreased due to renal function. Continue IV steroids and breathing treatments - still with wheezing, poor air exchange, and conversational dyspnea. Sputum positive for pseudomonas Consulted Dr. Kerr today regarding asthma exacerbation and positive sputum with Pseudomonas. May need antibiotics. Consider CT chest without contrast if patient able to lie flat. Check EKG and troponin regarding chest pain. (EKG showed normal sinus rhythm) Discussed the patient's chronic kidney disease with worsening creatinine and elevated calcium with Dr. Carl and he recommended D5W with 3 A of bicarbonate to run at 125 an hour and Lasix 1. We'll recheck basic metabolic profile later today. If potassium is not improving he will need transfer to [place] for possible dialysis. He suspects his increased creatinine may be due to ATN caused by his recent influenza illness. We'll check Hemoccults and monitor hemoglobin regarding drop in hemoglobin and increase in BUN. Will start Protonix IV. Change to inpatient status secondary to acute kidney injury with hyperkalemia Lactate was obtained and was 3.6. Will give a bolus IV fluid if chest x-ray shows no pulmonary edema. No pulmonary edema on my read. Give 1 L normal saline bolus over 2 hours. Will start cefepime, Vancomycin, Levaquin. Obtain blood cultures 2. 400 of urine was noted on post void bladder scan. Renal ultrasound is pending. 08/04/17 Continue Tamiflu for influenza. Dose decreased due to renal function. Continue IV steroids and breathing treatments - still with wheezing, poor air exchange, dyspnea slightly improved today. Started on vancomycin, cefepime, Levaquin yesterday for severe sepsis/ pneumonia. Blood cultures are pending. Can likely adjust antibiotics for treatment of Pseudomonas pneumonia. ReCheck EKG (this morning's EKG shows normal sinus rhythm) and serial troponin now regarding chest pain. (EKG yesterday showed normal sinus rhythm with normal troponins) Chest x-ray today We'll discuss if transfusion needed with the patient's oncologist Dr. Mcghee Discussed with collection clerk, Dr. Carl and he recommends discontinuation of D5 with bicarbonate and initiating normal saline. 08/05/17 Influenza- Tamiflu completed. Supportive care. Wean steroids down. Continue nebulized medication. Pseudomonal PNA- Continue cefepime. Can discontinue vancomycin. NORRIS/CKD- Follows with Dr. Carl. Hyperkalemia resolved. SCr baseline appears to be around 2.0. Serum osmo remains elevated. Increase IVF to 125ml/hr overnoc. Continue Cardura for now. Anemia, multifactorial- monitor labs. Multiple myeloma- on chemotherapy, s/p BMTx. Per Dr. Mcghee. Continue pain medications per home routine.
--- NOTE | 2017-08-05 18:00 | Pulmonology Progress Note ---
Subjective Principal diagnosis: SOB Interval history: off O2. feeling better. still coughing and wheezing. taking PO Exam Vital signs: Temperature 97.6 F 08/05/17 16:00 Pulse Rate 96 08/05/17 16:03 Respiratory Rate 18 08/05/17 16:41 Blood Pressure 134/67 08/05/17 16:00 Pulse Oximetry 93 08/05/17 16:41 Inpatient Medications: Generic Name Dose Route Start Last Admin Trade Name Freq PRN Reason Stop Dose Admin Hydrocodone Bitart/Acetaminophen 1 - 2 tab 08/01/17 14:30 08/05/17 13:42 [place] 10/325 PO 1 tab Q4H PRN Administration Pain Albuterol/Ipratropium 3 ml 08/04/17 12:00 08/05/17 16:41 Duoneb AEROSOL 3 ml Q4HR RADHA Administration Alprazolam 0.5 mg 08/01/17 10:47 08/02/17 20:46 Xanax PO 0.5 mg BID PRN Administration Anxiety Amlodipine Besylate 5 mg 08/02/17 09:00 08/05/17 09:30 Norvasc PO 5 mg DAILY RADHA Administration Aspirin 81 mg 08/02/17 09:00 08/05/17 09:30 Ecotrin PO 81 mg DAILY RADHA Administration Budesonide 0.5 mg 08/04/17 11:44 08/05/17 08:37 Pulmicort Inhalation AEROSOL 0.5 mg RTBID RADHA Administration Dextrose 20 ml 08/04/17 08:10 D50%W IVP PRN PRN Hypoglycemia Doxazosin Mesylate 4 mg 08/01/17 21:00 08/05/17 09:30 Cardura PO 4 mg BID RADHA Administration Fentanyl 25 mcg 08/04/17 10:47 08/04/17 11:06 Duragesic Patch TD 25 mcg Q72H RADHA Administration Fentanyl Citrate 1 removal 08/04/17 11:00 08/04/17 11:12 Duragesic Patch Removal TD 1 removal Q3D RADHA Administration Gabapentin 300 mg 08/01/17 21:00 08/04/17 22:42 Neurontin PO 300 mg HS RADHA Administration Glucose 37.5 gm 08/04/17 08:10 Glutose 15 PO PRN PRN Hypoglycemia Hydromorphone HCl 2 mg 08/01/17 10:47 Dilaudid PO Q4H PRN Pain Cefepime HCl 1 gm/ Sodium 50 mls @ 200 mls/hr 08/03/17 14:00 08/05/17 13:57 Chloride IV Infused Q12H [facility] Infusion Vancomycin HCl 1,000 mg/ 250 mls @ 250 mls/hr 08/03/17 18:00 08/05/17 07:07 Sodium Chloride IV Infused Q36H [facility] Infusion Sodium Chloride 1,000 mls @ 125 mls/hr 08/04/17 08:30 08/05/17 17:18 Normal Saline IV Not Given .Q8H [facility] Insulin Aspart 1 - 5 unit 08/04/17 08:10 08/05/17 14:41 Novolog SQ 1 unit SS PRN Administration Hyperglycemia Protocol Levalbuterol HCl 1.25 mg 08/01/17 10:47 08/03/17 08:53 Xopenex 1.25mg/3ml AEROSOL 1.25 mg Q4HR PRN Administration Shortness of air Lorazepam 0.5 mg 08/01/17 10:47 Ativan Inj IVP Q4H PRN Anxiety/Air hunger/Agitation Menthol 1 lozenge 08/01/17 10:47 Ricola Sf MM PRN PRN Cough Methylprednisolone Sodium Succinate 80 mg 08/05/17 16:34 Solu-Medrol IVP Q6HR [facility] Morphine Sulfate 2 mg 08/01/17 10:47 08/05/17 13:43 Morphine Sulfate Inj IVP 2 mg Q2HR PRN Administration Pain /Air hunger Nystatin 5 ml 08/01/17 13:00 08/05/17 17:12 Mycostatin PO 5 ml QID [facility] Administration Oxycodone HCl 20 mg 08/01/17 10:47 Oxycontin PO Q12H PRN Pain Oxycodone HCl 5 mg 08/01/17 10:47 Roxicodone *Ir* PO Q6H PRN Pain Pantoprazole Sodium 40 mg 08/03/17 11:27 08/05/17 09:33 Protonix Iv IVP 40 mg BID RADHA Administration Promethazine HCl/Codeine 5 ml 08/01/17 10:47 Phenergan + Codeine PO Q6HR PRN Cough Sodium Chloride 10 - 80 ml 08/01/17 08:39 08/05/17 09:33 Iv Flush IVF 50 ml PRN PRN Administration [place]ushing Sodium Chloride 500 ml 08/04/17 10:48 Normal Saline IV PRN PRN Discontinued Medications Generic Name Dose Route Start Last Admin Trade Name Jey PRN Reason Stop Dose Admin Acetaminophen 650 mg 08/04/17 10:49 08/04/17 12:46 Tylenol PO 08/04/17 10:50 650 mg O ONE Administration Hydrocodone Bitart/Acetaminophen 1 tab 08/01/17 10:47 08/01/17 11:53 [place] 10/325 PO 1 tab Q4H PRN Administration Pain Albuterol/Ipratropium 3 ml 08/01/17 08:38 08/01/17 08:53 Duoneb AEROSOL 08/01/17 08:39 3 ml O ONE Administration Albuterol/Ipratropium 3 ml 08/01/17 08:45 08/01/17 09:00 Duoneb AEROSOL 08/01/17 08:46 3 ml O ONE Administration Albuterol/Ipratropium 3 ml 08/01/17 11:00 08/04/17 05:08 Duoneb AEROSOL 3 ml RTQID RADHA Administration Diphenhydramine HCl 25 mg 08/04/17 10:48 08/04/17 12:46 Benadryl PO 08/04/17 10:49 25 mg ONCE ONE Administration Furosemide 20 mg 08/02/17 11:05 08/02/17 12:09 Lasix IVP 08/02/17 11:06 20 mg O ONE Administration Furosemide 80 mg 08/03/17 11:23 08/03/17 13:01 Lasix IVP 08/03/17 11:24 Not Given ONCE ONE Furosemide 80 mg 08/03/17 16:30 08/03/17 16:49 Lasix IVP 08/03/17 16:31 80 mg O ONE Administration Sodium Chloride 1,000 mls @ 75 mls/hr 08/01/17 10:47 08/03/17 13:00 1/2 Normal Saline IV Infused .[id number] RADHA Infusion Immune Globulin 25 g/ Sodium 250 mls @ 25 mls/hr 08/02/17 13:00 08/02/17 17: 28 Chloride IV 08/02/17 22:59 Infused O ONE Infusion Sodium Bicarbonate 150 meq/ 1,150 mls @ 125 mls/hr 08/03/17 11:30 08/03/17 16 :10 Dextrose IV Not Given .Q9H12M RADHA Cefepime HCl 2 gm/ Sodium 100 mls @ 200 mls/hr 08/03/17 12:30 08/03/17 17:17 Chloride IV Not Given Q24H RADHA Levofloxacin/Dextrose 750 mg in 150 mls @ 100 mls/hr 08/03/17 12:30 08/03/17 17:17 Levaquin Premix IV Not Given Q72H RADHA Sodium Chloride 1,000 mls @ 500 mls/hr 08/03/17 12:33 08/03/17 15:01 Normal Saline IV 08/03/17 14:32 Infused .Q2H ONE Infusion Levofloxacin/Dextrose 500 mg in 100 mls @ 100 mls/hr 08/03/17 13:00 08/03/17 17:18 Levaquin Premix IV 08/03/17 13:59 Infused O ONE Infusion Levofloxacin/Dextrose 250 mg in 50 mls @ 100 mls/hr 08/04/17 13:00 Levaquin Premix IV Q24H RADHA Sodium Bicarbonate 150 meq/ 1,000 mls @ 125 mls/hr 08/03/17 20:15 08/04/17 02 :49 Dextrose IV 08/04/17 05:15 125 mls/hr .Q8H RADHA Infusion Sodium Bicarbonate 150 meq/ 1,150 mls @ 125 mls/hr 08/03/17 21:00 08/05/17 12 :38 Dextrose IV Not Given .Q9H12M RADHA Levalbuterol HCl 1.25 mg 08/01/17 09:35 08/01/17 09:52 Xopenex 1.25mg/3ml AEROSOL 08/01/17 09:36 1.25 mg O ONE Administration Methylprednisolone Sodium Succinate 125 mg 08/01/17 08:41 08/01/17 08:46 Solu-Medrol IVP 08/01/17 08:42 125 mg O ONE Administration Methylprednisolone Sodium Succinate 125 mg 08/01/17 15:00 08/05/17 14:41 Solu-Medrol IVP 125 mg Q6HR RADHA Administration Miscellaneous Medication 1 each 08/03/17 12:27 08/03/17 17:17 Pharmacy Consult - Renal Dosing 08/03/17 12:28 Not Given O ONE Oseltamivir Phosphate 75 mg 08/01/17 21:00 08/02/17 09:05 Tamiflu PO 08/06/17 09:01 75 mg BID RADHA Administration Oseltamivir Phosphate 30 mg 08/03/17 09:00 08/05/17 09:30 Tamiflu PO 08/05/17 09:01 30 mg DAILY RADHA Administration Pharmacy Consult 1 each 08/01/17 11:10 Pharmacy Consult - Fall Risk XX 08/01/17 11:11 ONE TIME ONE Sodium Chloride 500 ml 08/04/17 08:05 Normal Saline IV PRN PRN Vancomycin HCl 1 each 08/03/17 12:26 08/05/17 09:46 Pharmacy Consult - Vancomycin MC 08/03/17 12:27 Not Given O ONE - Constitutional no acute distress - Routine HEENT Exam Head: Present: normocephalic, atraumatic Eye: Absent: conjunctival icterus - Routine Neck Exam Present: supple - Routine Respiratory Exam Present: prolonged expiratory phase, wheezes - Routine Cardiovascular Exam Present: RRR - Routine Extremities Exam Absent: cyanosis, clubbing - Urinary Catheter Management Straight Cath placed during this visit: yes, but has since been removed by the nurse Insertion date: 08/01/17 Insertion time: 20:15 Removal date: 08/01/17 Removal time: 20:28 Results - Laboratory Findings Laboratory: Laboratory Results - last 48 hr 08/03/17 08/03/17 08/03/17 15:58 15:58 20:19 WBC RBC Hgb Hct MCV MCH MCHC RDW Std Deviation Plt Count MPV Immature Gran % (Auto) Neut % (Auto) Lymph % (Auto) Mathews % (Auto) Eos % (Auto) Baso % (Auto) Neut # (Auto) Lymph # (Auto) Mathews # (Auto) Eos # (Auto) Baso # (Auto) Abs Immat Gran (auto) Neutrophils % (Manual) Band Neutrophils % Lymphocytes % (Manual) Monocytes % (Manual) Metamyelocytes % Neutrophils # (Manual) Band Neutrophils # Lymphocytes # (Manual) Monocytes # (Manual) Metamyelocytes # Poikilocytosis Anisocytosis Tear Drop Cells Ovalocytes RBC Morph Comment Patient Temperature Cancelled Alveolar Air PO2 Cancelled ABG pH Cancelled 7.393 ABG pH (Temp Correct) Cancelled ABG pCO2 Cancelled 31 L ABG pCO2 (Temp Corrct Cancelled ABG pO2 Cancelled 85.6 ABG pO2 (Temp Correct Cancelled ABG HCO3 Cancelled 19.1 L ABG Total CO2 Cancelled 20.0 L ABG O2 Saturation Cancelled 96.6 ABG Base Excess Cancelled -5.3 L A-a Gradient Cancelled a/A Ratio Cancelled a/A Ratio Temp Correct Cancelled A-a O2 Difference Cancelled Liter Flow Cancelled 2 Vent Mode Cancelled Vent Rate Cancelled FiO2 Cancelled Inspiratory Time Cancelled Expiratory Time Cancelled Tidal Volume Cancelled Mean Airway Pressure Cancelled PEEP Cancelled Inspiratory Pressure Cancelled Pressure Support Cancelled Turbidity Sodium Potassium Chloride Carbon Dioxide Anion Gap BUN Creatinine GFR Calculation BUN/Creatinine Ratio Glucose Glucometer Calculated Osmolality Calcium Phosphorus Icterus Index Troponin I Albumin Plasma Lactate 2.6 H Specimen Hemolysis Stool Occult Blood Blood Type Antibody Screen Crossmatch ([facility]) Blood Product Request 08/04/17 08/04/17 08/04/17 04:38 04:38 07:27 WBC 10.8 RBC 2.68 L Hgb 7.9 L Hct 25.2 L MCV 94.0 MCH 29.5 MCHC 31.3 RDW Std Deviation 47.7 Plt Count 122 L MPV 11.4 Immature Gran % (Auto) Neut % (Auto) Lymph % (Auto) Mathews % (Auto) Eos % (Auto) Baso % (Auto) Neut # (Auto) Lymph # (Auto) Mathews # (Auto) Eos # (Auto) Baso # (Auto) Abs Immat Gran (auto) Neutrophils % (Manual) 92.0 H Band Neutrophils % 3.0 Lymphocytes % (Manual) Monocytes % (Manual) 5.0 Metamyelocytes % Neutrophils # (Manual) 9.9 H Band Neutrophils # 0.3 Lymphocytes # (Manual) Monocytes # (Manual) 0.5 Metamyelocytes # Poikilocytosis 1+ Anisocytosis Tear Drop Cells 1+ Ovalocytes 1+ RBC Morph Comment Abnormal Patient Temperature Alveolar Air PO2 ABG pH ABG pH (Temp Correct) ABG pCO2 ABG pCO2 (Temp Corrct ABG pO2 ABG pO2 (Temp Correct ABG HCO3 ABG Total CO2 ABG O2 Saturation ABG Base Excess A-a Gradient a/A Ratio a/A Ratio Temp Correct A-a O2 Difference Liter Flow Vent Mode Vent Rate FiO2 Inspiratory Time Expiratory Time Tidal Volume Mean Airway Pressure PEEP Inspiratory Pressure Pressure Support Turbidity < 20 Sodium 141 Potassium 4.3 D Chloride 100 Carbon Dioxide 28 D Anion Gap 13 BUN 50.0 H Creatinine 2.6 H GFR Calculation 24 BUN/Creatinine Ratio 19 Glucose 196 H Glucometer Calculated Osmolality 289 H Calcium 8.7 Phosphorus 3.0 Icterus Index < 2 Troponin I Albumin 3.7 Plasma Lactate 1.6 Specimen Hemolysis < 15 Stool Occult Blood Negative Blood Type Antibody Screen Crossmatch ([facility]) Blood Product Request 08/04/17 08/04/17 08/04/17 08:39 08:39 10:45 WBC RBC Hgb Hct MCV MCH MCHC RDW Std Deviation Plt Count MPV Immature Gran % (Auto) Neut % (Auto) Lymph % (Auto) Mathews % (Auto) Eos % (Auto) Baso % (Auto) Neut # (Auto) Lymph # (Auto) Mathews # (Auto) Eos # (Auto) Baso # (Auto) Abs Immat Gran (auto) Neutrophils % (Manual) Band Neutrophils % Lymphocytes % (Manual) Monocytes % (Manual) Metamyelocytes % Neutrophils # (Manual) Band Neutrophils # Lymphocytes # (Manual) Monocytes # (Manual) Metamyelocytes # Poikilocytosis Anisocytosis Tear Drop Cells Ovalocytes RBC Morph Comment Patient Temperature Alveolar Air PO2 ABG pH ABG pH (Temp Correct) ABG pCO2 ABG pCO2 (Temp Corrct ABG pO2 ABG pO2 (Temp Correct ABG HCO3 ABG Total CO2 ABG O2 Saturation ABG Base Excess A-a Gradient a/A Ratio a/A Ratio Temp Correct A-a O2 Difference Liter Flow Vent Mode Vent Rate FiO2 Inspiratory Time Expiratory Time Tidal Volume Mean Airway Pressure PEEP Inspiratory Pressure Pressure Support Turbidity Sodium Potassium Chloride Carbon Dioxide Anion Gap BUN Creatinine GFR Calculation BUN/Creatinine Ratio Glucose Glucometer 257 Calculated Osmolality Calcium Phosphorus Icterus Index Troponin I 0.040 Albumin Plasma Lactate Specimen Hemolysis < 15 Stool Occult Blood Blood Type O Positive Antibody Screen Negative Crossmatch ([facility]) See Detail Blood Product Request 08/04/17 08/04/17 08/04/17 13:03 13:30 14:47 WBC RBC Hgb Hct MCV MCH MCHC RDW Std Deviation Plt Count MPV Immature Gran % (Auto) Neut % (Auto) Lymph % (Auto) Mathews % (Auto) Eos % (Auto) Baso % (Auto) Neut # (Auto) Lymph # (Auto) Mathews # (Auto) Eos # (Auto) Baso # (Auto) Abs Immat Gran (auto) Neutrophils % (Manual) Band Neutrophils % Lymphocytes % (Manual) Monocytes % (Manual) Metamyelocytes % Neutrophils # (Manual) Band Neutrophils # Lymphocytes # (Manual) Monocytes # (Manual) Metamyelocytes # Poikilocytosis Anisocytosis Tear Drop Cells Ovalocytes RBC Morph Comment Patient Temperature Alveolar Air PO2 ABG pH ABG pH (Temp Correct) ABG pCO2 ABG pCO2 (Temp Corrct ABG pO2 ABG pO2 (Temp Correct ABG HCO3 ABG Total CO2 ABG O2 Saturation ABG Base Excess A-a Gradient a/A Ratio a/A Ratio Temp Correct A-a O2 Difference Liter Flow Vent Mode Vent Rate FiO2 Inspiratory Time Expiratory Time Tidal Volume Mean Airway Pressure PEEP Inspiratory Pressure Pressure Support Turbidity Sodium Potassium Chloride Carbon Dioxide Anion Gap BUN Creatinine GFR Calculation BUN/Creatinine Ratio Glucose Glucometer 146 Calculated Osmolality Calcium Phosphorus Icterus Index Troponin I 0.038 Albumin Plasma Lactate Specimen Hemolysis < 15 Stool Occult Blood Blood Type Antibody Screen Crossmatch ([facility]) Blood Product Request 1 unit pc issued 08/04/17 08/04/17 08/04/17 17:30 19:35 20:32 WBC RBC Hgb 9.4 L D Hct MCV MCH MCHC RDW Std Deviation Plt Count MPV Immature Gran % (Auto) Neut % (Auto) Lymph % (Auto) Mathews % (Auto) Eos % (Auto) Baso % (Auto) Neut # (Auto) Lymph # (Auto) Mathews # (Auto) Eos # (Auto) Baso # (Auto) Abs Immat Gran (auto) Neutrophils % (Manual) Band Neutrophils % Lymphocytes % (Manual) Monocytes % (Manual) Metamyelocytes % Neutrophils # (Manual) Band Neutrophils # Lymphocytes # (Manual) Monocytes # (Manual) Metamyelocytes # Poikilocytosis Anisocytosis Tear Drop Cells Ovalocytes RBC Morph Comment Patient Temperature Alveolar Air PO2 ABG pH ABG pH (Temp Correct) ABG pCO2 ABG pCO2 (Temp Corrct ABG pO2 ABG pO2 (Temp Correct ABG HCO3 ABG Total CO2 ABG O2 Saturation ABG Base Excess A-a Gradient a/A Ratio a/A Ratio Temp Correct A-a O2 Difference Liter Flow Vent Mode Vent Rate FiO2 Inspiratory Time Expiratory Time Tidal Volume Mean Airway Pressure PEEP Inspiratory Pressure Pressure Support Turbidity Sodium Potassium Chloride Carbon Dioxide Anion Gap BUN Creatinine GFR Calculation BUN/Creatinine Ratio Glucose Glucometer 248 Calculated Osmolality Calcium Phosphorus Icterus Index Troponin I 0.042 Albumin Plasma Lactate Specimen Hemolysis < 15 Stool Occult Blood Blood Type Antibody Screen Crossmatch ([facility]) Blood Product Request 08/05/17 08/05/17 08/05/17 06:08 10:51 10:51 WBC 10.4 RBC 3.01 L Hgb 9.0 L Hct 27.7 L MCV 92.0 MCH 29.9 MCHC 32.5 RDW Std Deviation 56.5 H Plt Count 111 L MPV 10.9 Immature Gran % (Auto) Not performed Neut % (Auto) Not performed Lymph % (Auto) Not performed Mathews % (Auto) Not performed Eos % (Auto) Not performed Baso % (Auto) Not performed Neut # (Auto) Not performed Lymph # (Auto) Not performed Mathews # (Auto) Not performed Eos # (Auto) Not performed Baso # (Auto) Not performed Abs Immat Gran (auto) Not performed Neutrophils % (Manual) 88.0 H Band Neutrophils % 2.0 Lymphocytes % (Manual) 4.0 L Monocytes % (Manual) 5.0 Metamyelocytes % 1.0 H Neutrophils # (Manual) 9.2 H Band Neutrophils # 0.2 Lymphocytes # (Manual) 0.4 L Monocytes # (Manual) 0.5 Metamyelocytes # 0.1 Poikilocytosis 1+ Anisocytosis 1+ Tear Drop Cells 1+ Ovalocytes 1+ RBC Morph Comment Abnormal Patient Temperature Alveolar Air PO2 ABG pH ABG pH (Temp Correct) ABG pCO2 ABG pCO2 (Temp Corrct ABG pO2 ABG pO2 (Temp Correct ABG HCO3 ABG Total CO2 ABG O2 Saturation ABG Base Excess A-a Gradient a/A Ratio a/A Ratio Temp Correct A-a O2 Difference Liter Flow Vent Mode Vent Rate FiO2 Inspiratory Time Expiratory Time Tidal Volume Mean Airway Pressure PEEP Inspiratory Pressure Pressure Support Turbidity < 20 Sodium 144 Potassium 3.5 L D Chloride 104 Carbon Dioxide 24 Anion Gap 16 H BUN 49.0 H Creatinine 2.4 H D GFR Calculation 27 BUN/Creatinine Ratio 20 Glucose 269 H Glucometer 199 Calculated Osmolality 299 H Calcium 7.7 L D Phosphorus Icterus Index < 2 Troponin I Albumin Plasma Lactate Specimen Hemolysis < 15 Stool Occult Blood Blood Type Antibody Screen Crossmatch ([facility]) Blood Product Request 08/05/17 14:25 WBC RBC Hgb Hct MCV MCH MCHC RDW Std Deviation Plt Count MPV Immature Gran % (Auto) Neut % (Auto) Lymph % (Auto) Mathews % (Auto) Eos % (Auto) Baso % (Auto) Neut # (Auto) Lymph # (Auto) Mathews # (Auto) Eos # (Auto) Baso # (Auto) Abs Immat Gran (auto) Neutrophils % (Manual) Band Neutrophils % Lymphocytes % (Manual) Monocytes % (Manual) Metamyelocytes % Neutrophils # (Manual) Band Neutrophils # Lymphocytes # (Manual) Monocytes # (Manual) Metamyelocytes # Poikilocytosis Anisocytosis Tear Drop Cells Ovalocytes RBC Morph Comment Patient Temperature Alveolar Air PO2 ABG pH ABG pH (Temp Correct) ABG pCO2 ABG pCO2 (Temp Corrct ABG pO2 ABG pO2 (Temp Correct ABG HCO3 ABG Total CO2 ABG O2 Saturation ABG Base Excess A-a Gradient a/A Ratio a/A Ratio Temp Correct A-a O2 Difference Liter Flow Vent Mode Vent Rate FiO2 Inspiratory Time Expiratory Time Tidal Volume Mean Airway Pressure PEEP Inspiratory Pressure Pressure Support Turbidity Sodium Potassium Chloride Carbon Dioxide Anion Gap BUN Creatinine GFR Calculation BUN/Creatinine Ratio Glucose Glucometer 187 Calculated Osmolality Calcium Phosphorus Icterus Index Troponin I Albumin Plasma Lactate Specimen Hemolysis Stool Occult Blood Blood Type Antibody Screen Crossmatch ([facility]) Blood Product Request Assessment and Plan (1) Lactic acidosis Status: Acute Current Visit: Yes (2) Acute kidney injury Status: Acute Current Visit: Yes (3) Influenza A Status: Acute Assessment and plan: finished oseltamivir Current Visit: Yes (4) Asthma with exacerbation Status: Acute Assessment and plan: on methylpred 80 q 6 Albuterol/ipratropium q4 budesonide BID Current Visit: Yes (5) Pneumonia Status: Acute Assessment and plan: CT reviewed. innumerable nodular infiltrates c/w infectious etiology. sputum with Pseudomonas. Currently on Cefepime and Vancomycin. Monitor for resolution. Current Visit: Yes - Assessment and Plan Acute Hypoxic Respiratory Failure Asthma exacerbation Influenza A NORRIS Sepsis - Time Spent With Patient Total time spent is greater than 50% in coordination of care (as documented) at patient's floor/unit and/or counseling patient: less than 15 minutes
[2017-08-05] MEDS: GABAPENTIN 300 MG CAPSULE PO SCH (21:18)
[2017-08-06] MEDS: HYDROCODONE/APAP 10 MG/325 MG TABLET PO PRN ×5 (01:51→21:29)
[2017-08-06] MEDS: ALPRAZolam 0.5 MG TABLET PO PRN ×3 (01:51→21:29)
[2017-08-06] MEDS: MORPHINE SULFATE 2mg INJ IVP PRN ×5 (01:51→21:29)
[2017-08-06] MEDS: NS 1,000 ML IV SCH ×3 (02:48→23:15)
[2017-08-06] MEDS: METHYLPREDNISOLONE SOD SUCC 125mg/2ml INJECTION IVP SCH ×4 (03:02→21:48)
[2017-08-06] MEDS: CEFEPIME 1 GM in NS 50 ML IV SCH ×2 (03:02→13:32)
[2017-08-06] MEDS: ALBUTEROL/IPRATROPIUM 2.5mg-0.5mg/3ml NEB AEROSOL SCH ×7 (03:05→22:50)
[2017-08-06] MEDS: SALINE FLUSH 10ml SYRINGE IVF PRN ×5 (04:39→21:23)
[2017-08-06] MEDS: INSULIN ASPART 100unit/ml INJECTION SQ PRN ×4 (06:47→21:35)
[2017-08-06] MEDS: BUDESONIDE INH.SOLN 0.5mg/2ml NEB AEROSOL SCH ×2 (08:13→19:01)
[2017-08-06] MEDS: PANTOPRAZOLE 40 MG INJECTION IVP SCH (08:45)
[2017-08-06] MEDS: ASPIRIN *EC* 81 MG TABLET PO SCH (08:45)
[2017-08-06] MEDS: AMLODIPINE 5 MG TABLET PO SCH (08:45)
[2017-08-06] MEDS: NYSTATIN 500,000 units/5 ml ORAL LIQUID PO SCH ×4 (08:45→21:21)
[2017-08-06] MEDS: DOXAZOSIN 4 MG TABLET PO SCH ×2 (08:45→21:48)
--- NOTE | 2017-08-06 10:10 | XRay Report ---
Indication: pneumonia PROCEDURE: XR chest 1V: Encounter: Initial Comparison: August 04, 2017 Findings: Lungs are stable without evidence of new or worsening airspace disease. No pleural effusion or pneumothorax. Heart size, pulmonary vascularity and mediastinal contours are stable. Impression: Stable appearance of the chest with airspace disease that is difficult to appreciate radiographically. .
[2017-08-06] MEDS ORDERED: LIDOCAINE 2% JELLY (Urojet) 20ml MM ONE (14:00)
--- NOTE | 2017-08-06 14:10 | Pulmonology Progress Note ---
Subjective Principal diagnosis: SOB Interval history: Pt currently in bed, states breathing is better each day. + cough with minimal sputum. Exam Vital signs: Temperature 97.6 F 08/06/17 07:46 Pulse Rate 111 H 08/06/17 11:05 Respiratory Rate 20 08/06/17 11:46 Blood Pressure 145/70 H 08/06/17 11:05 Pulse Oximetry 95 08/06/17 11:46 Inpatient Medications: Generic Name Dose Route Start Last Admin Trade Name Freq PRN Reason Stop Dose Admin Hydrocodone Bitart/Acetaminophen 1 - 2 tab 08/01/17 14:30 08/06/17 11:09 Basalt 10/325 PO 2 tab Q4H PRN Administration Pain Albuterol/Ipratropium 3 ml 08/04/17 12:00 08/06/17 11:45 Duoneb AEROSOL 3 ml Q4HR RADHA Administration Alprazolam 0.5 mg 08/01/17 10:47 08/06/17 11:20 Xanax PO 0.5 mg BID PRN Administration Anxiety Amlodipine Besylate 5 mg 08/02/17 09:00 08/06/17 08:45 Norvasc PO 5 mg DAILY RADHA Administration Aspirin 81 mg 08/02/17 09:00 08/06/17 08:45 Ecotrin PO 81 mg DAILY RADHA Administration Budesonide 0.5 mg 08/04/17 11:44 08/06/17 08:13 Pulmicort Inhalation AEROSOL 0.5 mg RTBID RADHA Administration Dextrose 20 ml 08/04/17 08:10 D50%W IVP PRN PRN Hypoglycemia Doxazosin Mesylate 4 mg 08/01/17 21:00 08/06/17 08:45 Cardura PO 4 mg BID RADHA Administration Fentanyl 25 mcg 08/04/17 10:47 08/04/17 11:06 Duragesic Patch TD 25 mcg Q72H RADHA Administration Fentanyl Citrate 1 removal 08/04/17 11:00 08/04/17 11:12 Duragesic Patch Removal TD 1 removal Q3D RADHA Administration Gabapentin 300 mg 08/01/17 21:00 08/05/17 21:18 Neurontin PO 300 mg HS RADHA Administration Glucose 37.5 gm 08/04/17 08:10 Glutose 15 PO PRN PRN Hypoglycemia Hydromorphone HCl 2 mg 08/01/17 10:47 Dilaudid PO Q4H PRN Pain Cefepime HCl 1 gm/ Sodium 50 mls @ 200 mls/hr 08/03/17 14:00 08/06/17 13:59 Chloride IV Infused Q12H RADHA Infusion Sodium Chloride 1,000 mls @ 125 mls/hr 08/04/17 08:30 08/06/17 03:20 Normal Saline IV 125 mls/hr .Q8H RADHA Infusion Insulin Aspart 1 - 5 unit 08/04/17 08:10 08/06/17 13:52 Novolog SQ 1 unit SS PRN Administration Hyperglycemia Protocol Levalbuterol HCl 1.25 mg 08/01/17 10:47 08/03/17 08:53 Xopenex 1.25mg/3ml AEROSOL 1.25 mg Q4HR PRN Administration Shortness of air Lorazepam 0.5 mg 08/01/17 10:47 08/05/17 21:15 Ativan Inj IVP 0.5 mg Q4H PRN Administration Anxiety/Air hunger/Agitation Menthol 1 lozenge 08/01/17 10:47 Ricola Sf MM PRN PRN Cough Methylprednisolone Sodium Succinate 80 mg 08/05/17 16:34 08/06/17 08:43 Solu-Medrol IVP 80 mg Q6HR RADHA Administration Morphine Sulfate 2 mg 08/01/17 10:47 08/06/17 11:10 Morphine Sulfate Inj IVP 2 mg Q2HR PRN Administration Pain /Air hunger Nystatin 5 ml 08/01/17 13:00 08/06/17 13:32 Mycostatin PO 5 ml QID RADHA Administration Oxycodone HCl 20 mg 08/01/17 10:47 Oxycontin PO Q12H PRN Pain Oxycodone HCl 5 mg 08/01/17 10:47 Roxicodone *Ir* PO Q6H PRN Pain Pantoprazole Sodium 40 mg 08/03/17 11:27 08/06/17 08:45 Protonix Iv IVP 40 mg BID RADHA Administration Promethazine HCl/Codeine 5 ml 08/01/17 10:47 Phenergan + Codeine PO Q6HR PRN Cough Sodium Chloride 10 - 80 ml 08/01/17 08:39 08/06/17 08:45 Iv Flush IVF 30 ml PRN PRN Administration Flushing Sodium Chloride 500 ml 08/04/17 10:48 Normal Saline IV PRN PRN Discontinued Medications Generic Name Dose Route Start Last Admin Trade Name Freq PRN Reason Stop Dose Admin Acetaminophen 650 mg 08/04/17 10:49 08/04/17 12:46 Tylenol PO 08/04/17 10:50 650 mg O ONE Administration Hydrocodone Bitart/Acetaminophen 1 tab 08/01/17 10:47 08/01/17 11:53 Basalt 10/325 PO 1 tab Q4H PRN Administration Pain Albuterol/Ipratropium 3 ml 08/01/17 08:38 08/01/17 08:53 Duoneb AEROSOL 08/01/17 08:39 3 ml O ONE Administration Albuterol/Ipratropium 3 ml 08/01/17 08:45 08/01/17 09:00 Duoneb AEROSOL 08/01/17 08:46 3 ml O ONE Administration Albuterol/Ipratropium 3 ml 08/01/17 11:00 08/04/17 05:08 Duoneb AEROSOL 3 ml RTQID RADHA Administration Diphenhydramine HCl 25 mg 08/04/17 10:48 08/04/17 12:46 Benadryl PO 08/04/17 10:49 25 mg ONCE ONE Administration Furosemide 20 mg 08/02/17 11:05 08/02/17 12:09 Lasix IVP 08/02/17 11:06 20 mg O ONE Administration Furosemide 80 mg 08/03/17 11:23 08/03/17 13:01 Lasix IVP 08/03/17 11:24 Not Given ONCE ONE Furosemide 80 mg 08/03/17 16:30 08/03/17 16:49 Lasix IVP 08/03/17 16:31 80 mg O ONE Administration Sodium Chloride 1,000 mls @ 75 mls/hr 08/01/17 10:47 08/03/17 13:00 1/2 Normal Saline IV Infused .[id number] RADHA Infusion Immune Globulin 25 g/ Sodium 250 mls @ 25 mls/hr 08/02/17 13:00 08/02/17 17: 28 Chloride IV 08/02/17 22:59 Infused O ONE Infusion Sodium Bicarbonate 150 meq/ 1,150 mls @ 125 mls/hr 08/03/17 11:30 08/03/17 16 :10 Dextrose IV Not Given .Q9H12M RADHA Cefepime HCl 2 gm/ Sodium 100 mls @ 200 mls/hr 08/03/17 12:30 08/03/17 17:17 Chloride IV Not Given Q24H RADHA Levofloxacin/Dextrose 750 mg in 150 mls @ 100 mls/hr 08/03/17 12:30 08/03/17 17:17 Levaquin Premix IV Not Given Q72H RADHA Sodium Chloride 1,000 mls @ 500 mls/hr 08/03/17 12:33 08/03/17 15:01 Normal Saline IV 08/03/17 14:32 Infused .Q2H ONE Infusion Levofloxacin/Dextrose 500 mg in 100 mls @ 100 mls/hr 08/03/17 13:00 08/03/17 17:18 Levaquin Premix IV 08/03/17 13:59 Infused O ONE Infusion Levofloxacin/Dextrose 250 mg in 50 mls @ 100 mls/hr 08/04/17 13:00 Levaquin Premix IV Q24H RADHA Vancomycin HCl 1,000 mg/ 250 mls @ 250 mls/hr 08/03/17 18:00 08/05/17 07:07 Sodium Chloride IV Infused Q36H RAHDA Infusion Sodium Bicarbonate 150 meq/ 1,000 mls @ 125 mls/hr 08/03/17 20:15 08/04/17 02 :49 Dextrose IV 08/04/17 05:15 125 mls/hr .Q8H RADHA Infusion Sodium Bicarbonate 150 meq/ 1,150 mls @ 125 mls/hr 08/03/17 21:00 08/05/17 12 :38 Dextrose IV Not Given .Q9H12M RADHA Levalbuterol HCl 1.25 mg 08/01/17 09:35 08/01/17 09:52 Xopenex 1.25mg/3ml AEROSOL 08/01/17 09:36 1.25 mg O ONE Administration Lidocaine HCl 20 ml 08/06/17 14:00 Urojet MM 08/06/17 14:01 O ONE Methylprednisolone Sodium Succinate 125 mg 08/01/17 08:41 08/01/17 08:46 Solu-Medrol IVP 08/01/17 08:42 125 mg O ONE Administration Methylprednisolone Sodium Succinate 125 mg 08/01/17 15:00 08/05/17 14:41 Solu-Medrol IVP 125 mg Q6HR RADHA Administration Miscellaneous Medication 1 each 08/03/17 12:27 08/03/17 17:17 Pharmacy Consult - Renal Dosing 08/03/17 12:28 Not Given O ONE Oseltamivir Phosphate 75 mg 08/01/17 21:00 08/02/17 09:05 Tamiflu PO 08/06/17 09:01 75 mg BID RADHA Administration Oseltamivir Phosphate 30 mg 08/03/17 09:00 08/05/17 09:30 Tamiflu PO 08/05/17 09:01 30 mg DAILY RADHA Administration Pharmacy Consult 1 each 08/01/17 11:10 Pharmacy Consult - Fall Risk XX 08/01/17 11:11 ONE TIME ONE Sodium Chloride 500 ml 08/04/17 08:05 Normal Saline IV PRN PRN Vancomycin HCl 1 each 08/03/17 12:26 08/05/17 09:46 Pharmacy Consult - Vancomycin 08/03/17 12:27 Not Given O ONE - Constitutional no acute distress, average body habitus, cooperative - Routine HEENT Exam Head: Present: normocephalic, atraumatic Eye: Present: EOMI, PERRL ENT: Present: mucous membranes moist - Routine Neck Exam Present: supple, full ROM, trachea midline - Routine Respiratory Exam Present: wheezes. Absent: accessory muscle use, patient mechanically ventilated Comments: faint wheezes - Routine Cardiovascular Exam Present: RRR, S1, S2, no murmur - Routine Abdominal Exam Present: soft, normoactive bowel sounds - Routine Extremities Exam Present: no edema, non tender, full ROM - Routine Back/Spine/Pelvis Exam Back/Spine: Present: full ROM - Routine Skin Exam Present: intact, dry - Routine Neurological Exam Present: alert, oriented X3, CN II-XII intact - Routine Psychiatric Exam Present: normal affect, normal thought process - Urinary Catheter Management Straight Cath placed during this visit: yes, but has since been removed by the nurse Insertion date: 08/01/17 Insertion time: 20:15 Removal date: 08/01/17 Removal time: 20:28 Results - Laboratory Findings Laboratory: Laboratory Results - last 48 hr 08/04/17 08/04/17 08/04/17 07:27 08:39 10:45 WBC RBC Hgb Hct MCV MCH MCHC RDW Std Deviation Plt Count MPV Immature Gran % (Auto) Neut % (Auto) Lymph % (Auto) Lares % (Auto) Eos % (Auto) Baso % (Auto) Neut # (Auto) Lymph # (Auto) Lares # (Auto) Eos # (Auto) Baso # (Auto) Abs Immat Gran (auto) Neutrophils % (Manual) Band Neutrophils % Lymphocytes % (Manual) Monocytes % (Manual) Metamyelocytes % Neutrophils # (Manual) Band Neutrophils # Lymphocytes # (Manual) Monocytes # (Manual) Metamyelocytes # Poikilocytosis Anisocytosis Tear Drop Cells Ovalocytes RBC Morph Comment Turbidity Sodium Potassium Chloride Carbon Dioxide Anion Gap BUN Creatinine GFR Calculation BUN/Creatinine Ratio Glucose Glucometer 257 Calculated Osmolality Calcium Phosphorus Magnesium Icterus Index Troponin I Albumin Specimen Hemolysis Stool Occult Blood Negative Crossmatch ([facility]) See Detail 08/04/17 08/04/17 08/04/17 14:47 17:30 19:35 WBC RBC Hgb 9.4 L D Hct MCV MCH MCHC RDW Std Deviation Plt Count MPV Immature Gran % (Auto) Neut % (Auto) Lymph % (Auto) Lares % (Auto) Eos % (Auto) Baso % (Auto) Neut # (Auto) Lymph # (Auto) Lares # (Auto) Eos # (Auto) Baso # (Auto) Abs Immat Gran (auto) Neutrophils % (Manual) Band Neutrophils % Lymphocytes % (Manual) Monocytes % (Manual) Metamyelocytes % Neutrophils # (Manual) Band Neutrophils # Lymphocytes # (Manual) Monocytes # (Manual) Metamyelocytes # Poikilocytosis Anisocytosis Tear Drop Cells Ovalocytes RBC Morph Comment Turbidity Sodium Potassium Chloride Carbon Dioxide Anion Gap BUN Creatinine GFR Calculation BUN/Creatinine Ratio Glucose Glucometer 146 Calculated Osmolality Calcium Phosphorus Magnesium Icterus Index Troponin I 0.042 Albumin Specimen Hemolysis < 15 Stool Occult Blood Crossmatch ([facility]) 08/04/17 08/05/17 08/05/17 20:32 06:08 10:51 WBC 10.4 RBC 3.01 L Hgb 9.0 L Hct 27.7 L MCV 92.0 MCH 29.9 MCHC 32.5 RDW Std Deviation 56.5 H Plt Count 111 L MPV 10.9 Immature Gran % (Auto) Not performed Neut % (Auto) Not performed Lymph % (Auto) Not performed Lares % (Auto) Not performed Eos % (Auto) Not performed Baso % (Auto) Not performed Neut # (Auto) Not performed Lymph # (Auto) Not performed Lares # (Auto) Not performed Eos # (Auto) Not performed Baso # (Auto) Not performed Abs Immat Gran (auto) Not performed Neutrophils % (Manual) 88.0 H Band Neutrophils % 2.0 Lymphocytes % (Manual) 4.0 L Monocytes % (Manual) 5.0 Metamyelocytes % 1.0 H Neutrophils # (Manual) 9.2 H Band Neutrophils # 0.2 Lymphocytes # (Manual) 0.4 L Monocytes # (Manual) 0.5 Metamyelocytes # 0.1 Poikilocytosis 1+ Anisocytosis 1+ Tear Drop Cells 1+ Ovalocytes 1+ RBC Morph Comment Abnormal Turbidity Sodium Potassium Chloride Carbon Dioxide Anion Gap BUN Creatinine GFR Calculation BUN/Creatinine Ratio Glucose Glucometer 248 199 Calculated Osmolality Calcium Phosphorus Magnesium Icterus Index Troponin I Albumin Specimen Hemolysis Stool Occult Blood Crossmatch ([facility]) 08/05/17 08/05/17 08/05/17 10:51 10:57 14:25 WBC RBC Hgb Hct MCV MCH MCHC RDW Std Deviation Plt Count MPV Immature Gran % (Auto) Neut % (Auto) Lymph % (Auto) Lares % (Auto) Eos % (Auto) Baso % (Auto) Neut # (Auto) Lymph # (Auto) Lares # (Auto) Eos # (Auto) Baso # (Auto) Abs Immat Gran (auto) Neutrophils % (Manual) Band Neutrophils % Lymphocytes % (Manual) Monocytes % (Manual) Metamyelocytes % Neutrophils # (Manual) Band Neutrophils # Lymphocytes # (Manual) Monocytes # (Manual) Metamyelocytes # Poikilocytosis Anisocytosis Tear Drop Cells Ovalocytes RBC Morph Comment Turbidity < 20 Sodium 144 Potassium 3.5 L D Chloride 104 Carbon Dioxide 24 Anion Gap 16 H BUN 49.0 H Creatinine 2.4 H D GFR Calculation 27 BUN/Creatinine Ratio 20 Glucose 269 H Glucometer 308 187 Calculated Osmolality 299 H Calcium 7.7 L D Phosphorus Magnesium Icterus Index < 2 Troponin I Albumin Specimen Hemolysis < 15 Stool Occult Blood Crossmatch ([facility]) 08/05/17 08/06/17 08/06/17 20:07 04:36 04:36 WBC 11.0 RBC 2.88 L Hgb 8.5 L Hct 26.5 L MCV 92.0 MCH 29.5 MCHC 32.1 RDW Std Deviation 54.5 H Plt Count 112 L MPV 10.7 Immature Gran % (Auto) Neut % (Auto) Lymph % (Auto) Lares % (Auto) Eos % (Auto) Baso % (Auto) Neut # (Auto) Lymph # (Auto) Lares # (Auto) Eos # (Auto) Baso # (Auto) Abs Immat Gran (auto) Neutrophils % (Manual) 93.0 H Band Neutrophils % Lymphocytes % (Manual) 7.0 L Monocytes % (Manual) Metamyelocytes % Neutrophils # (Manual) 10.2 H Band Neutrophils # Lymphocytes # (Manual) 0.8 L Monocytes # (Manual) Metamyelocytes # Poikilocytosis 1+ Anisocytosis 1+ Tear Drop Cells Ovalocytes RBC Morph Comment Abnormal Turbidity < 20 Sodium 141 Potassium 4.0 Chloride 106 Carbon Dioxide 27 Anion Gap 8 BUN 46.0 H Creatinine 2.4 H GFR Calculation 27 BUN/Creatinine Ratio 19 Glucose 176 H Glucometer 211 Calculated Osmolality 287 H Calcium 7.1 L Phosphorus 2.8 Magnesium 2.0 Icterus Index < 2 Troponin I Albumin 3.1 L Specimen Hemolysis < 15 Stool Occult Blood Crossmatch ([facility]) 08/06/17 08/06/17 08/06/17 06:04 10:52 13:38 WBC RBC Hgb Hct MCV MCH MCHC RDW Std Deviation Plt Count MPV Immature Gran % (Auto) Neut % (Auto) Lymph % (Auto) Lares % (Auto) Eos % (Auto) Baso % (Auto) Neut # (Auto) Lymph # (Auto) Lares # (Auto) Eos # (Auto) Baso # (Auto) Abs Immat Gran (auto) Neutrophils % (Manual) Band Neutrophils % Lymphocytes % (Manual) Monocytes % (Manual) Metamyelocytes % Neutrophils # (Manual) Band Neutrophils # Lymphocytes # (Manual) Monocytes # (Manual) Metamyelocytes # Poikilocytosis Anisocytosis Tear Drop Cells Ovalocytes RBC Morph Comment Turbidity Sodium Potassium Chloride Carbon Dioxide Anion Gap BUN Creatinine GFR Calculation BUN/Creatinine Ratio Glucose Glucometer 201 173 180 Calculated Osmolality Calcium Phosphorus Magnesium Icterus Index Troponin I Albumin Specimen Hemolysis Stool Occult Blood Crossmatch ([facility]) Assessment and Plan - Assessment and Plan Acute Hypoxic Respiratory Failure Asthma exacerbation Influenza A NORRIS Sepsis Plan: Pt currently on RA and tolerating. Cont on BT's A/A q4hr and pulmicort BID. On solumedrol 80mg q6hr, cefepime for psa pna. CXR without acute infiltrates noted. Cont to encourage cough and acapella, follow closely. - Time Spent With Patient Total time spent is greater than 50% in coordination of care (as documented) at patient's floor/unit and/or counseling patient: less than 15 minutes
--- NOTE | 2017-08-06 17:30 | Progress Note ---
- Date 08/06/17 Subjective: F/U: Asthma exacerbation, Influenza type B (POA), Pneumonia, Severe sepsis Having a better day. Feels breathing improving-not as short and labored as prior days. Still cough, not mobilizing sputum. Appetite still decreased, but eating more. No nausea or ab pain. Not feeling abdominal pain or bloating. Urine has been slow. Increases residuals on bladder scan. Strength slowly returning. Objective Vital signs: Temperature 97.6 F 08/06/17 15:04 Pulse Rate 83 08/06/17 15:56 Respiratory Rate 18 08/06/17 15:26 Blood Pressure 143/74 H 08/06/17 15:04 Pulse Oximetry 97 08/06/17 15:26 Height/Weight/BMI: Height 1.68 m Weight 64.8 kg Body Mass Index 21.6 - Constitutional Present: well nourished, well developed, average body habitus, cooperative - Routine HEENT Exam Head: Present: normocephalic, atraumatic Eye: Present: EOMI, PERRL ENT: Present: mucous membranes moist - Routine Respiratory Exam Present: decreased breath sounds, prolonged expiratory phase, wheezes, distant breath sounds, diminished air movement. Absent: respiratory distress (Less tachypnea than previous days, able to take better breaths) - Routine Cardiovascular Exam Present: RRR, no murmur - Routine Abdominal Exam Present: soft, non distended, non tender. Absent: normoactive bowel sounds ( Decreased, but present), guarding - Routine Extremities Exam Present: pulses intact. Absent: cyanosis, clubbing - Routine Musculoskeletal Exam Musculoskeletal: Present: no clubbing or cyanosis - Routine Skin Exam Present: warm. Absent: dry (Moist) - Routine Neurological Exam Present: alert, oriented X3, CN II-XII intact, moving all extremities, vision grossly intact, hearing grossly intact, normal speech. Absent: motor deficit, altered mental status - Routine Psychiatric Exam Present: normal affect, normal thought process, cooperative, anxious (Mild) Results - Labs CBC & Chem 7: 08/06/17 04:36 08/06/17 04:36 Microbiology Results: Microbiology 08/03/17 13:16 Port/Picc Blood Culture - Preliminary No Growth After 3 Days 08/03/17 13:11 Port/Picc Blood Culture - Preliminary No Growth After 3 Days 08/03/17 13:42 Sputum, Expectorated Gram Stain - Final 08/03/17 13:42 Sputum, Expectorated Sputum Culture - Final Assessment and Plan (1) Asthma with exacerbation Current visit: Yes Status: Acute Assessment and Plan: IMPRESSION Asthma exacerbation Influenza type B (POA) Severe sepsis Pneumonia (diagnosed on CT) with Pseudomonas aeruginosa in sputum Acute kidney injury on chronic kidney disease -slightly improved. (Renal ultrasound without hydronephrosis) Hyperkalemia (POA)-resolved Chest pain-with normal initial troponin and EKG Anemia of chronic disease with slow decrease in hemoglobin, was 9.9 on admission and 7.9 on 08/04/2017 . Hemoccult stool negative Acute debility, weakness Thrombocytopenia Immunocompromised secondary to Multiple Myeloma, diagnosed Oct, 2013, on chemotherapy, s/p bone marrow transplant HTN CKD stage IV Urinary retention - Quintanilla placed 08/06 and bladder retraining started OA Chronic pain, narcotic dependent PLAN Continue with cefepime for antimicrobial coverage. Decrease Solu-Medrol to 62.5mg IV q 12 hours. Continue Neb treatments. Quintanilla placed due to urinary retention. Will start Flomax 0.4mg nightly (in addition to his Cardura) and initiate bladder retraining. Can discontinue Protonix. Encourage ambulation to help strength. Recheck CMP in am due to medication use and stage IV CKD. Recheck CBC in am secondary to pneumonia. DVT Prophylaxis: SCD's Resuscitation Status: Full Code - Time spent with patient Time with patient PN: 25 minutes - Physician Narrative Physician: Juan José Bernal MD Narrative: Date: 08/06/17 Time: 1726 Hospital Course Summary Disclaimer: The visit summary below is not to be considered part of the above Progress Note. Hospital Course: 08/01/17 Admit, observation status, under the hospitalist service. Asthma exacerbation: DuoNeb QID + Xopenex PRN; Solu-Medrol 125 mg Q6h IV -- dc ADELINA d/t immunocompromised state. Check viral respiratory panel. Ativan PRN anxiety/air hunger. Hyperkalemia: IVF. Debility/weakness: Consult PT/OT. Check orthostatics. CKD stage IV: unsure of baseline creatinine. IVF for hydration, recheck in am. Chronic pain: continue home pain meds. Multiple Myeloma: consult Dr. Mcghee. Advanced directives: Sister Светлана is DPOA; would want an attempt at resuscitation. Not interested in discussing end-of-life per sister, who has noted a significant functional decline over the last year. Influenza type A - Tamiflu 75mg BID for treatment 08/02/17 Continue Tamiflu for influenza. Continue IV steroids and breathing treatments - still with wheezing, poor air exchange, and conversational dyspnea. Repeat CXR negative for pneumonia. Sputum positive for pseudomonas - d/w Dr. Meyer - w/o fever or infiltrate on CXR it's most likely colonization. Hyperkalemia increased to 5.9 - IV Lasix given. Repeat BMP in am. Dr. Mcghee recommends IVIG. Hgb decreased from 9.9 to 8.5; platelets also down to 121. Recheck in am. PT eval: they recommend IP PT and home with home health. 08/03/2017 Continue Tamiflu for influenza. Dose decreased due to renal function. Continue IV steroids and breathing treatments - still with wheezing, poor air exchange, and conversational dyspnea. Sputum positive for pseudomonas Consulted Dr. Kerr today regarding asthma exacerbation and positive sputum with Pseudomonas. May need antibiotics. Consider CT chest without contrast if patient able to lie flat. Check EKG and troponin regarding chest pain. (EKG showed normal sinus rhythm) Discussed the patient's chronic kidney disease with worsening creatinine and elevated calcium with Dr. Carl and he recommended D5W with 3 A of bicarbonate to run at 125 an hour and Lasix 1. We'll recheck basic metabolic profile later today. If potassium is not improving he will need transfer to [facility] for possible dialysis. He suspects his increased creatinine may be due to ATN caused by his recent influenza illness. We'll check Hemoccults and monitor hemoglobin regarding drop in hemoglobin and increase in BUN. Will start Protonix IV. Change to inpatient status secondary to acute kidney injury with hyperkalemia Lactate was obtained and was 3.6. Will give a bolus IV fluid if chest x-ray shows no pulmonary edema. No pulmonary edema on my read. Give 1 L normal saline bolus over 2 hours. Will start cefepime, Vancomycin, Levaquin. Obtain blood cultures 2. 400 of urine was noted on post void bladder scan. Renal ultrasound is pending. 08/04/17 Continue Tamiflu for influenza. Dose decreased due to renal function. Continue IV steroids and breathing treatments - still with wheezing, poor air exchange, dyspnea slightly improved today. Started on vancomycin, cefepime, Levaquin yesterday for severe sepsis/ pneumonia. Blood cultures are pending. Can likely adjust antibiotics for treatment of Pseudomonas pneumonia. ReCheck EKG (this morning's EKG shows normal sinus rhythm) and serial troponin now regarding chest pain. (EKG yesterday showed normal sinus rhythm with normal troponins) Chest x-ray today We'll discuss if transfusion needed with the patient's oncologist Dr. Mcghee Discussed with service desk analyst, Dr. Carl and he recommends discontinuation of D5 with bicarbonate and initiating normal saline. 08/05/17 Influenza- Tamiflu completed. Supportive care. Wean steroids down. Continue nebulized medication. Pseudomonal PNA- Continue cefepime. Can discontinue vancomycin. NORRIS/CKD- Follows with Dr. Carl. Hyperkalemia resolved. SCr baseline appears to be around 2.0. Serum osmo remains elevated. Increase IVF to 125ml/hr overnoc. Continue Cardura for now. Anemia, multifactorial- monitor labs. Multiple myeloma- on chemotherapy, s/p BMTx. Per Dr. Mcghee. Continue pain medications per home routine. 08/06/17 Continue with cefepime for antimicrobial coverage. Decrease Solu-Medrol to 62.5mg IV q 12 hours. Continue Neb treatments. Quintanilla placed due to urinary retention. Will start Flomax 0.4mg nightly (in addition to his Cardura) and initiate bladder retraining. Can discontinue Protonix. Encourage ambulation to help strength.
[2017-08-06] MEDS: GABAPENTIN 300 MG CAPSULE PO SCH (21:48)
[2017-08-06] MEDS: TAMSULOSIN 0.4 MG CAPSULE PO SCH (21:48)
[2017-08-07] MEDS: CEFEPIME 1 GM in NS 50 ML IV SCH ×2 (01:09→14:31)
[2017-08-07] MEDS: METHYLPREDNISOLONE SOD SUCC 125mg/2ml INJECTION IVP SCH ×3 (03:01→17:38)
[2017-08-07] MEDS: HYDROCODONE/APAP 10 MG/325 MG TABLET PO PRN ×4 (04:38→21:14)
[2017-08-07] MEDS: MORPHINE SULFATE 2mg INJ IVP PRN ×4 (04:38→21:15)
[2017-08-07] MEDS: ALBUTEROL/IPRATROPIUM 2.5mg-0.5mg/3ml NEB AEROSOL SCH ×6 (04:47→23:21)
[2017-08-07] MEDS: INSULIN ASPART 100unit/ml INJECTION SQ PRN ×4 (05:59→21:18)
[2017-08-07] MEDS: NS 1,000 ML IV SCH ×2 (07:50→16:24)
[2017-08-07] MEDS: BUDESONIDE INH.SOLN 0.5mg/2ml NEB AEROSOL SCH ×2 (08:19→19:23)
[2017-08-07] MEDS: NYSTATIN 500,000 units/5 ml ORAL LIQUID PO SCH ×4 (10:07→21:16)
[2017-08-07] MEDS: ALPRAZolam 0.5 MG TABLET PO PRN ×2 (10:08→21:14)
[2017-08-07] MEDS: AMLODIPINE 5 MG TABLET PO SCH (10:08)
[2017-08-07] MEDS: ASPIRIN *EC* 81 MG TABLET PO SCH (10:08)
[2017-08-07] MEDS: DOXAZOSIN 4 MG TABLET PO SCH ×2 (10:09→21:15)
--- NOTE | 2017-08-07 11:32 | Pulmonology Progress Note ---
Subjective Principal diagnosis: SOB Interval history: Pt currently in bed, states breathing is ok, feels a little more SOB today. + cough with some sputum noted. Exam Vital signs: Temperature 96.9 F 08/07/17 08:00 Pulse Rate 97 08/07/17 08:00 Respiratory Rate 16 08/07/17 08:20 Blood Pressure 143/79 H 08/07/17 08:00 Pulse Oximetry 95 08/07/17 08:20 Inpatient Medications: Generic Name Dose Route Start Last Admin Trade Name Freq PRN Reason Stop Dose Admin Hydrocodone Bitart/Acetaminophen 1 - 2 tab 08/01/17 14:30 08/07/17 10:07 [place] 10/325 PO 2 tab Q4H PRN Administration Pain Albuterol/Ipratropium 3 ml 08/04/17 12:00 08/07/17 11:25 Duoneb AEROSOL 3 ml Q4HR RADHA Administration Alprazolam 0.5 mg 08/01/17 10:47 08/07/17 10:08 Xanax PO 0.5 mg BID PRN Administration Anxiety Amlodipine Besylate 5 mg 08/02/17 09:00 08/07/17 10:08 Norvasc PO 5 mg DAILY RADHA Administration Aspirin 81 mg 08/02/17 09:00 08/07/17 10:08 Ecotrin PO 81 mg DAILY RADHA Administration Budesonide 0.5 mg 08/04/17 11:44 08/07/17 08:19 Pulmicort Inhalation AEROSOL 0.5 mg RTBID RADHA Administration Dextrose 20 ml 08/04/17 08:10 D50%W IVP PRN PRN Hypoglycemia Doxazosin Mesylate 4 mg 08/01/17 21:00 08/07/17 10:09 Cardura PO 4 mg BID RADHA Administration Fentanyl 25 mcg 08/04/17 10:47 08/07/17 10:10 Duragesic Patch TD 25 mcg Q72H RADHA Administration Fentanyl Citrate 1 removal 08/04/17 11:00 08/07/17 10:21 Duragesic Patch Removal TD 1 removal Q3D RADHA Administration Gabapentin 300 mg 08/01/17 21:00 08/06/17 21:48 Neurontin PO 300 mg HS RADHA Administration Glucose 37.5 gm 08/04/17 08:10 Glutose 15 PO PRN PRN Hypoglycemia Hydromorphone HCl 2 mg 08/01/17 10:47 Dilaudid PO Q4H PRN Pain Cefepime HCl 1 gm/ Sodium 50 mls @ 200 mls/hr 08/03/17 14:00 08/07/17 01:30 Chloride IV Infused Q12H RADHA Infusion Sodium Chloride 1,000 mls @ 125 mls/hr 08/04/17 08:30 08/07/17 07:50 Normal Saline IV 125 mls/hr .Q8H RADHA Administration Insulin Aspart 1 - 5 unit 08/04/17 08:10 08/07/17 11:14 Novolog SQ 2 unit SS PRN Administration Hyperglycemia Protocol Levalbuterol HCl 1.25 mg 08/01/17 10:47 08/03/17 08:53 Xopenex 1.25mg/3ml AEROSOL 1.25 mg Q4HR PRN Administration Shortness of air Lorazepam 0.5 mg 08/01/17 10:47 08/07/17 04:52 Ativan Inj IVP 0.5 mg Q4H PRN Administration Anxiety/Air hunger/Agitation Menthol 1 lozenge 08/01/17 10:47 Ricola Sf MM PRN PRN Cough Methylprednisolone Sodium Succinate 80 mg 08/05/17 16:34 08/07/17 10:10 Solu-Medrol IVP 80 mg Q6HR RADHA Administration Morphine Sulfate 2 mg 08/01/17 10:47 08/07/17 10:14 Morphine Sulfate Inj IVP 2 mg Q2HR PRN Administration Pain /Air hunger Nystatin 5 ml 08/01/17 13:00 08/07/17 10:07 Mycostatin PO 5 ml QID RADHA Administration Oxycodone HCl 20 mg 08/01/17 10:47 Oxycontin PO Q12H PRN Pain Oxycodone HCl 5 mg 08/01/17 10:47 Roxicodone *Ir* PO Q6H PRN Pain Promethazine HCl/Codeine 5 ml 08/01/17 10:47 Phenergan + Codeine PO Q6HR PRN Cough Sodium Chloride 10 - 80 ml 08/01/17 08:39 08/06/17 21:23 Iv Flush IVF 10 ml PRN PRN Administration Flushing Sodium Chloride 500 ml 08/04/17 10:48 Normal Saline IV PRN PRN Tamsulosin HCl 0.4 mg 08/06/17 21:00 08/06/17 21:48 Flomax PO 0.4 mg HS RADHA Administration Discontinued Medications Generic Name Dose Route Start Last Admin Trade Name Freq PRN Reason Stop Dose Admin Acetaminophen 650 mg 08/04/17 10:49 08/04/17 12:46 Tylenol PO 08/04/17 10:50 650 mg O ONE Administration Hydrocodone Bitart/Acetaminophen 1 tab 08/01/17 10:47 08/01/17 11:53 [place] 10/325 PO 1 tab Q4H PRN Administration Pain Albuterol/Ipratropium 3 ml 08/01/17 08:38 08/01/17 08:53 Duoneb AEROSOL 08/01/17 08:39 3 ml O ONE Administration Albuterol/Ipratropium 3 ml 08/01/17 08:45 08/01/17 09:00 Duoneb AEROSOL 08/01/17 08:46 3 ml O ONE Administration Albuterol/Ipratropium 3 ml 08/01/17 11:00 08/04/17 05:08 Duoneb AEROSOL 3 ml RTQID RADHA Administration Diphenhydramine HCl 25 mg 08/04/17 10:48 08/04/17 12:46 Benadryl PO 08/04/17 10:49 25 mg ONCE ONE Administration Furosemide 20 mg 08/02/17 11:05 08/02/17 12:09 Lasix IVP 08/02/17 11:06 20 mg O ONE Administration Furosemide 80 mg 08/03/17 11:23 08/03/17 13:01 Lasix IVP 08/03/17 11:24 Not Given ONCE ONE Furosemide 80 mg 08/03/17 16:30 08/03/17 16:49 Lasix IVP 08/03/17 16:31 80 mg O ONE Administration Sodium Chloride 1,000 mls @ 75 mls/hr 08/01/17 10:47 08/03/17 13:00 1/2 Normal Saline IV Infused .[id number] RADHA Infusion Immune Globulin 25 g/ Sodium 250 mls @ 25 mls/hr 08/02/17 13:00 08/02/17 17: 28 Chloride IV 08/02/17 22:59 Infused O ONE Infusion Sodium Bicarbonate 150 meq/ 1,150 mls @ 125 mls/hr 08/03/17 11:30 08/03/17 16 :10 Dextrose IV Not Given .Q9H12M RADHA Cefepime HCl 2 gm/ Sodium 100 mls @ 200 mls/hr 08/03/17 12:30 08/03/17 17:17 Chloride IV Not Given Q24H RADHA Levofloxacin/Dextrose 750 mg in 150 mls @ 100 mls/hr 08/03/17 12:30 08/03/17 17:17 Levaquin Premix IV Not Given Q72H RADHA Sodium Chloride 1,000 mls @ 500 mls/hr 08/03/17 12:33 08/03/17 15:01 Normal Saline IV 08/03/17 14:32 Infused .Q2H ONE Infusion Levofloxacin/Dextrose 500 mg in 100 mls @ 100 mls/hr 08/03/17 13:00 08/03/17 17:18 Levaquin Premix IV 08/03/17 13:59 Infused O ONE Infusion Levofloxacin/Dextrose 250 mg in 50 mls @ 100 mls/hr 08/04/17 13:00 Levaquin Premix IV Q24H RADHA Vancomycin HCl 1,000 mg/ 250 mls @ 250 mls/hr 08/03/17 18:00 08/05/17 07:07 Sodium Chloride IV Infused Q36H RADHA Infusion Sodium Bicarbonate 150 meq/ 1,000 mls @ 125 mls/hr 08/03/17 20:15 08/04/17 02 :49 Dextrose IV 08/04/17 05:15 125 mls/hr .Q8H RADHA Infusion Sodium Bicarbonate 150 meq/ 1,150 mls @ 125 mls/hr 08/03/17 21:00 08/05/17 12 :38 Dextrose IV Not Given .Q9H12M RADHA Levalbuterol HCl 1.25 mg 08/01/17 09:35 08/01/17 09:52 Xopenex 1.25mg/3ml AEROSOL 08/01/17 09:36 1.25 mg O ONE Administration Lidocaine HCl 20 ml 08/06/17 14:00 08/06/17 14:32 Urojet MM 08/06/17 14:01 20 ml O ONE Administration Methylprednisolone Sodium Succinate 125 mg 08/01/17 08:41 08/01/17 08:46 Solu-Medrol IVP 08/01/17 08:42 125 mg O ONE Administration Methylprednisolone Sodium Succinate 125 mg 08/01/17 15:00 08/05/17 14:41 Solu-Medrol IVP 125 mg Q6HR RADHA Administration Miscellaneous Medication 1 each 08/03/17 12:27 08/03/17 17:17 Pharmacy Consult - Renal Dosing 08/03/17 12:28 Not Given O ONE Oseltamivir Phosphate 75 mg 08/01/17 21:00 08/02/17 09:05 Tamiflu PO 08/06/17 09:01 75 mg BID RADHA Administration Oseltamivir Phosphate 30 mg 08/03/17 09:00 08/05/17 09:30 Tamiflu PO 08/05/17 09:01 30 mg DAILY RADHA Administration Pantoprazole Sodium 40 mg 08/03/17 11:27 08/06/17 08:45 Protonix Iv IVP 40 mg BID RADHA Administration Pharmacy Consult 1 each 08/01/17 11:10 Pharmacy Consult - Fall Risk XX 08/01/17 11:11 ONE TIME ONE Sodium Chloride 500 ml 08/04/17 08:05 Normal Saline IV PRN PRN Vancomycin HCl 1 each 08/03/17 12:26 08/05/17 09:46 Pharmacy Consult - Vancomycin 08/03/17 12:27 Not Given O ONE - Constitutional no acute distress, average body habitus, cooperative - Routine HEENT Exam Head: Present: normocephalic, atraumatic Eye: Present: EOMI, PERRL ENT: Present: mucous membranes moist - Routine Neck Exam Present: supple, full ROM, trachea midline - Routine Respiratory Exam Present: wheezes. Absent: accessory muscle use, patient mechanically ventilated Comments: wheezes are more upper respiratory - Routine Cardiovascular Exam Present: RRR, S1, S2, no murmur - Routine Abdominal Exam Present: soft, normoactive bowel sounds - Routine Extremities Exam Present: no edema, non tender, full ROM - Routine Back/Spine/Pelvis Exam Back/Spine: Present: full ROM - Routine Skin Exam Present: intact, dry - Routine Neurological Exam Present: alert, oriented X3, CN II-XII intact - Routine Psychiatric Exam Present: normal affect, normal thought process - Urinary Catheter Management Straight Cath placed during this visit: yes, but has since been removed by the nurse Insertion date: 08/06/17 Insertion time: 14:59 Removal date: 08/01/17 Removal time: 20:28 Results - Laboratory Findings Laboratory: Laboratory Results - last 48 hr 08/04/17 08/05/17 08/05/17 07:40 10:51 10:57 WBC 10.4 RBC 3.01 L Hgb 9.0 L Hct 27.7 L MCV 92.0 MCH 29.9 MCHC 32.5 RDW Std Deviation 56.5 H Plt Count 111 L MPV 10.9 Immature Gran % (Auto) Not performed Neut % (Auto) Not performed Lymph % (Auto) Not performed [place] % (Auto) Not performed Eos % (Auto) Not performed Baso % (Auto) Not performed Neut # (Auto) Not performed Lymph # (Auto) Not performed [place] # (Auto) Not performed Eos # (Auto) Not performed Baso # (Auto) Not performed Abs Immat Gran (auto) Not performed Neutrophils % (Manual) 88.0 H Band Neutrophils % 2.0 Lymphocytes % (Manual) 4.0 L Monocytes % (Manual) 5.0 Metamyelocytes % 1.0 H Neutrophils # (Manual) 9.2 H Band Neutrophils # 0.2 Lymphocytes # (Manual) 0.4 L Monocytes # (Manual) 0.5 Metamyelocytes # 0.1 Poikilocytosis 1+ Anisocytosis 1+ Tear Drop Cells 1+ Ovalocytes 1+ Schistocytes RBC Morph Comment Abnormal Turbidity Sodium Potassium Chloride Carbon Dioxide Anion Gap BUN Creatinine GFR Calculation BUN/Creatinine Ratio Glucose Glucometer 308 Calculated Osmolality Calcium Phosphorus Magnesium Iron 58 TIBC 268 % Saturation 22 Total Bilirubin Icterus Index AST ALT Alkaline Phosphatase Total Protein Albumin Globulin Albumin/Globulin Ratio Vitamin B12 507 Folate 12.3 Specimen Hemolysis 08/05/17 08/05/17 08/06/17 14:25 20:07 04:36 WBC 11.0 RBC 2.88 L Hgb 8.5 L Hct 26.5 L MCV 92.0 MCH 29.5 MCHC 32.1 RDW Std Deviation 54.5 H Plt Count 112 L MPV 10.7 Immature Gran % (Auto) Neut % (Auto) Lymph % (Auto) [place] % (Auto) Eos % (Auto) Baso % (Auto) Neut # (Auto) Lymph # (Auto) [place] # (Auto) Eos # (Auto) Baso # (Auto) Abs Immat Gran (auto) Neutrophils % (Manual) 93.0 H Band Neutrophils % Lymphocytes % (Manual) 7.0 L Monocytes % (Manual) Metamyelocytes % Neutrophils # (Manual) 10.2 H Band Neutrophils # Lymphocytes # (Manual) 0.8 L Monocytes # (Manual) Metamyelocytes # Poikilocytosis 1+ Anisocytosis 1+ Tear Drop Cells Ovalocytes Schistocytes RBC Morph Comment Abnormal Turbidity Sodium Potassium Chloride Carbon Dioxide Anion Gap BUN Creatinine GFR Calculation BUN/Creatinine Ratio Glucose Glucometer 187 211 Calculated Osmolality Calcium Phosphorus Magnesium Iron TIBC % Saturation Total Bilirubin Icterus Index AST ALT Alkaline Phosphatase Total Protein Albumin Globulin Albumin/Globulin Ratio Vitamin B12 Folate Specimen Hemolysis 08/06/17 08/06/17 08/06/17 04:36 06:04 10:52 WBC RBC Hgb Hct MCV MCH MCHC RDW Std Deviation Plt Count MPV Immature Gran % (Auto) Neut % (Auto) Lymph % (Auto) [place] % (Auto) Eos % (Auto) Baso % (Auto) Neut # (Auto) Lymph # (Auto) [place] # (Auto) Eos # (Auto) Baso # (Auto) Abs Immat Gran (auto) Neutrophils % (Manual) Band Neutrophils % Lymphocytes % (Manual) Monocytes % (Manual) Metamyelocytes % Neutrophils # (Manual) Band Neutrophils # Lymphocytes # (Manual) Monocytes # (Manual) Metamyelocytes # Poikilocytosis Anisocytosis Tear Drop Cells Ovalocytes Schistocytes RBC Morph Comment Turbidity < 20 Sodium 141 Potassium 4.0 Chloride 106 Carbon Dioxide 27 Anion Gap 8 BUN 46.0 H Creatinine 2.4 H GFR Calculation 27 BUN/Creatinine Ratio 19 Glucose 176 H Glucometer 201 173 Calculated Osmolality 287 H Calcium 7.1 L Phosphorus 2.8 Magnesium 2.0 Iron TIBC % Saturation Total Bilirubin Icterus Index < 2 AST ALT Alkaline Phosphatase Total Protein Albumin 3.1 L Globulin Albumin/Globulin Ratio Vitamin B12 Folate Specimen Hemolysis < 15 08/06/17 08/06/17 08/07/17 13:38 20:24 04:33 WBC 9.7 RBC 2.88 L Hgb 8.5 L Hct 26.6 L MCV 92.4 MCH 29.5 MCHC 32.0 RDW Std Deviation 52.5 H Plt Count 111 L MPV 11.0 Immature Gran % (Auto) Not performed Neut % (Auto) Not performed Lymph % (Auto) Not performed [place] % (Auto) Not performed Eos % (Auto) Not performed Baso % (Auto) Not performed Neut # (Auto) Not performed Lymph # (Auto) Not performed [place] # (Auto) Not performed Eos # (Auto) Not performed Baso # (Auto) Not performed Abs Immat Gran (auto) Not performed Neutrophils % (Manual) 91.0 H Band Neutrophils % 1.0 Lymphocytes % (Manual) 4.0 L Monocytes % (Manual) 3.0 Metamyelocytes % 1.0 H Neutrophils # (Manual) 8.8 H Band Neutrophils # 0.1 Lymphocytes # (Manual) 0.4 L Monocytes # (Manual) 0.3 Metamyelocytes # 0.1 Poikilocytosis 2+ Anisocytosis 1+ Tear Drop Cells 1+ Ovalocytes 1+ Schistocytes 1+ RBC Morph Comment Abnormal Turbidity Sodium Potassium Chloride Carbon Dioxide Anion Gap BUN Creatinine GFR Calculation BUN/Creatinine Ratio Glucose Glucometer 180 276 Calculated Osmolality Calcium Phosphorus Magnesium Iron TIBC % Saturation Total Bilirubin Icterus Index AST ALT Alkaline Phosphatase Total Protein Albumin Globulin Albumin/Globulin Ratio Vitamin B12 Folate Specimen Hemolysis 08/07/17 08/07/17 08/07/17 04:33 05:58 11:04 WBC RBC Hgb Hct MCV MCH MCHC RDW Std Deviation Plt Count MPV Immature Gran % (Auto) Neut % (Auto) Lymph % (Auto) [place] % (Auto) Eos % (Auto) Baso % (Auto) Neut # (Auto) Lymph # (Auto) [place] # (Auto) Eos # (Auto) Baso # (Auto) Abs Immat Gran (auto) Neutrophils % (Manual) Band Neutrophils % Lymphocytes % (Manual) Monocytes % (Manual) Metamyelocytes % Neutrophils # (Manual) Band Neutrophils # Lymphocytes # (Manual) Monocytes # (Manual) Metamyelocytes # Poikilocytosis Anisocytosis Tear Drop Cells Ovalocytes Schistocytes RBC Morph Comment Turbidity < 20 Sodium 145 H Potassium 4.3 Chloride 111 H Carbon Dioxide 25 Anion Gap 9 BUN 50.0 H Creatinine 2.5 H GFR Calculation 25 BUN/Creatinine Ratio 20 Glucose 164 H Glucometer 193 212 Calculated Osmolality 296 H Calcium 6.8 L Phosphorus Magnesium Iron TIBC % Saturation Total Bilirubin 0.20 Icterus Index < 2 AST 50 ALT 85 H Alkaline Phosphatase 86 Total Protein 5.5 L Albumin 3.0 L Globulin 2.5 Albumin/Globulin Ratio 1.2 Vitamin B12 Folate Specimen Hemolysis < 15 Assessment and Plan - Assessment and Plan Acute Hypoxic Respiratory Failure Asthma exacerbation Influenza A NORRIS Sepsis Plan: Pt currently on RA and tolerating. Cont on BT's A/A q4hr and pulmicort BID. On solumedrol 80mg q6hr, wean to q8, cefepime for psa pna. Cont to encourage cough and acapella, follow closely. Upper airway wheezing noted, no tracheomalacia noted on CT chest, possible reflux start PPI as he is on steroids. follow. - Time Spent With Patient Total time spent is greater than 50% in coordination of care (as documented) at patient's floor/unit and/or counseling patient: less than 15 minutes
[2017-08-07 14:59] VITALS: BMI 24.3
--- NOTE | 2017-08-07 15:35 | Progress Note ---
- Date 08/07/17 Subjective: Nacho states that he feels better. He still has some wheezing but he doesn't feel short of breath (however he becomes winded after speaking a sentence). He states that his appetite is starting to improve, and he frequently feels full. The Quintanilla hasn't been bothering him. Objective Vital signs: Temperature 96.9 F 08/07/17 08:00 Pulse Rate 96 08/07/17 08:00 Respiratory Rate 20 08/07/17 11:26 Blood Pressure 143/79 H 08/07/17 08:00 Pulse Oximetry 95 08/07/17 11:29 Height/Weight/BMI: Height 1.68 m Weight 68.4 kg Body Mass Index 24.3 - Constitutional Present: well nourished, well developed - Routine HEENT Exam Head: Present: normocephalic Eye: Absent: conjunctival icterus, scleral injection ENT: Present: mucous membranes dry - Routine Respiratory Exam Present: decreased breath sounds, wheezes - Routine Cardiovascular Exam Present: RRR, S1, S2 - Routine Abdominal Exam Present: soft, normoactive bowel sounds, non distended, non tender - Routine Extremities Exam Present: no edema, pulses intact - Routine Musculoskeletal Exam Musculoskeletal: Present: no joint swelling - Routine Skin Exam Present: intact, dry, warm Comments: face is flushed - Routine Neurological Exam Present: alert, oriented X3 - Routine Psychiatric Exam Present: normal affect, normal thought process, cooperative Results - Labs CBC & Chem 7: 08/07/17 04:33 08/07/17 04:33 Microbiology Results: Microbiology 08/03/17 13:11 Port/Picc Blood Culture - Preliminary No Growth After 4 Days 08/03/17 13:16 Port/Picc Blood Culture - Preliminary No Growth After 4 Days 08/03/17 13:42 Sputum, Expectorated Gram Stain - Final 08/03/17 13:42 Sputum, Expectorated Sputum Culture - Final Assessment and Plan (1) Asthma with exacerbation Current visit: Yes Status: Acute Assessment and Plan: IMPRESSION Asthma exacerbation Influenza type B (POA) Severe sepsis Pneumonia (diagnosed on CT) with Pseudomonas aeruginosa in sputum Acute kidney injury on chronic kidney disease -slightly improved. (Renal ultrasound without hydronephrosis) Hyperkalemia (POA)-resolved Chest pain-with normal initial troponin and EKG Anemia of chronic disease with slow decrease in hemoglobin, was 9.9 on admission and 7.9 on 08/04/2017 . Hemoccult stool negative Acute debility, weakness Thrombocytopenia Immunocompromised secondary to Multiple Myeloma, diagnosed Oct, 2013, on chemotherapy, s/p bone marrow transplant HTN CKD stage IV Urinary retention - Quintanilla placed 08/06 and bladder retraining started OA Chronic pain, narcotic dependent PLAN Continue with cefepime for pseudomonal coverage. Pulmonology tapering Solu-Medrol. Recommend Omeprazole since on steroids. Continue bladder retraining. Decrease rate of IVF to 75 mL/hr. BUN 50 and cr 2.5. Weight trending up about 10 kg from admission. Start Senna Plus BID; MOM PRN. Hgb stable at 8.5; Platelets 111. WBC normal at 9.7. GI Prophylaxis: other Resuscitation Status: Full Code - Time spent with patient Time with patient PN: 25 minutes - Physician Narrative Physician: Juan José Bernal MD Narrative: Date: 08/07/17 Time: 1524 Have independently interviewed and examined pt. Chart reviewed. Case discussed with CM and my INVOICE MACHINE OPERATOR. Care plan developed with my supervision; agree with above. Feels like he is improving. Breathing easier-less congested and SOA. Still cough , but decreasing. Moving more. Strength returning. Appetite varies. Lungs: decreased bilaterally. Improving air movement. Less work of breathing. Less respiratory distress CV: regular MSE: awake alert Plan: Continue antibiotics. Pulm tapering down steroids. Continue Bladder retraining. Decrease IVF. Encourage activities. Monitor lab. Hospital Course Summary Disclaimer: The visit summary below is not to be considered part of the above Progress Note. Hospital Course: 08/01/17 Admit, observation status, under the hospitalist service. Asthma exacerbation: DuoNeb QID + Xopenex PRN; Solu-Medrol 125 mg Q6h IV -- dc ADELINA d/t immunocompromised state. Check viral respiratory panel. Ativan PRN anxiety/air hunger. Hyperkalemia: IVF. Debility/weakness: Consult PT/OT. Check orthostatics. CKD stage IV: unsure of baseline creatinine. IVF for hydration, recheck in am. Chronic pain: continue home pain meds. Multiple Myeloma: consult Dr. Mcghee. Advanced directives: Sister Светлана is DPOA; would want an attempt at resuscitation. Not interested in discussing end-of-life per sister, who has noted a significant functional decline over the last year. Influenza type A - Tamiflu 75mg BID for treatment 08/02/17 Continue Tamiflu for influenza. Continue IV steroids and breathing treatments - still with wheezing, poor air exchange, and conversational dyspnea. Repeat CXR negative for pneumonia. Sputum positive for pseudomonas - d/w Dr. Meyer - w/o fever or infiltrate on CXR it's most likely colonization. Hyperkalemia increased to 5.9 - IV Lasix given. Repeat BMP in am. Dr. Mcghee recommends IVIG. Hgb decreased from 9.9 to 8.5; platelets also down to 121. Recheck in am. PT eval: they recommend IP PT and home with home health. 08/03/2017 Continue Tamiflu for influenza. Dose decreased due to renal function. Continue IV steroids and breathing treatments - still with wheezing, poor air exchange, and conversational dyspnea. Sputum positive for pseudomonas Consulted Dr. Kerr today regarding asthma exacerbation and positive sputum with Pseudomonas. May need antibiotics. Consider CT chest without contrast if patient able to lie flat. Check EKG and troponin regarding chest pain. (EKG showed normal sinus rhythm) Discussed the patient's chronic kidney disease with worsening creatinine and elevated calcium with Dr. Carl and he recommended D5W with 3 A of bicarbonate to run at 125 an hour and Lasix 1. We'll recheck basic metabolic profile later today. If potassium is not improving he will need transfer to [facility] for possible dialysis. He suspects his increased creatinine may be due to ATN caused by his recent influenza illness. We'll check Hemoccults and monitor hemoglobin regarding drop in hemoglobin and increase in BUN. Will start Protonix IV. Change to inpatient status secondary to acute kidney injury with hyperkalemia Lactate was obtained and was 3.6. Will give a bolus IV fluid if chest x-ray shows no pulmonary edema. No pulmonary edema on my read. Give 1 L normal saline bolus over 2 hours. Will start cefepime, Vancomycin, Levaquin. Obtain blood cultures 2. 400 of urine was noted on post void bladder scan. Renal ultrasound is pending. 08/04/17 Continue Tamiflu for influenza. Dose decreased due to renal function. Continue IV steroids and breathing treatments - still with wheezing, poor air exchange, dyspnea slightly improved today. Started on vancomycin, cefepime, Levaquin yesterday for severe sepsis/ pneumonia. Blood cultures are pending. Can likely adjust antibiotics for treatment of Pseudomonas pneumonia. ReCheck EKG (this morning's EKG shows normal sinus rhythm) and serial troponin now regarding chest pain. (EKG yesterday showed normal sinus rhythm with normal troponins) Chest x-ray today We'll discuss if transfusion needed with the patient's oncologist Dr. Mcghee Discussed with emergency medical technician basic, Dr. Carl and he recommends discontinuation of D5 with bicarbonate and initiating normal saline. 08/05/17 Influenza- Tamiflu completed. Supportive care. Wean steroids down. Continue nebulized medication. Pseudomonal PNA- Continue cefepime. Can discontinue vancomycin. NORRIS/CKD- Follows with Dr. Carl. Hyperkalemia resolved. SCr baseline appears to be around 2.0. Serum osmo remains elevated. Increase IVF to 125ml/hr overnoc. Continue Cardura for now. Anemia, multifactorial- monitor labs. Multiple myeloma- on chemotherapy, s/p BMTx. Per Dr. Mcghee. Continue pain medications per home routine. 08/06/17 Continue with cefepime for antimicrobial coverage. Decrease Solu-Medrol to 62.5mg IV q 12 hours. Continue Neb treatments. Quintanilla placed due to urinary retention. Will start Flomax 0.4mg nightly (in addition to his Cardura) and initiate bladder retraining. Can discontinue Protonix. Encourage ambulation to help strength. 08/07/17 Continue with cefepime for pseudomonal coverage. Pulmonology tapering Solu-Medrol. Recommend Omeprazole since on steroids. Continue bladder retraining. Decrease rate of IVF to 75 mL/hr. BUN 50 and cr 2.5. Weight trending up about 10 kg from admission. Start Senna Plus BID; MOM PRN. Hgb stable at 8.5; Platelets 111. WBC normal at 9.7.
[2017-08-07] MEDS: TAMSULOSIN 0.4 MG CAPSULE PO SCH (21:15)
[2017-08-07] MEDS: SENNA + DOCUSATE TABLET PO SCH (21:23)
[2017-08-07] MEDS: GABAPENTIN 300 MG CAPSULE PO SCH (21:44)
[2017-08-08] MEDS: METHYLPREDNISOLONE SOD SUCC 125mg/2ml INJECTION IVP SCH ×3 (01:25→17:35)
[2017-08-08] MEDS: CEFEPIME 1 GM in NS 50 ML IV SCH ×2 (02:10→14:29)
[2017-08-08] MEDS: ALBUTEROL/IPRATROPIUM 2.5mg-0.5mg/3ml NEB AEROSOL SCH ×6 (03:27→22:59)
[2017-08-08] MEDS: HYDROCODONE/APAP 10 MG/325 MG TABLET PO PRN ×3 (05:45→17:36)
[2017-08-08] MEDS: NS 1,000 ML IV SCH ×2 (05:45→19:35)
[2017-08-08] MEDS: MORPHINE SULFATE 2mg INJ IVP PRN ×2 (05:45→12:34)
[2017-08-08] MEDS: OMEPRAZOLE 20 MG CAPSULE PO SCH (05:45)
[2017-08-08] MEDS: INSULIN ASPART 100unit/ml INJECTION SQ PRN ×4 (06:25→20:46)
[2017-08-08] MEDS: ALPRAZolam 0.5 MG TABLET PO PRN ×2 (06:28→19:45)
[2017-08-08] MEDS: BUDESONIDE INH.SOLN 0.5mg/2ml NEB AEROSOL SCH ×2 (06:59→19:26)
[2017-08-08] MEDS: NYSTATIN 500,000 units/5 ml ORAL LIQUID PO SCH ×4 (09:25→20:56)
[2017-08-08] MEDS: DOXAZOSIN 4 MG TABLET PO SCH ×2 (09:25→20:46)
[2017-08-08] MEDS: ASPIRIN *EC* 81 MG TABLET PO SCH (09:26)
[2017-08-08] MEDS: SENNA + DOCUSATE TABLET PO SCH ×2 (09:26→20:44)
[2017-08-08] MEDS: AMLODIPINE 5 MG TABLET PO SCH (09:26)
--- NOTE | 2017-08-08 16:12 | Pulmonology Progress Note ---
Subjective Principal diagnosis: SOB Interval history: feeling better. still with some cough and wheeze Exam Vital signs: Temperature 95.3 F L 08/08/17 07:50 Pulse Rate 100 08/08/17 08:00 Respiratory Rate 20 08/08/17 14:14 Blood Pressure 145/71 H 08/08/17 07:50 Pulse Oximetry 97 08/08/17 14:14 Inpatient Medications: Generic Name Dose Route Start Last Admin Trade Name Freq PRN Reason Stop Dose Admin Hydrocodone Bitart/Acetaminophen 1 - 2 tab 08/01/17 14:30 08/08/17 10:44 [place] 10/325 PO 1 tab Q4H PRN Administration Pain Albuterol/Ipratropium 3 ml 08/04/17 12:00 08/08/17 14:12 Duoneb AEROSOL 3 ml Q4HR RADHA Administration Alprazolam 0.5 mg 08/01/17 10:47 08/08/17 06:28 Xanax PO 0.5 mg BID PRN Administration Anxiety Amlodipine Besylate 5 mg 08/02/17 09:00 08/08/17 09:26 Norvasc PO 5 mg DAILY RADHA Administration Aspirin 81 mg 08/02/17 09:00 08/08/17 09:26 Ecotrin PO 81 mg DAILY RADHA Administration Budesonide 0.5 mg 08/04/17 11:44 08/08/17 06:59 Pulmicort Inhalation AEROSOL 0.5 mg RTBID RADHA Administration Dextrose 20 ml 08/04/17 08:10 D50%W IVP PRN PRN Hypoglycemia Doxazosin Mesylate 4 mg 08/01/17 21:00 08/08/17 09:25 Cardura PO 4 mg BID RADHA Administration Fentanyl 25 mcg 08/04/17 10:47 08/07/17 10:10 Duragesic Patch TD 25 mcg Q72H RADHA Administration Fentanyl Citrate 1 removal 08/04/17 11:00 08/07/17 10:21 Duragesic Patch Removal TD 1 removal Q3D RADHA Administration Gabapentin 300 mg 08/01/17 21:00 08/07/17 21:44 Neurontin PO 300 mg HS RADHA Administration Glucose 37.5 gm 08/04/17 08:10 Glutose 15 PO PRN PRN Hypoglycemia Hydromorphone HCl 2 mg 08/01/17 10:47 Dilaudid PO Q4H PRN Pain Cefepime HCl 1 gm/ Sodium 50 mls @ 200 mls/hr 08/03/17 14:00 08/08/17 14:44 Chloride IV Infused Q12H RADHA Infusion Sodium Chloride 1,000 mls @ 75 mls/hr 08/04/17 08:30 08/08/17 14:49 Normal Saline IV 75 mls/hr .[id number] RADHA Infusion Insulin Aspart 1 - 5 unit 08/04/17 08:10 08/08/17 12:34 Novolog SQ 2 unit SS PRN Administration Hyperglycemia Protocol Levalbuterol HCl 1.25 mg 08/01/17 10:47 08/03/17 08:53 Xopenex 1.25mg/3ml AEROSOL 1.25 mg Q4HR PRN Administration Shortness of air Lorazepam 0.5 mg 08/01/17 10:47 08/08/17 10:46 Ativan Inj IVP 0.5 mg Q4H PRN Administration Anxiety/Air hunger/Agitation Magnesium Hydroxide 30 ml 08/07/17 16:18 Mom PO DAILY PRN Constipation Menthol 1 lozenge 08/01/17 10:47 Ricola Sf MM PRN PRN Cough Methylprednisolone Sodium Succinate 80 mg 08/07/17 17:00 08/08/17 09:24 Solu-Medrol IVP 80 mg Q8HR RADHA Administration Morphine Sulfate 2 mg 08/01/17 10:47 08/08/17 12:34 Morphine Sulfate Inj IVP 2 mg Q2HR PRN Administration Pain /Air hunger Nystatin 5 ml 08/01/17 13:00 08/08/17 14:29 Mycostatin PO 5 ml QID RADHA Administration Omeprazole 20 mg 08/08/17 06:30 08/08/17 05:45 Prilosec PO 20 mg ACB RADHA Administration Oxycodone HCl 20 mg 08/01/17 10:47 Oxycontin PO Q12H PRN Pain Oxycodone HCl 5 mg 08/01/17 10:47 Roxicodone *Ir* PO Q6H PRN Pain Promethazine HCl/Codeine 5 ml 08/01/17 10:47 Phenergan + Codeine PO Q6HR PRN Cough Senna/Docusate Sodium 1 tab 08/07/17 21:00 08/08/17 09:26 Senna Plus Tablet PO 1 tab BID RADHA Administration Sodium Chloride 10 - 80 ml 08/01/17 08:39 08/06/17 21:23 Iv Flush IVF 10 ml PRN PRN Administration Flushing Sodium Chloride 500 ml 08/04/17 10:48 Normal Saline IV PRN PRN Tamsulosin HCl 0.4 mg 08/06/17 21:00 08/07/17 21:15 Flomax PO 0.4 mg HS RADHA Administration Discontinued Medications Generic Name Dose Route Start Last Admin Trade Name Freq PRN Reason Stop Dose Admin Acetaminophen 650 mg 08/04/17 10:49 08/04/17 12:46 Tylenol PO 08/04/17 10:50 650 mg O ONE Administration Hydrocodone Bitart/Acetaminophen 1 tab 08/01/17 10:47 08/01/17 11:53 [place] 10/325 PO 1 tab Q4H PRN Administration Pain Albuterol/Ipratropium 3 ml 08/01/17 08:38 08/01/17 08:53 Duoneb AEROSOL 08/01/17 08:39 3 ml O ONE Administration Albuterol/Ipratropium 3 ml 08/01/17 08:45 08/01/17 09:00 Duoneb AEROSOL 08/01/17 08:46 3 ml O ONE Administration Albuterol/Ipratropium 3 ml 08/01/17 11:00 08/04/17 05:08 Duoneb AEROSOL 3 ml RTQID RADHA Administration Diphenhydramine HCl 25 mg 08/04/17 10:48 08/04/17 12:46 Benadryl PO 08/04/17 10:49 25 mg ONCE ONE Administration Furosemide 20 mg 08/02/17 11:05 08/02/17 12:09 Lasix IVP 08/02/17 11:06 20 mg O ONE Administration Furosemide 80 mg 08/03/17 11:23 08/03/17 13:01 Lasix IVP 08/03/17 11:24 Not Given ONCE ONE Furosemide 80 mg 08/03/17 16:30 08/03/17 16:49 Lasix IVP 08/03/17 16:31 80 mg O ONE Administration Sodium Chloride 1,000 mls @ 75 mls/hr 08/01/17 10:47 08/03/17 13:00 1/2 Normal Saline IV Infused .[id number] RADHA Infusion Immune Globulin 25 g/ Sodium 250 mls @ 25 mls/hr 08/02/17 13:00 08/02/17 17: 28 Chloride IV 08/02/17 22:59 Infused O ONE Infusion Sodium Bicarbonate 150 meq/ 1,150 mls @ 125 mls/hr 08/03/17 11:30 08/03/17 16 :10 Dextrose IV Not Given .Q9H12M RADHA Cefepime HCl 2 gm/ Sodium 100 mls @ 200 mls/hr 08/03/17 12:30 08/03/17 17:17 Chloride IV Not Given Q24H RADHA Levofloxacin/Dextrose 750 mg in 150 mls @ 100 mls/hr 08/03/17 12:30 08/03/17 17:17 Levaquin Premix IV Not Given Q72H ARDHA Sodium Chloride 1,000 mls @ 500 mls/hr 08/03/17 12:33 08/03/17 15:01 Normal Saline IV 08/03/17 14:32 Infused .Q2H ONE Infusion Levofloxacin/Dextrose 500 mg in 100 mls @ 100 mls/hr 08/03/17 13:00 08/03/17 17:18 Levaquin Premix IV 08/03/17 13:59 Infused O ONE Infusion Levofloxacin/Dextrose 250 mg in 50 mls @ 100 mls/hr 08/04/17 13:00 Levaquin Premix IV Q24H RADHA Vancomycin HCl 1,000 mg/ 250 mls @ 250 mls/hr 08/03/17 18:00 08/05/17 07:07 Sodium Chloride IV Infused Q36H RADHA Infusion Sodium Bicarbonate 150 meq/ 1,000 mls @ 125 mls/hr 08/03/17 20:15 08/04/17 02 :49 Dextrose IV 08/04/17 05:15 125 mls/hr .Q8H RADHA Infusion Sodium Bicarbonate 150 meq/ 1,150 mls @ 125 mls/hr 08/03/17 21:00 08/05/17 12 :38 Dextrose IV Not Given .Q9H12M RADHA Levalbuterol HCl 1.25 mg 08/01/17 09:35 08/01/17 09:52 Xopenex 1.25mg/3ml AEROSOL 08/01/17 09:36 1.25 mg O ONE Administration Lidocaine HCl 20 ml 08/06/17 14:00 08/06/17 14:32 Urojet MM 08/06/17 14:01 20 ml O ONE Administration Methylprednisolone Sodium Succinate 125 mg 08/01/17 08:41 08/01/17 08:46 Solu-Medrol IVP 08/01/17 08:42 125 mg O ONE Administration Methylprednisolone Sodium Succinate 125 mg 08/01/17 15:00 08/05/17 14:41 Solu-Medrol IVP 125 mg Q6HR RADHA Administration Methylprednisolone Sodium Succinate 80 mg 08/05/17 16:34 08/07/17 10:10 Solu-Medrol IVP 80 mg Q6HR RADHA Administration Miscellaneous Medication 1 each 08/03/17 12:27 08/03/17 17:17 Pharmacy Consult - Renal Dosing 08/03/17 12:28 Not Given O ONE Oseltamivir Phosphate 75 mg 08/01/17 21:00 08/02/17 09:05 Tamiflu PO 08/06/17 09:01 75 mg BID RADHA Administration Oseltamivir Phosphate 30 mg 08/03/17 09:00 08/05/17 09:30 Tamiflu PO 08/05/17 09:01 30 mg DAILY RADHA Administration Pantoprazole Sodium 40 mg 08/03/17 11:27 08/06/17 08:45 Protonix Iv IVP 40 mg BID RADHA Administration Pharmacy Consult 1 each 08/01/17 11:10 Pharmacy Consult - Fall Risk XX 08/01/17 11:11 ONE TIME ONE Sodium Chloride 500 ml 08/04/17 08:05 Normal Saline IV PRN PRN Vancomycin HCl 1 each 08/03/17 12:26 08/05/17 09:46 Pharmacy Consult - Vancomycin 08/03/17 12:27 Not Given O ONE - Constitutional no acute distress - Routine HEENT Exam Head: Present: normocephalic, atraumatic ENT: Present: mucous membranes moist - Routine Respiratory Exam Present: decreased breath sounds, prolonged expiratory phase. Absent: accessory muscle use - Routine Cardiovascular Exam Present: RRR - Urinary Catheter Management Straight Cath placed during this visit: yes, but has since been removed by the nurse Insertion date: 08/06/17 Insertion time: 14:59 Removal date: 08/01/17 Removal time: 20:28 Results - Laboratory Findings Laboratory: Laboratory Results - last 48 hr 08/04/17 08/06/17 08/07/17 07:40 20:24 04:33 WBC 9.7 RBC 2.88 L Hgb 8.5 L Hct 26.6 L MCV 92.4 MCH 29.5 MCHC 32.0 RDW Std Deviation 52.5 H Plt Count 111 L MPV 11.0 Immature Gran % (Auto) Not performed Neut % (Auto) Not performed Lymph % (Auto) Not performed [place] % (Auto) Not performed Eos % (Auto) Not performed Baso % (Auto) Not performed Neut # (Auto) Not performed Lymph # (Auto) Not performed [place] # (Auto) Not performed Eos # (Auto) Not performed Baso # (Auto) Not performed Abs Immat Gran (auto) Not performed Neutrophils % (Manual) 91.0 H Band Neutrophils % 1.0 Lymphocytes % (Manual) 4.0 L Monocytes % (Manual) 3.0 Metamyelocytes % 1.0 H Neutrophils # (Manual) 8.8 H Band Neutrophils # 0.1 Lymphocytes # (Manual) 0.4 L Monocytes # (Manual) 0.3 Metamyelocytes # 0.1 Poikilocytosis 2+ Anisocytosis 1+ Tear Drop Cells 1+ Ovalocytes 1+ Schistocytes 1+ RBC Morph Comment Abnormal Turbidity Sodium Potassium Chloride Carbon Dioxide Anion Gap BUN Creatinine GFR Calculation BUN/Creatinine Ratio Glucose Glucometer 276 Calculated Osmolality Calcium Iron 58 TIBC 268 % Saturation 22 Total Bilirubin Icterus Index AST ALT Alkaline Phosphatase Total Protein Albumin Globulin Albumin/Globulin Ratio Vitamin B12 507 Folate 12.3 Specimen Hemolysis 08/07/17 08/07/17 08/07/17 04:33 05:58 11:04 WBC RBC Hgb Hct MCV MCH MCHC RDW Std Deviation Plt Count MPV Immature Gran % (Auto) Neut % (Auto) Lymph % (Auto) [place] % (Auto) Eos % (Auto) Baso % (Auto) Neut # (Auto) Lymph # (Auto) [place] # (Auto) Eos # (Auto) Baso # (Auto) Abs Immat Gran (auto) Neutrophils % (Manual) Band Neutrophils % Lymphocytes % (Manual) Monocytes % (Manual) Metamyelocytes % Neutrophils # (Manual) Band Neutrophils # Lymphocytes # (Manual) Monocytes # (Manual) Metamyelocytes # Poikilocytosis Anisocytosis Tear Drop Cells Ovalocytes Schistocytes RBC Morph Comment Turbidity < 20 Sodium 145 H Potassium 4.3 Chloride 111 H Carbon Dioxide 25 Anion Gap 9 BUN 50.0 H Creatinine 2.5 H GFR Calculation 25 BUN/Creatinine Ratio 20 Glucose 164 H Glucometer 193 212 Calculated Osmolality 296 H Calcium 6.8 L Iron TIBC % Saturation Total Bilirubin 0.20 Icterus Index < 2 AST 50 ALT 85 H Alkaline Phosphatase 86 Total Protein 5.5 L Albumin 3.0 L Globulin 2.5 Albumin/Globulin Ratio 1.2 Vitamin B12 Folate Specimen Hemolysis < 15 08/07/17 08/07/17 08/08/17 16:16 20:00 03:49 WBC 10.1 RBC 2.97 L Hgb 8.8 L Hct 27.3 L MCV 91.9 MCH 29.6 MCHC 32.2 RDW Std Deviation 52.5 H Plt Count 98 L MPV 10.4 Immature Gran % (Auto) Not performed Neut % (Auto) Not performed Lymph % (Auto) Not performed [place] % (Auto) Not performed Eos % (Auto) Not performed Baso % (Auto) Not performed Neut # (Auto) Not performed Lymph # (Auto) Not performed [place] # (Auto) Not performed Eos # (Auto) Not performed Baso # (Auto) Not performed Abs Immat Gran (auto) Not performed Neutrophils % (Manual) 88.0 H Band Neutrophils % Lymphocytes % (Manual) 3.0 L Monocytes % (Manual) 9.0 Metamyelocytes % Neutrophils # (Manual) 8.9 H Band Neutrophils # Lymphocytes # (Manual) 0.3 L Monocytes # (Manual) 0.9 H Metamyelocytes # Poikilocytosis 2+ Anisocytosis 1+ Tear Drop Cells 1+ Ovalocytes 1+ Schistocytes 1+ RBC Morph Comment Abnormal Turbidity Sodium Potassium Chloride Carbon Dioxide Anion Gap BUN Creatinine GFR Calculation BUN/Creatinine Ratio Glucose Glucometer 197 212 Calculated Osmolality Calcium Iron TIBC % Saturation Total Bilirubin Icterus Index AST ALT Alkaline Phosphatase Total Protein Albumin Globulin Albumin/Globulin Ratio Vitamin B12 Folate Specimen Hemolysis 08/08/17 08/08/17 08/08/17 03:49 06:01 12:00 WBC RBC Hgb Hct MCV MCH MCHC RDW Std Deviation Plt Count MPV Immature Gran % (Auto) Neut % (Auto) Lymph % (Auto) [place] % (Auto) Eos % (Auto) Baso % (Auto) Neut # (Auto) Lymph # (Auto) [place] # (Auto) Eos # (Auto) Baso # (Auto) Abs Immat Gran (auto) Neutrophils % (Manual) Band Neutrophils % Lymphocytes % (Manual) Monocytes % (Manual) Metamyelocytes % Neutrophils # (Manual) Band Neutrophils # Lymphocytes # (Manual) Monocytes # (Manual) Metamyelocytes # Poikilocytosis Anisocytosis Tear Drop Cells Ovalocytes Schistocytes RBC Morph Comment Turbidity < 20 Sodium 142 Potassium 4.4 Chloride 109 H Carbon Dioxide 23 Anion Gap 10 BUN 54.0 H* Creatinine 2.2 H D GFR Calculation 29 BUN/Creatinine Ratio 25 Glucose 153 H Glucometer 173 223 Calculated Osmolality 291 H Calcium 6.9 L Iron TIBC % Saturation Total Bilirubin Icterus Index < 2 AST ALT Alkaline Phosphatase Total Protein Albumin Globulin Albumin/Globulin Ratio Vitamin B12 Folate Specimen Hemolysis < 15 Assessment and Plan (1) Asthma with exacerbation Status: Acute Current Visit: Yes - Assessment and Plan Acute Hypoxic Respiratory Failure Asthma exacerbation Influenza A NORRIS Sepsis - Time Spent With Patient Total time spent is greater than 50% in coordination of care (as documented) at patient's floor/unit and/or counseling patient: less than 15 minutes
[2017-08-08] MEDS: SALINE FLUSH 10ml SYRINGE IVF PRN (17:37)
--- NOTE | 2017-08-08 17:47 | Progress Note ---
- Date 08/08/17 Subjective: Nacho is doing well today, and feels ready to go home. He c/o his chronic pain in his chest and right side -- this is controlled with [place] and a Fentanyl patch. He continues to wheeze, but he states that he always wheezes and would like a new Rx for albuterol inhaler, which works "instantly". He states that his appetite has returned. His bowels are moving. He knows that he will have to take it easy at home and he states that his sister Светлана is already planning on helping him at home. Objective Vital signs: Temperature 97.4 F 08/08/17 16:56 Pulse Rate 111 H 08/08/17 16:56 Respiratory Rate 20 08/08/17 16:56 Blood Pressure 148/71 H 08/08/17 16:56 Pulse Oximetry 96 08/08/17 16:56 Height/Weight/BMI: Height 1.68 m Weight 70 kg Body Mass Index 24.3 - Constitutional Present: well nourished, well developed - Routine HEENT Exam Head: Present: normocephalic Eye: Absent: conjunctival icterus, scleral injection - Routine Respiratory Exam Present: wheezes - Routine Cardiovascular Exam Present: RRR, S1, S2 - Routine Abdominal Exam Present: soft, normoactive bowel sounds, non distended, non tender - Routine Extremities Exam Present: no edema, pulses intact. Absent: calf tenderness - Routine Musculoskeletal Exam Musculoskeletal: Present: moving extremities well - Routine Skin Exam Present: intact, dry, warm Comments: face/chest flushed - Routine Neurological Exam Present: alert, oriented X3, normal speech - Routine Psychiatric Exam Present: normal affect, normal thought process, cooperative Results - Labs CBC & Chem 7: 08/08/17 03:49 08/08/17 03:49 Microbiology Results: Microbiology 08/03/17 13:11 Port/Picc Blood Culture - Final No Growth After 5 Days 08/03/17 13:16 Port/Picc Blood Culture - Final No Growth After 5 Days 08/03/17 13:42 Sputum, Expectorated Gram Stain - Final 08/03/17 13:42 Sputum, Expectorated Sputum Culture - Final Assessment and Plan (1) Asthma with exacerbation Current visit: Yes Status: Acute Assessment and Plan: IMPRESSION Asthma exacerbation Influenza type B (POA) Severe sepsis - lactate 3.6 Pneumonia (diagnosed on CT) with Pseudomonas aeruginosa in sputum Acute kidney injury on chronic kidney disease -slightly improved. (Renal ultrasound without hydronephrosis) Hyperkalemia (POA) - resolved Hypokalemia (not POA) Chest pain - with normal initial troponin and EKG Anemia of chronic disease with slow decrease in hemoglobin, was 9.9 on admission and 7.9 on 08/04/2017 . Hemoccult stool negative Acute debility, weakness Thrombocytopenia Immunocompromised secondary to Multiple Myeloma, diagnosed Oct, 2013, on chemotherapy, s/p bone marrow transplant HTN CKD stage IV Urinary retention - Leung placed / and bladder retraining started OA Chronic pain, narcotic dependent PLAN Continue with cefepime for pseudomonal coverage - day #6. Weight is up around 13 kg; IVF have been ongoing for NORRIS -- creatinine improved to 2.2. Repeat CXR. If no diuresis is needed, DC leung. Hyperglycemia secondary to steroids - increase insulin to medium-dose regimen. Continues on Solu-Medrol 80 mg IV TID per pulm. Hgb stable at 8.8; plt slightly decreased at 98. Na improved to 142. Ca low at 6.9; albumin 3.0. Check ionized calcium, phosphorus, mg in am. Could also consider checking PTH, Vit D and uric acid levels. Discussed with Dr. Bernal. DVT Prophylaxis: SCD's GI Prophylaxis: other Resuscitation Status: Full Code - Time spent with patient Time with patient PN: 25 minutes - Physician Narrative Physician: Juan José Bernal MD Narrative: Date: 08/08/17 Time: 1930 Have independently interviewed and examined pt. Chart reviewed. Care discussed with CM and my BATTERY TEST ENGINEER. Care plan developed with my supervision; agree with above. Feels like he is improving. Breathing better-less SOA and wheezing less. Appetite increasing. No nausea. Bowel moving. Strength making improvements. Lungs: decreased, congestion and slightly tight. Much less labored breathing. CV : regular MSE: awake alert Plan: Will continue IV antibiotics (course about completed) and IVF. Trial of removing leung tomorrow am - watch for retention. Encourage activities. Hospital Course Summary Disclaimer: The visit summary below is not to be considered part of the above Progress Note. Hospital Course: 08/01/17 Admit, observation status, under the hospitalist service. Asthma exacerbation: DuoNeb QID + Xopenex PRN; Solu-Medrol 125 mg Q6h IV -- dc ADELINA d/t immunocompromised state. Check viral respiratory panel. Ativan PRN anxiety/air hunger. Hyperkalemia: IVF. Debility/weakness: Consult PT/OT. Check orthostatics. CKD stage IV: unsure of baseline creatinine. IVF for hydration, recheck in am. Chronic pain: continue home pain meds. Multiple Myeloma: consult Dr. Mcghee. Advanced directives: Sister Светлана is DPOA; would want an attempt at resuscitation. Not interested in discussing end-of-life per sister, who has noted a significant functional decline over the last year. Influenza type A - Tamiflu 75mg BID for treatment 08/02/17 Continue Tamiflu for influenza. Continue IV steroids and breathing treatments - still with wheezing, poor air exchange, and conversational dyspnea. Repeat CXR negative for pneumonia. Sputum positive for pseudomonas - d/w Dr. Meyer - w/o fever or infiltrate on CXR it's most likely colonization. Hyperkalemia increased to 5.9 - IV Lasix given. Repeat BMP in am. Dr. Mcghee recommends IVIG. Hgb decreased from 9.9 to 8.5; platelets also down to 121. Recheck in am. PT eval: they recommend IP PT and home with home health. 08/03/2017 Continue Tamiflu for influenza. Dose decreased due to renal function. Continue IV steroids and breathing treatments - still with wheezing, poor air exchange, and conversational dyspnea. Sputum positive for pseudomonas Consulted Dr. Kerr today regarding asthma exacerbation and positive sputum with Pseudomonas. May need antibiotics. Consider CT chest without contrast if patient able to lie flat. Check EKG and troponin regarding chest pain. (EKG showed normal sinus rhythm) Discussed the patient's chronic kidney disease with worsening creatinine and elevated calcium with Dr. Carl and he recommended D5W with 3 A of bicarbonate to run at 125 an hour and Lasix 1. We'll recheck basic metabolic profile later today. If potassium is not improving he will need transfer to [place] for possible dialysis. He suspects his increased creatinine may be due to ATN caused by his recent influenza illness. We'll check Hemoccults and monitor hemoglobin regarding drop in hemoglobin and increase in BUN. Will start Protonix IV. Change to inpatient status secondary to acute kidney injury with hyperkalemia Lactate was obtained and was 3.6. Will give a bolus IV fluid if chest x-ray shows no pulmonary edema. No pulmonary edema on my read. Give 1 L normal saline bolus over 2 hours. Will start cefepime, Vancomycin, Levaquin. Obtain blood cultures 2. 400 of urine was noted on post void bladder scan. Renal ultrasound is pending. 08/04/17 Continue Tamiflu for influenza. Dose decreased due to renal function. Continue IV steroids and breathing treatments - still with wheezing, poor air exchange, dyspnea slightly improved today. Started on vancomycin, cefepime, Levaquin yesterday for severe sepsis/ pneumonia. Blood cultures are pending. Can likely adjust antibiotics for treatment of Pseudomonas pneumonia. ReCheck EKG (this morning's EKG shows normal sinus rhythm) and serial troponin now regarding chest pain. (EKG yesterday showed normal sinus rhythm with normal troponins) Chest x-ray today We'll discuss if transfusion needed with the patient's oncologist Dr. Mcghee Discussed with speech clinician, Dr. Carl and he recommends discontinuation of D5 with bicarbonate and initiating normal saline. 08/05/17 Influenza- Tamiflu completed. Supportive care. Wean steroids down. Continue nebulized medication. Pseudomonal PNA- Continue cefepime. Can discontinue vancomycin. NORRIS/CKD- Follows with Dr. Carl. Hyperkalemia resolved. SCr baseline appears to be around 2.0. Serum osmo remains elevated. Increase IVF to 125ml/hr overnoc. Continue Cardura for now. Anemia, multifactorial- monitor labs. Multiple myeloma- on chemotherapy, s/p BMTx. Per Dr. Mcghee. Continue pain medications per home routine. 08/06/17 Continue with cefepime for antimicrobial coverage. Decrease Solu-Medrol to 62.5mg IV q 12 hours. Continue Neb treatments. Leung placed due to urinary retention. Will start Flomax 0.4mg nightly (in addition to his Cardura) and initiate bladder retraining. Can discontinue Protonix. Encourage ambulation to help strength. 08/07/17 Continue with cefepime for pseudomonal coverage. Pulmonology tapering Solu-Medrol. Recommend Omeprazole since on steroids. Continue bladder retraining. Decrease rate of IVF to 75 mL/hr. BUN 50 and cr 2.5. Weight trending up about 10 kg from admission. Start Senna Plus BID; MOM PRN. Hgb stable at 8.5; Platelets 111. WBC normal at 9.7. 08/08/17 Continue with cefepime for pseudomonal coverage - day #6. Weight is up around 13 kg; IVF have been ongoing for NORRIS -- creatinine improved to 2.2. Repeat CXR. If no diuresis is needed, ABDIRAHMAN leung. Hyperglycemia secondary to steroids - increase insulin to medium-dose regimen. Continues on Solu-Medrol 80 mg IV TID per pulm. Hgb stable at 8.8; plt slightly decreased at 98. Na improved to 142. Ca low at 6.9; albumin 3.0. Check ionized calcium, phosphorus, mg in am. Could also consider checking PTH, Vit D and uric acid levels.
[2017-08-08] MEDS: GABAPENTIN 300 MG CAPSULE PO SCH (20:44)
[2017-08-08] MEDS: TAMSULOSIN 0.4 MG CAPSULE PO SCH (20:45)
[2017-08-09] MEDS: METHYLPREDNISOLONE SOD SUCC 125mg/2ml INJECTION IVP SCH ×3 (00:03→16:36)
[2017-08-09] MEDS: HYDROCODONE/APAP 10 MG/325 MG TABLET PO PRN ×4 (00:18→17:50)
[2017-08-09] MEDS: CEFEPIME 1 GM in NS 50 ML IV SCH ×2 (02:28→13:58)
[2017-08-09] MEDS: ALBUTEROL/IPRATROPIUM 2.5mg-0.5mg/3ml NEB AEROSOL SCH ×6 (03:11→23:24)
[2017-08-09] MEDS: MORPHINE SULFATE 2mg INJ IVP PRN (03:22)
[2017-08-09] MEDS: ALPRAZolam 0.5 MG TABLET PO PRN ×2 (03:23→17:50)
[2017-08-09] MEDS: SALINE FLUSH 10ml SYRINGE IVF PRN ×2 (05:26→19:54)
[2017-08-09] MEDS: OMEPRAZOLE 20 MG CAPSULE PO SCH (06:40)
[2017-08-09] MEDS: INSULIN ASPART 100unit/ml INJECTION SQ PRN ×3 (06:41→14:23)
[2017-08-09] MEDS: BUDESONIDE INH.SOLN 0.5mg/2ml NEB AEROSOL SCH ×2 (07:47→19:15)
[2017-08-09] MEDS: NS 1,000 ML IV SCH (08:25)
[2017-08-09] MEDS: ASPIRIN *EC* 81 MG TABLET PO SCH (08:26)
[2017-08-09] MEDS: NYSTATIN 500,000 units/5 ml ORAL LIQUID PO SCH ×4 (08:26→20:46)
[2017-08-09] MEDS: DOXAZOSIN 4 MG TABLET PO SCH ×2 (08:26→20:46)
[2017-08-09] MEDS: SENNA + DOCUSATE TABLET PO SCH ×2 (08:26→20:45)
[2017-08-09] MEDS: AMLODIPINE 5 MG TABLET PO SCH (08:26)
--- NOTE | 2017-08-09 09:21 | XRay Report ---
INDICATION: wheezing/cough f/u PROCEDURE: CHEST 2-VIEWS UPRIGHT (PA & LAT) Encounter: Initial COMPARISON: August 06, 2017 FINDINGS: Lung ansari are stable. No new areas of airspace disease. Small pleural effusions. No pneumothorax. Heart size and mediastinal contours are stable. Pulmonary vascularity appears normal. Impression: Stable appearance of the chest. .
--- NOTE | 2017-08-09 10:46 | Progress Note ---
- Date 08/09/17 Subjective: Mr Quarles is seen this morning in follow-up and noted to have mild respiratory distress SCDs having significant expiratory wheezing. He is not positioned well in the bed, however, does admit to feeling more short of breath. He is noted to be on room air. He reports having ongoing chest and side pain that is chest wall and reports it resolves when he takes pain medication. Appetite has been fair. Denies abd pain or dysuria. Objective Vital signs: Temperature 95.7 F L 08/09/17 07:22 Pulse Rate 96 08/09/17 07:25 Respiratory Rate 16 08/09/17 07:47 Blood Pressure 156/82 H 08/09/17 07:25 Pulse Oximetry 96 08/09/17 07:47 Height/Weight/BMI: Height 1.68 m Weight 70.9 kg Body Mass Index 24.3 - Constitutional Present: mild distress, well nourished, well developed - Routine HEENT Exam Eye: Present: EOMI ENT: Present: mucous membranes moist, dentition normal - Routine Respiratory Exam Present: wheezes - Routine Cardiovascular Exam Present: RRR, S1, S2. Absent: murmur - Routine Abdominal Exam Present: soft, normoactive bowel sounds, non distended. Absent: tenderness - Routine Extremities Exam Present: normal capillary refill - Routine Skin Exam Present: intact, dry, warm - Routine Neurological Exam Present: alert, oriented X3, CN II-XII intact - Routine Lymphatic Exam Lymphatic: Absent: adenopathy - Routine Psychiatric Exam Present: normal affect, cooperative Results - Labs CBC & Chem 7: 08/09/17 05:23 08/09/17 05:23 Microbiology Results: Microbiology 08/03/17 13:11 Port/Picc Blood Culture - Final No Growth After 5 Days 08/03/17 13:16 Port/Picc Blood Culture - Final No Growth After 5 Days 08/03/17 13:42 Sputum, Expectorated Gram Stain - Final 08/03/17 13:42 Sputum, Expectorated Sputum Culture - Final Assessment and Plan (1) Asthma with exacerbation Current visit: Yes Status: Acute Assessment and Plan: IMPRESSION Asthma exacerbation Influenza type B (POA) Severe sepsis - lactate 3.6 Pneumonia (diagnosed on CT) with Pseudomonas aeruginosa in sputum Acute kidney injury on chronic kidney disease -slightly improved. (Renal ultrasound without hydronephrosis) Hyperkalemia (POA) - resolved Hypokalemia (not POA) Chest pain - with normal initial troponin and EKG Anemia of chronic disease with slow decrease in hemoglobin, was 9.9 on admission and 7.9 on 08/04/2017 . Hemoccult stool negative Acute debility, weakness Thrombocytopenia Immunocompromised secondary to Multiple Myeloma, diagnosed Oct, 2013, on chemotherapy, s/p bone marrow transplant HTN CKD stage IV Urinary retention - Quintanilla placed / and bladder retraining started OA Chronic pain, narcotic dependent PLAN Did ask nursing staff to help reposition patient in bed so that he can breathe easier. Continue with scheduled breathing treatments, patient does require an additional when necessary to help with wheezing. Continues on IV Solu-Medrol for pulmonary inflammation Today is day 7 of cefepime for pulmonary coverage of Pseudomonas. Weight continues to be up approximately 10 KG from admission Overall labs reviewed. Call Out Clerk remains stable at 2.0 Case discussed with nursing and attending, Dr Bernal DVT Prophylaxis: SCD's Resuscitation Status: Full Code - Time spent with patient Time with patient PN: 25 minutes - Physician Narrative Physician: Juan José Bernal MD Narrative: Date: 08/09/17 Time: 1829 Have independently interviewed and examined pt. Chart reviewed. Case discussed with CM and my DEFECT CUTTER. Care plan developed with my supervision; agree with above. Feeling better-breathing easier, less SOA and congestion. Quintanilla removed. Urinating - bladder scan earlier 200 and later 400. No urinary pain. No ab pain. Strength improve. Lungs: decreased, improving air movement; still wheezes. CV: regular AB; soft nt MSE: awake alert appropriate Plan: Will D/C IVF - monitor how patient does without IVF support. Quintanilla removed - bladder scanner to check for retention. Course of cefepime nearly completed. Check lab tomorrow - possible discharge if doing well. Hospital Course Summary Disclaimer: The visit summary below is not to be considered part of the above Progress Note. Hospital Course: 08/01/17 Admit, observation status, under the hospitalist service. Asthma exacerbation: DuoNeb QID + Xopenex PRN; Solu-Medrol 125 mg Q6h IV -- dc ADELINA d/t immunocompromised state. Check viral respiratory panel. Ativan PRN anxiety/air hunger. Hyperkalemia: IVF. Debility/weakness: Consult PT/OT. Check orthostatics. CKD stage IV: unsure of baseline creatinine. IVF for hydration, recheck in am. Chronic pain: continue home pain meds. Multiple Myeloma: consult Dr. Mcghee. Advanced directives: Sister Светлана is DPOA; would want an attempt at resuscitation. Not interested in discussing end-of-life per sister, who has noted a significant functional decline over the last year. Influenza type A - Tamiflu 75mg BID for treatment 08/02/17 Continue Tamiflu for influenza. Continue IV steroids and breathing treatments - still with wheezing, poor air exchange, and conversational dyspnea. Repeat CXR negative for pneumonia. Sputum positive for pseudomonas - d/w Dr. Meyer - w/o fever or infiltrate on CXR it's most likely colonization. Hyperkalemia increased to 5.9 - IV Lasix given. Repeat BMP in am. Dr. Mcghee recommends IVIG. Hgb decreased from 9.9 to 8.5; platelets also down to 121. Recheck in am. PT eval: they recommend IP PT and home with home health. 08/03/2017 Continue Tamiflu for influenza. Dose decreased due to renal function. Continue IV steroids and breathing treatments - still with wheezing, poor air exchange, and conversational dyspnea. Sputum positive for pseudomonas Consulted Dr. Kerr today regarding asthma exacerbation and positive sputum with Pseudomonas. May need antibiotics. Consider CT chest without contrast if patient able to lie flat. Check EKG and troponin regarding chest pain. (EKG showed normal sinus rhythm) Discussed the patient's chronic kidney disease with worsening creatinine and elevated calcium with Dr. Carl and he recommended D5W with 3 A of bicarbonate to run at 125 an hour and Lasix 1. We'll recheck basic metabolic profile later today. If potassium is not improving he will need transfer to [place] for possible dialysis. He suspects his increased creatinine may be due to ATN caused by his recent influenza illness. We'll check Hemoccults and monitor hemoglobin regarding drop in hemoglobin and increase in BUN. Will start Protonix IV. Change to inpatient status secondary to acute kidney injury with hyperkalemia Lactate was obtained and was 3.6. Will give a bolus IV fluid if chest x-ray shows no pulmonary edema. No pulmonary edema on my read. Give 1 L normal saline bolus over 2 hours. Will start cefepime, Vancomycin, Levaquin. Obtain blood cultures 2. 400 of urine was noted on post void bladder scan. Renal ultrasound is pending. 08/04/17 Continue Tamiflu for influenza. Dose decreased due to renal function. Continue IV steroids and breathing treatments - still with wheezing, poor air exchange, dyspnea slightly improved today. Started on vancomycin, cefepime, Levaquin yesterday for severe sepsis/ pneumonia. Blood cultures are pending. Can likely adjust antibiotics for treatment of Pseudomonas pneumonia. ReCheck EKG (this morning's EKG shows normal sinus rhythm) and serial troponin now regarding chest pain. (EKG yesterday showed normal sinus rhythm with normal troponins) Chest x-ray today We'll discuss if transfusion needed with the patient's oncologist Dr. Mcghee Discussed with epic manager, Dr. Carl and he recommends discontinuation of D5 with bicarbonate and initiating normal saline. 08/05/17 Influenza- Tamiflu completed. Supportive care. Wean steroids down. Continue nebulized medication. Pseudomonal PNA- Continue cefepime. Can discontinue vancomycin. NORRIS/CKD- Follows with Dr. Carl. Hyperkalemia resolved. SCr baseline appears to be around 2.0. Serum osmo remains elevated. Increase IVF to 125ml/hr overnoc. Continue Cardura for now. Anemia, multifactorial- monitor labs. Multiple myeloma- on chemotherapy, s/p BMTx. Per Dr. Mcghee. Continue pain medications per home routine. 08/06/17 Continue with cefepime for antimicrobial coverage. Decrease Solu-Medrol to 62.5mg IV q 12 hours. Continue Neb treatments. Quintanilla placed due to urinary retention. Will start Flomax 0.4mg nightly (in addition to his Cardura) and initiate bladder retraining. Can discontinue Protonix. Encourage ambulation to help strength. 08/07/17 Continue with cefepime for pseudomonal coverage. Pulmonology tapering Solu-Medrol. Recommend Omeprazole since on steroids. Continue bladder retraining. Decrease rate of IVF to 75 mL/hr. BUN 50 and cr 2.5. Weight trending up about 10 kg from admission. Start Senna Plus BID; MOM PRN. Hgb stable at 8.5; Platelets 111. WBC normal at 9.7. 08/08/17 Continue with cefepime for pseudomonal coverage - day #6. Weight is up around 13 kg; IVF have been ongoing for NORRIS -- creatinine improved to 2.2. Repeat CXR. If no diuresis is needed, ABDIRAHMAN Quintanilla. Hyperglycemia secondary to steroids - increase insulin to medium-dose regimen. Continues on Solu-Medrol 80 mg IV TID per pulm. Hgb stable at 8.8; plt slightly decreased at 98. Na improved to 142. Ca low at 6.9; albumin 3.0. Check ionized calcium, phosphorus, mg in am. Could also consider checking PTH, Vit D and uric acid levels. 08/09/17 Did ask nursing staff to help reposition patient in bed so that he can breathe easier. Continue with scheduled breathing treatments, patient does require an additional when necessary to help with wheezing. Continues on IV Solu-Medrol for pulmonary inflammation. Today is day 7 of cefepime for pulmonary coverage of Pseudomonas. Weight continues to be up approximately 10 KG from admission. Will discontinue IVF. Overall labs reviewed. Call Out Clerk remains stable at 2.0.
[2017-08-09] MEDS ORDERED: POTASSIUM ACID PHOSPHATE 500 MG TABLET (URINARY ACIDIFIER) PO ONE (15:07)
[2017-08-09] MEDS: POTASSIUM ACID PHOSPHATE 500 MG TABLET (URINARY ACIDIFIER) PO SCH ×2 (18:25→20:47)
[2017-08-09] MEDS: GABAPENTIN 300 MG CAPSULE PO SCH (20:45)
[2017-08-09] MEDS: CALCIUM 600 + VIT D 400 TABLET PO SCH (20:45)
[2017-08-09] MEDS: TAMSULOSIN 0.4 MG CAPSULE PO SCH (20:46)
[2017-08-10] MEDS: METHYLPREDNISOLONE SOD SUCC 125mg/2ml INJECTION IVP SCH ×2 (01:50→08:15)
[2017-08-10] MEDS: SALINE FLUSH 10ml SYRINGE IVF PRN ×2 (01:50→04:43)
[2017-08-10] MEDS: CEFEPIME 1 GM in NS 50 ML IV SCH ×2 (01:51→13:58)
[2017-08-10] MEDS: HYDROCODONE/APAP 10 MG/325 MG TABLET PO PRN ×3 (01:58→14:01)
[2017-08-10] MEDS: ALBUTEROL/IPRATROPIUM 2.5mg-0.5mg/3ml NEB AEROSOL SCH ×4 (02:02→15:19)
[2017-08-10] MEDS: OMEPRAZOLE 20 MG CAPSULE PO SCH (05:55)
[2017-08-10] MEDS: INSULIN ASPART 100unit/ml INJECTION SQ PRN ×3 (06:05→16:12)
[2017-08-10] MEDS: NS 1,000 ML IV SCH (06:23)
[2017-08-10] MEDS: BUDESONIDE INH.SOLN 0.5mg/2ml NEB AEROSOL SCH (07:04)
[2017-08-10] MEDS: AMLODIPINE 5 MG TABLET PO SCH (08:16)
[2017-08-10] MEDS: NYSTATIN 500,000 units/5 ml ORAL LIQUID PO SCH ×2 (08:16→14:01)
[2017-08-10] MEDS: SENNA + DOCUSATE TABLET PO SCH (08:16)
[2017-08-10] MEDS: CALCIUM 600 + VIT D 400 TABLET PO SCH (08:16)
[2017-08-10] MEDS: POTASSIUM ACID PHOSPHATE 500 MG TABLET (URINARY ACIDIFIER) PO SCH ×2 (08:16→10:59)
[2017-08-10] MEDS: ASPIRIN *EC* 81 MG TABLET PO SCH (08:17)
[2017-08-10] MEDS: DOXAZOSIN 4 MG TABLET PO SCH (08:17)
[2017-08-10] MEDS: ALPRAZolam 0.5 MG TABLET PO PRN (11:11)
--- NOTE | 2017-08-10 11:19 | Pulmonology Progress Note ---
Subjective Principal diagnosis: SOB Interval history: feeling better. still with some cough but less wheeze hoping to discharge home today. like having the neb treatments and would like a machine for home use Exam Vital signs: Temperature 95.8 F L 08/10/17 07:38 Pulse Rate 91 08/10/17 08:00 Respiratory Rate 18 08/10/17 10:37 Blood Pressure 179/77 H 08/10/17 07:46 Pulse Oximetry 97 08/10/17 10:37 Inpatient Medications: Generic Name Dose Route Start Last Admin Trade Name Freq PRN Reason Stop Dose Admin Hydrocodone Bitart/Acetaminophen 1 - 2 tab 08/01/17 14:30 08/10/17 08:17 Valentine 10/325 PO 1 tab Q4H PRN Administration Pain Albuterol/Ipratropium 3 ml 08/04/17 12:00 08/10/17 10:37 Duoneb AEROSOL 3 ml Q4HR RADHA Administration Alprazolam 0.5 mg 08/01/17 10:47 08/10/17 11:11 Xanax PO 0.5 mg BID PRN Administration Anxiety Amlodipine Besylate 5 mg 08/02/17 09:00 08/10/17 08:16 Norvasc PO 5 mg DAILY RADHA Administration Aspirin 81 mg 08/02/17 09:00 08/10/17 08:17 Ecotrin PO 81 mg DAILY RADHA Administration Budesonide 0.5 mg 08/04/17 11:44 08/10/17 07:04 Pulmicort Inhalation AEROSOL 0.5 mg RTBID RADHA Administration Calcium/Vitamin D 1 tab 08/09/17 21:00 08/10/17 08:16 Caltrate + D PO 1 tab BID RADHA Administration Dextrose 20 ml 08/04/17 08:10 D50%W IVP PRN PRN Hypoglycemia Doxazosin Mesylate 4 mg 08/01/17 21:00 08/10/17 08:17 Cardura PO 4 mg BID RADHA Administration Fentanyl 25 mcg 08/04/17 10:47 08/10/17 11:00 Duragesic Patch TD 25 mcg Q72H RADHA Administration Fentanyl Citrate 1 removal 08/04/17 11:00 08/07/17 10:21 Duragesic Patch Removal TD 1 removal Q3D RADHA Administration Gabapentin 300 mg 08/01/17 21:00 08/09/17 20:45 Neurontin PO 300 mg HS RADHA Administration Glucose 37.5 gm 08/04/17 08:10 Glutose 15 PO PRN PRN Hypoglycemia Hydromorphone HCl 2 mg 08/01/17 10:47 08/09/17 12:29 Dilaudid PO 2 mg Q4H PRN Administration Pain Cefepime HCl 1 gm/ Sodium 50 mls @ 200 mls/hr 08/03/17 14:00 08/10/17 02:10 Chloride IV Infused Q12H RADHA Infusion Insulin Aspart 2 - 8 unit 08/08/17 17:26 08/10/17 11:10 Novolog SQ 2 unit SS PRN Administration Hyperglycemia Protocol Levalbuterol HCl 1.25 mg 08/01/17 10:47 08/03/17 08:53 Xopenex 1.25mg/3ml AEROSOL 1.25 mg Q4HR PRN Administration Shortness of air Lorazepam 0.5 mg 08/01/17 10:47 08/09/17 19:55 Ativan Inj IVP 0.5 mg Q4H PRN Administration Anxiety/Air hunger/Agitation Magnesium Hydroxide 30 ml 08/07/17 16:18 Mom PO DAILY PRN Constipation Menthol 1 lozenge 08/01/17 10:47 Ricola Sf MM PRN PRN Cough Methylprednisolone Sodium Succinate 80 mg 08/07/17 17:00 08/10/17 08:15 Solu-Medrol IVP 80 mg Q8HR RADHA Administration Morphine Sulfate 2 mg 08/01/17 10:47 08/09/17 03:22 Morphine Sulfate Inj IVP 2 mg Q2HR PRN Administration Pain /Air hunger Nystatin 5 ml 08/01/17 13:00 08/10/17 08:16 Mycostatin PO 5 ml QID RADHA Administration Omeprazole 20 mg 08/08/17 06:30 08/10/17 05:55 Prilosec PO 20 mg ACB RADHA Administration Oxycodone HCl 20 mg 08/01/17 10:47 Oxycontin PO Q12H PRN Pain Oxycodone HCl 5 mg 08/01/17 10:47 Roxicodone *Ir* PO Q6H PRN Pain Potassium Phosphate 1,000 mg 08/09/17 17:30 08/10/17 10:59 K-Phos Original PO 1,000 mg WMHS RADHA Administration Promethazine HCl/Codeine 5 ml 08/01/17 10:47 Phenergan + Codeine PO Q6HR PRN Cough Senna/Docusate Sodium 1 tab 08/07/17 21:00 08/10/17 08:16 Senna Plus Tablet PO 1 tab BID RADHA Administration Sodium Chloride 10 - 80 ml 08/01/17 08:39 08/10/17 04:43 Iv Flush IVF 50 ml PRN PRN Administration Flushing Sodium Chloride 500 ml 08/04/17 10:48 Normal Saline IV PRN PRN Tamsulosin HCl 0.4 mg 08/06/17 21:00 08/09/17 20:46 Flomax PO 0.4 mg HS RADHA Administration Discontinued Medications Generic Name Dose Route Start Last Admin Trade Name Freq PRN Reason Stop Dose Admin Acetaminophen 650 mg 08/04/17 10:49 08/04/17 12:46 Tylenol PO 08/04/17 10:50 650 mg O ONE Administration Hydrocodone Bitart/Acetaminophen 1 tab 08/01/17 10:47 08/01/17 11:53 Valentine 10/325 PO 1 tab Q4H PRN Administration Pain Albuterol/Ipratropium 3 ml 08/01/17 08:38 08/01/17 08:53 Duoneb AEROSOL 08/01/17 08:39 3 ml O ONE Administration Albuterol/Ipratropium 3 ml 08/01/17 08:45 08/01/17 09:00 Duoneb AEROSOL 08/01/17 08:46 3 ml O ONE Administration Albuterol/Ipratropium 3 ml 08/01/17 11:00 08/04/17 05:08 Duoneb AEROSOL 3 ml RTQID RADHA Administration Diphenhydramine HCl 25 mg 08/04/17 10:48 08/04/17 12:46 Benadryl PO 08/04/17 10:49 25 mg ONCE ONE Administration Furosemide 20 mg 08/02/17 11:05 08/02/17 12:09 Lasix IVP 08/02/17 11:06 20 mg O ONE Administration Furosemide 80 mg 08/03/17 11:23 08/03/17 13:01 Lasix IVP 08/03/17 11:24 Not Given ONCE ONE Furosemide 80 mg 08/03/17 16:30 08/03/17 16:49 Lasix IVP 08/03/17 16:31 80 mg O ONE Administration Sodium Chloride 1,000 mls @ 75 mls/hr 08/01/17 10:47 08/03/17 13:00 1/2 Normal Saline IV Infused .[id number] RADHA Infusion Immune Globulin 25 g/ Sodium 250 mls @ 25 mls/hr 08/02/17 13:00 08/02/17 17: 28 Chloride IV 08/02/17 22:59 Infused O ONE Infusion Sodium Bicarbonate 150 meq/ 1,150 mls @ 125 mls/hr 08/03/17 11:30 08/03/17 16 :10 Dextrose IV Not Given .Q9H12M RADHA Cefepime HCl 2 gm/ Sodium 100 mls @ 200 mls/hr 08/03/17 12:30 08/03/17 17:17 Chloride IV Not Given Q24H RADHA Levofloxacin/Dextrose 750 mg in 150 mls @ 100 mls/hr 08/03/17 12:30 08/03/17 17:17 Levaquin Premix IV Not Given Q72H RADHA Sodium Chloride 1,000 mls @ 500 mls/hr 08/03/17 12:33 08/03/17 15:01 Normal Saline IV 08/03/17 14:32 Infused .Q2H ONE Infusion Levofloxacin/Dextrose 500 mg in 100 mls @ 100 mls/hr 08/03/17 13:00 08/03/17 17:18 Levaquin Premix IV 08/03/17 13:59 Infused O ONE Infusion Levofloxacin/Dextrose 250 mg in 50 mls @ 100 mls/hr 08/04/17 13:00 Levaquin Premix IV Q24H RADHA Vancomycin HCl 1,000 mg/ 250 mls @ 250 mls/hr 08/03/17 18:00 08/05/17 07:07 Sodium Chloride IV Infused Q36H RADHA Infusion Sodium Bicarbonate 150 meq/ 1,000 mls @ 125 mls/hr 08/03/17 20:15 08/04/17 02 :49 Dextrose IV 08/04/17 05:15 125 mls/hr .Q8H RADHA Infusion Sodium Bicarbonate 150 meq/ 1,150 mls @ 125 mls/hr 08/03/17 21:00 08/05/17 12 :38 Dextrose IV Not Given .Q9H12M RADHA Sodium Chloride 1,000 mls @ 75 mls/hr 08/04/17 08:30 08/10/17 06:23 Normal Saline IV Not Given .[id number] RADHA Insulin Aspart 1 - 5 unit 08/04/17 08:10 08/08/17 12:34 Novolog SQ 2 unit SS PRN Administration Hyperglycemia Protocol Levalbuterol HCl 1.25 mg 08/01/17 09:35 08/01/17 09:52 Xopenex 1.25mg/3ml AEROSOL 08/01/17 09:36 1.25 mg O ONE Administration Lidocaine HCl 20 ml 08/06/17 14:00 08/06/17 14:32 Urojet MM 08/06/17 14:01 20 ml O ONE Administration Methylprednisolone Sodium Succinate 125 mg 08/01/17 08:41 08/01/17 08:46 Solu-Medrol IVP 08/01/17 08:42 125 mg O ONE Administration Methylprednisolone Sodium Succinate 125 mg 08/01/17 15:00 08/05/17 14:41 Solu-Medrol IVP 125 mg Q6HR RADHA Administration Methylprednisolone Sodium Succinate 80 mg 08/05/17 16:34 08/07/17 10:10 Solu-Medrol IVP 80 mg Q6HR RADHA Administration Miscellaneous Medication 1 each 08/03/17 12:27 08/03/17 17:17 Pharmacy Consult - Renal Dosing MC 08/03/17 12:28 Not Given O ONE Oseltamivir Phosphate 75 mg 08/01/17 21:00 08/02/17 09:05 Tamiflu PO 08/06/17 09:01 75 mg BID RADHA Administration Oseltamivir Phosphate 30 mg 08/03/17 09:00 08/05/17 09:30 Tamiflu PO 08/05/17 09:01 30 mg DAILY RADHA Administration Pantoprazole Sodium 40 mg 08/03/17 11:27 08/06/17 08:45 Protonix Iv IVP 40 mg BID RADHA Administration Pharmacy Consult 1 each 08/01/17 11:10 Pharmacy Consult - Fall Risk XX 08/01/17 11:11 ONE TIME ONE Potassium Phosphate 1,000 mg 08/09/17 15:07 08/09/17 16:36 K-Phos Original PO 08/09/17 15:08 1,000 mg ONE TIME ONE Administration Sodium Chloride 500 ml 08/04/17 08:05 Normal Saline IV PRN PRN Vancomycin HCl 1 each 08/03/17 12:26 08/05/17 09:46 Pharmacy Consult - Vancomycin 08/03/17 12:27 Not Given O ONE - Constitutional no acute distress - Routine HEENT Exam Head: Present: normocephalic, atraumatic Eye: Absent: conjunctival icterus - Routine Respiratory Exam Present: decreased breath sounds, prolonged expiratory phase - Routine Cardiovascular Exam Present: RRR - Routine Abdominal Exam Present: soft - Urinary Catheter Management Straight Cath placed during this visit: yes, but has since been removed by the nurse Insertion date: 08/06/17 Insertion time: 14:59 Removal date: 08/09/17 Removal time: 06:30 Results - Laboratory Findings Laboratory: Laboratory Results - last 48 hr 08/08/17 08/08/17 08/08/17 12:00 16:56 20:02 WBC RBC Hgb Hct MCV MCH MCHC RDW Std Deviation Plt Count MPV Immature Gran % (Auto) Neut % (Auto) Lymph % (Auto) [place] % (Auto) Eos % (Auto) Baso % (Auto) Neut # (Auto) Lymph # (Auto) [place] # (Auto) Eos # (Auto) Baso # (Auto) Abs Immat Gran (auto) Neutrophils % (Manual) Band Neutrophils % Lymphocytes % (Manual) Monocytes % (Manual) Metamyelocytes % Neutrophils # (Manual) Band Neutrophils # Lymphocytes # (Manual) Monocytes # (Manual) Metamyelocytes # Poikilocytosis Anisocytosis Tear Drop Cells Ovalocytes Helmet Cells Schistocytes RBC Morph Comment Turbidity Sodium Potassium Chloride Carbon Dioxide Anion Gap BUN Creatinine GFR Calculation BUN/Creatinine Ratio Glucose Glucometer 223 240 252 Calculated Osmolality Calcium Ionized Calcium [place] Phosphorus Magnesium Icterus Index Specimen Hemolysis 08/09/17 08/09/17 08/09/17 05:23 05:23 06:19 WBC 9.6 RBC 2.91 L Hgb 8.5 L Hct 26.8 L MCV 92.1 MCH 29.2 MCHC 31.7 RDW Std Deviation 51.9 H Plt Count 96 L MPV 10.6 Immature Gran % (Auto) Not performed Neut % (Auto) Not performed Lymph % (Auto) Not performed [place] % (Auto) Not performed Eos % (Auto) Not performed Baso % (Auto) Not performed Neut # (Auto) Not performed Lymph # (Auto) Not performed [place] # (Auto) Not performed Eos # (Auto) Not performed Baso # (Auto) Not performed Abs Immat Gran (auto) Not performed Neutrophils % (Manual) 93.0 H Band Neutrophils % 2.0 Lymphocytes % (Manual) 2.0 L Monocytes % (Manual) 2.0 Metamyelocytes % 1.0 H Neutrophils # (Manual) 8.9 H Band Neutrophils # 0.2 Lymphocytes # (Manual) 0.2 L Monocytes # (Manual) 0.2 Metamyelocytes # 0.1 Poikilocytosis 2+ Anisocytosis 1+ Tear Drop Cells 1+ Ovalocytes 1+ Helmet Cells 1+ Schistocytes 1+ RBC Morph Comment Abnormal Turbidity < 20 Sodium 144 Potassium 4.7 Chloride 112 H Carbon Dioxide 23 Anion Gap 9 BUN 53.0 H* Creatinine 2.0 H D GFR Calculation 33 BUN/Creatinine Ratio 27 H Glucose 159 H Glucometer 181 Calculated Osmolality 294 H Calcium 6.8 L Ionized Calcium [place] 0.95 L Phosphorus 2.2 L Magnesium 2.1 Icterus Index < 2 Specimen Hemolysis < 15 08/09/17 08/09/17 08/09/17 11:09 13:57 19:56 WBC RBC Hgb Hct MCV MCH MCHC RDW Std Deviation Plt Count MPV Immature Gran % (Auto) Neut % (Auto) Lymph % (Auto) [place] % (Auto) Eos % (Auto) Baso % (Auto) Neut # (Auto) Lymph # (Auto) [place] # (Auto) Eos # (Auto) Baso # (Auto) Abs Immat Gran (auto) Neutrophils % (Manual) Band Neutrophils % Lymphocytes % (Manual) Monocytes % (Manual) Metamyelocytes % Neutrophils # (Manual) Band Neutrophils # Lymphocytes # (Manual) Monocytes # (Manual) Metamyelocytes # Poikilocytosis Anisocytosis Tear Drop Cells Ovalocytes Helmet Cells Schistocytes RBC Morph Comment Turbidity Sodium Potassium Chloride Carbon Dioxide Anion Gap BUN Creatinine GFR Calculation BUN/Creatinine Ratio Glucose Glucometer 222 226 211 Calculated Osmolality Calcium Ionized Calcium [place] Phosphorus Magnesium Icterus Index Specimen Hemolysis 08/10/17 08/10/17 08/10/17 04:40 04:40 05:55 WBC 10.5 RBC 2.99 L Hgb 8.6 L Hct 27.5 L MCV 92.0 MCH 28.8 MCHC 31.3 RDW Std Deviation 52.6 H Plt Count 100 L MPV 11.2 Immature Gran % (Auto) Not performed Neut % (Auto) Not performed Lymph % (Auto) Not performed [place] % (Auto) Not performed Eos % (Auto) Not performed Baso % (Auto) Not performed Neut # (Auto) Not performed Lymph # (Auto) Not performed [place] # (Auto) Not performed Eos # (Auto) Not performed Baso # (Auto) Not performed Abs Immat Gran (auto) Not performed Neutrophils % (Manual) 90.0 H Band Neutrophils % 2.0 Lymphocytes % (Manual) 2.0 L Monocytes % (Manual) 6.0 Metamyelocytes % Neutrophils # (Manual) 9.5 H Band Neutrophils # 0.2 Lymphocytes # (Manual) 0.2 L Monocytes # (Manual) 0.6 Metamyelocytes # Poikilocytosis 2+ Anisocytosis 1+ Tear Drop Cells 1+ Ovalocytes 1+ Helmet Cells 1+ Schistocytes 1+ RBC Morph Comment Abnormal Turbidity < 20 Sodium 145 H Potassium 4.7 Chloride 112 H Carbon Dioxide 23 Anion Gap 10 BUN 52.0 H* Creatinine 2.0 H GFR Calculation 33 BUN/Creatinine Ratio 26 Glucose 191 H Glucometer 190 Calculated Osmolality 298 H Calcium 7.0 L Ionized Calcium [place] Phosphorus 2.1 L Magnesium Icterus Index < 2 Specimen Hemolysis < 15 - Diagnostic Findings Chest x-ray: report reviewed (08/09/17) Assessment and Plan (1) Asthma with exacerbation Status: Acute Assessment and plan: start nebulized albuterol/ipratropium qid at home. Neb machine will be sent to [facility] in [place] and his meds to the local pharmacy in [place]. Current Visit: Yes - Assessment and Plan Acute Hypoxic Respiratory Failure Asthma exacerbation Influenza A NORRIS Sepsis - Time Spent With Patient Total time spent is greater than 50% in coordination of care (as documented) at patient's floor/unit and/or counseling patient: less than 15 minutes
--- NOTE | 2017-08-10 14:10 | Discharge Summary ---
Discharge Information Date of admission: 08/03/17 11:24 Anticipated date of discharge: 08/10/17 Attending Physician: Bernie Oreilly MD Primary care physician: Aston Chau MD Consults: Dr Kerr- pulmonology - Discharge Diagnosis (1) Asthma with exacerbation Status: Acute Asthma exacerbation Influenza type B (POA) Severe sepsis - lactate 3.6 Pneumonia (diagnosed on CT) with Pseudomonas aeruginosa in sputum Acute kidney injury on chronic kidney disease Hyperkalemia (POA) - resolved Hypokalemia (not POA) Chest pain - noncardiac Anemia of chronic disease Acute debility, weakness Thrombocytopenia Immunocompromised secondary to Multiple Myeloma, diagnosed Oct, 2013 HTN CKD stage IV Urinary retention - Quintanilla placed 08/06, dc'd 08/09 OA Chronic pain, narcotic dependent - Procedures Procedures: None - Laboratory Labs: 08/10/17 04:40 08/10/17 04:40 - Microbiology Microbiology 08/03/17 13:11 Port/Picc Blood Culture - Final No Growth After 5 Days 08/03/17 13:16 Port/Picc Blood Culture - Final No Growth After 5 Days 08/03/17 13:42 Sputum, Expectorated Gram Stain - Final 08/03/17 13:42 Sputum, Expectorated Sputum Culture - Final - Radiology Radiology: 08/01/17-chest x-ray- Impression: Stable chest without acute cardiopulmonary disease. 08/02/17-chest x-ray- IMPRESSION: Stable appearance of the chest without acute cardiopulmonary disease. 08/03/17-CT chest- Impression: Scattered parenchymal infiltrates most consistent with pneumonia. 08/03/17-renal sonogram-no evidence of hydronephrosis 08/04/17-chest x-ray- Impression: Stable subtle nodular infiltrates. 08/06/17-chest [id number]: Stable appearance of the chest with airspace disease that is difficult to appreciate radiographically. 08/09/17-chest x-ray- Impression: Stable appearance of the chest. - Pathology None History of Present Illness HPI: Nacho Quarles is a 72 year old male with a hx of asthma and multiple myeloma. Per his sister, Mamie, he's been sick with URI symptoms for almost 2 weeks. He was too sick to get his chemo last week, and he's felt too awful to go see a doctor. He's felt chilled but denies fever. His wheezing started about a week ago, and some days he's using his pro-air inhaler much more than he's supposed too. He complains of occasional mild dizziness (though his sister reports that it's much worse -- he has to steady himself on a stable object for a few minutes after standing). He's felt weak as well (again, his sister later informed me that he's barely been able to get out of bed). He denies any falls or syncope. He's been able to keep up with fluids but hasn't had much of an appetite. No urinary changes. No headache or body aches. He saw Dr. Mcghee on , and he recommended ED evaluation. There he was tachypneic but afebrile and maintaining sats on room air. Labs showed a WBC of 8.3, hgb 9.9. K was elevated at 5.4, BUN 27, and creatinine 2.8. He used to be on epo from his body make up artist, but lately hasn't been able to get it b/c his counts have been too high. CXR was negative for pneumonia or effusions. He was given DuoNeb x2 as well as a Xopenex treatment for his persistent wheezing. Solu-Medrol 125 mg IV was also given. He continued to have symptoms, and the hospitalist department was contacted for admission. Objective Vital signs: Temperature 95.8 F L 08/10/17 07:38 Pulse Rate 91 08/10/17 08:00 Respiratory Rate 18 08/10/17 10:37 Blood Pressure 179/77 H 08/10/17 07:46 Pulse Oximetry 97 08/10/17 10:37 Height/Weight/BMI: Height 1.68 m Weight 72.6 kg Body Mass Index 24.3 - Constitutional Present: well nourished, well developed - Routine HEENT Exam Eye: Present: EOMI ENT: Present: mucous membranes moist, dentition normal - Routine Respiratory Exam Present: CTA bilaterally, diminished air movement (bases) - Routine Cardiovascular Exam Present: RRR, S1, S2. Absent: murmur - Routine Abdominal Exam Present: soft, normoactive bowel sounds, non distended. Absent: tenderness - Routine Extremities Exam Present: normal capillary refill - Routine Skin Exam Present: intact, dry, warm - Routine Neurological Exam Present: alert, oriented X3, CN II-XII intact - Routine Lymphatic Exam Lymphatic: Absent: adenopathy - Routine Psychiatric Exam Present: normal affect, cooperative Hospital Course This is a general summary of the patient's hospital course. For more details refer to the complete medical record. Hospital course: 08/01/17 Admit, observation status, under the hospitalist service. Asthma exacerbation: DuoNeb QID + Xopenex PRN; Solu-Medrol 125 mg Q6h IV -- dc ADELINA d/t immunocompromised state. Check viral respiratory panel. Ativan PRN anxiety/air hunger. Hyperkalemia: IVF. Debility/weakness: Consult PT/OT. Check orthostatics. CKD stage IV: unsure of baseline creatinine. IVF for hydration, recheck in am. Chronic pain: continue home pain meds. Multiple Myeloma: consult Dr. Mcghee. Advanced directives: Sister Светлана is DPOA; would want an attempt at resuscitation. Not interested in discussing end-of-life per sister, who has noted a significant functional decline over the last year. Influenza type A - Tamiflu 75mg BID for treatment 08/02/17 Continue Tamiflu for influenza. Continue IV steroids and breathing treatments - still with wheezing, poor air exchange, and conversational dyspnea. Repeat CXR negative for pneumonia. Sputum positive for pseudomonas - d/w Dr. Meyer - w/o fever or infiltrate on CXR it's most likely colonization. Hyperkalemia increased to 5.9 - IV Lasix given. Repeat BMP in am. Dr. Mcghee recommends IVIG. Hgb decreased from 9.9 to 8.5; platelets also down to 121. Recheck in am. PT eval: they recommend IP PT and home with home health. 08/03/2017 Continue Tamiflu for influenza. Dose decreased due to renal function. Continue IV steroids and breathing treatments - still with wheezing, poor air exchange, and conversational dyspnea. Sputum positive for pseudomonas Consulted Dr. Kerr today regarding asthma exacerbation and positive sputum with Pseudomonas. May need antibiotics. Consider CT chest without contrast if patient able to lie flat. Check EKG and troponin regarding chest pain. (EKG showed normal sinus rhythm) Discussed the patient's chronic kidney disease with worsening creatinine and elevated calcium with Dr. Carl and he recommended D5W with 3 A of bicarbonate to run at 125 an hour and Lasix 1. We'll recheck basic metabolic profile later today. If potassium is not improving he will need transfer to [place] for possible dialysis. He suspects his increased creatinine may be due to ATN caused by his recent influenza illness. We'll check Hemoccults and monitor hemoglobin regarding drop in hemoglobin and increase in BUN. Change to inpatient status secondary to acute kidney injury with hyperkalemia Lactate was obtained and was 3.6. Will give a bolus IV fluid if chest x-ray shows no pulmonary edema. No pulmonary edema on my read. Give 1 L normal saline bolus over 2 hours. Will start cefepime, Vancomycin, Levaquin. Obtain blood cultures 2. 400 of urine was noted on post void bladder scan. Renal ultrasound is pending. 08/04/17 Continue Tamiflu for influenza. Dose decreased due to renal function. Continue IV steroids and breathing treatments - still with wheezing, poor air exchange, dyspnea slightly improved today. Started on vancomycin, cefepime, Levaquin yesterday for severe sepsis/ pneumonia. Blood cultures are pending. Can likely adjust antibiotics for treatment of Pseudomonas pneumonia. ReCheck EKG (this morning's EKG shows normal sinus rhythm) and serial troponin now regarding chest pain. (EKG yesterday showed normal sinus rhythm with normal troponins) Chest x-ray today We'll discuss if transfusion needed with the patient's oncologist Dr. Mcghee Discussed with body make up artist, Dr. Carl and he recommends discontinuation of D5 with bicarbonate and initiating normal saline. 08/05/17 Influenza- Tamiflu completed. Supportive care. Wean steroids down. Continue nebulized medication. Pseudomonal PNA- Continue cefepime. Can discontinue vancomycin. NORRIS/CKD- Follows with Dr. Carl. Hyperkalemia resolved. SCr baseline appears to be around 2.0. Serum osmo remains elevated. Increase IVF to 125ml/hr overnoc. Continue Cardura for now. Anemia, multifactorial- monitor labs. Multiple myeloma- on chemotherapy, s/p BMTx. Per Dr. Mcghee. Continue pain medications per home routine. 08/06/17 Continue with cefepime for antimicrobial coverage. Decrease Solu-Medrol to 62.5mg IV q 12 hours. Continue Neb treatments. Quintanilla placed due to urinary retention. Will start Flomax 0.4mg nightly (in addition to his Cardura) and initiate bladder retraining. Can discontinue Protonix. Encourage ambulation to help strength. 08/07/17 Continue with cefepime for pseudomonal coverage. Pulmonology tapering Solu-Medrol. Recommend Omeprazole since on steroids. Continue bladder retraining. Decrease rate of IVF to 75 mL/hr. BUN 50 and cr 2.5. Weight trending up about 10 kg from admission. Start Senna Plus BID; MOM PRN. Hgb stable at 8.5; Platelets 111. WBC normal at 9.7. 08/08/17 Continue with cefepime for pseudomonal coverage - day #6. Weight is up around 13 kg; IVF have been ongoing for NORRIS -- creatinine improved to 2.2. Repeat CXR. If no diuresis is needed, ABDIRAHMAN Quintanilla. Hyperglycemia secondary to steroids - increase insulin to medium-dose regimen. Continues on Solu-Medrol 80 mg IV TID per pulm. Hgb stable at 8.8; plt slightly decreased at 98. Na improved to 142. Ca low at 6.9; albumin 3.0. Check ionized calcium, phosphorus, mg in am. Could also consider checking PTH, Vit D and uric acid levels. 08/09/17 Did ask nursing staff to help reposition patient in bed so that he can breathe easier. Continue with scheduled breathing treatments, patient does require an additional when necessary to help with wheezing. Continues on IV Solu-Medrol for pulmonary inflammation. Today is day 7 of cefepime for pulmonary coverage of Pseudomonas. Weight continues to be up approximately 10 KG from admission. Will discontinue IVF. Overall labs reviewed. Community Development Manager remains stable at 2.0. 08/10/17- Discharge Patient is seen and examined prior to discharge. Overall, he feels that his breathing has improved. Minimal wheezing. He is comfortably breathing on room air without hypoxia. Case discussed with ladder operator, Dr. Kerr. He recommends home nebulizers including Albuterol/ipratropium QID. Neb machine will be sent to [facility] in [place] and his meds to the local pharmacy in [place]. Otherwise, patient will continue on previous home medications. He was also given Flomax during his hospital stay. His plan is to discharge home with family. He plans to follow-up with primary care provider, Dr. Aston Chau in 1 week [address] Dr. Kerr for ongoing pulmonary care. Time spent with patient: discharge greater than 30 minutes Resuscitation Status: Full Code Discharge Plan - Discharge Disposition Discharge Date: 08/10/17 Disposition: 01 Discharged Home, Self-Care *Condition: Stable Reason For Visit (Visit label in EMR): norris on ckd with increase potassium - Discharge Medications *Discharge Medications: New Tamsulosin [Flomax] 0.4 mg PO HS #30 cap Senna + Docusate [Senna Plus Tablet] 1 tab PO BID tab Potassium Acid Phosphate Tab [K-Phos Original] 1,000 mg PO WMHS tab Continue Oxycodone CR [Oxycontin] 20 mg PO Q12H PRN PRN Reason: Pain Oxycodone HCl 5 - 15 mg PO Q6H PRN PRN Reason: Pain Hydrocodone/APAP 10/325 [[place] 10/325] 1 tab PO Q4H PRN PRN Reason: Pain Gabapentin [Neurontin] 300 mg PO HS FentaNYL PATCH [Duragesic Patch] 1 patch TD Q72H Doxazosin [Cardura] 4 mg PO BID Dexamethasone Po [Decadron] 40 mg PO DAILY Calcium Carbonate/Vitamin D3 [Calcium 600 + Vit D Tablet] 1 tab PO DAILY Aspirin [Aspirin EC] 81 mg PO DAILY Amlodipine [Norvasc] 5 mg PO DAILY Hydromorphone HCl [Dilaudid] 2 mg PO Q4H PRN PRN Reason: Pain ALPRAZolam [Xanax] 0.5 mg PO BID PRN PRN Reason: Anxiety Discontinued Nystatin Oral Liq. [Mycostatin] 5 ml SSW QID - Discharge Packet/Instructions *Diet: Regular diet with 2 gm sodium restriction *Activity: Activity as tolerated *Pain Management/Treatment: Usual home pain medications *Wound Care: N/A Additional Instructions: Use breathing treatments as recommended by Dr. Kerr *Expected Signs/Symptoms: Continued improvement in breathing *Notify Physician if: Fever, chills, increased shortness of breath, chest pain or other concerning symptoms *During Business Hours Contact: Contact Dr. Chau *After Business Hours Contact: Contact Dr Chau *Pending Lab/Results: No Pending Lab - Referrals/Follow Up *Referrals/Follow Up: Rishabh Kerr MD [Physician] - (Please schedule follow up apt for 2 weeks) Aston Chau MD [Family Provider] - - Patient Handouts - Dismissal Complete Discharge Instructions are:: Complete Physician Narrative - Narrative Physician: Bernie Oreilly MD Attestation Narrative: Date: 08/10/17 Time: 1600 I have independently evaluated and examined this patient. I reviewed the chart, the patient's history, and the CIVIL LAWYER/PA's documented findings as above. We discussed and formulated the assessment and plan as above with additions as below: Mr. Quarles reports that he feels much better and there was able to get up and move in the room without difficulty. He denies any difficulty urinating although nursing reports continued post void residuals of about 300 mL. Patient was advised that if he has difficulty voiding he will need to seek medical attention either his primary care physician or in a local emergency room for reassessment. Patient is alert and respirations are nonlabored; there are faint inspiratory crackles posteriorly in both lung ansari two thirds up. Stable for discharge; follow-up with Dr. Mcghee's office next week for repeat blood counts.
[2017-08-10 15:32] VITALS: O2SAT 98
[2017-08-10 15:50] VITALS: BP 150/71; PULSE 98; RESP 22; TEMP 95.9
== END 2017-08-10 17:20 | disposition home or self-care (01) | DRG 871 ==
LOC: ED 08:32 → MED 08:32 → SUATTDRO 10:24 → MED 10:55 → SUATTDRO 08-03 11:24 → MED 08-03 23:23
PROVIDERS: ADMIT Hospitalist; ATTEND Internal Medicine

== ENCOUNTER 2017-12-20 07:53 | Inpatient (IN) ==
--- NOTE | 2017-12-20 08:39 | XRay Report ---
INDICATION: DYSPNEA PROCEDURE: CHEST 2-VIEWS UPRIGHT (PA & LAT) Encounter: Initial Comparison: August 09, 2017 Findings: The lungs are stable in appearance without new focal airspace consolidation. There is no pleural effusion or pneumothorax. The heart size, pulmonary vascularity and mediastinal contours are unchanged. Right IJ port. IMPRESSION: Stable appearance of the chest without acute cardiopulmonary disease. .
[2017-12-20] MEDS ORDERED: ALBUTEROL/IPRATROPIUM 2.5mg-0.5mg/3ml NEB AEROSOL ONE (09:09)
--- OUTSIDE RECORDS SUMMARY | 2017-12-20 09:24 | External Medical Summary | Referral Summary ---
:1945 Author Organization [facility] ([facility]3] Address [address] [place] [address] Care Team Providers Name Role Phone Aston Chau Primary Care Physician Encounter [facility] [id number] Date(s): 12/12/16 - 12/12/16 [address] [facility] [id number] [place] [address] [place] [phone] Discharge Diagnosis: Dyspnea Discharge Diagnosis: Asthma Discharge Diagnosis: Rib pain Discharge Diagnosis: Anxiety Discharge Disposition: 01-Home or Self Care Attending Physician: Domingo Mccain MD Admitting Physician: Domingo Mccain MD Vital Signs Most recent to oldest [Reference Range]: 1 Temperature Oral [35.8-37.3 degC] 36.4 degC (12/12/16 12:59 PM) Peripheral Pulse Rate [60-100 bpm] 62 bpm (12/12/16 4:18 PM) Heart Rate Monitored [60-100 bpm] 64 bpm (12/12/16 3:30 PM) Respiratory Rate [14-20 br/min] 22 br/min *HI* (12/12/16 4:18 PM) Blood Pressure [90-140/60-90 mmHg] 170/82 mmHg *HI* (12/12/16 4:18 PM) Mean Arterial Pressure, Cuff 145 mmHg (12/12/16 3:30 PM) SpO2 99 % (12/12/16 4:18 PM) Problem List Condition Effective Dates Status Health Status Informant Acute pain(Confirmed) Active Acute renal failure(Confirmed) Active patient Alteration in nutrition(Confirmed)1 Active Anemia(Confirmed) Resolved Anxiety(Confirmed)2 Active At risk for infection(Confirmed)3 Active At risk of pressure sore(Confirmed) Active Bowel dysfunction(Confirmed)4 Active Chest pain(Confirmed) Active patient CKD (chronic kidney Resolved disease)(Confirmed) HTN(Confirmed) Resolved Immunosuppression(Confirmed) Resolved Knowledge deficit(Confirmed)5 Active Myeloma(Confirmed) Resolved Pancytopenia - acquired(Confirmed) Resolved Tissue perfusion Active alteration(Confirmed)6 1Problem added automatically by system based on initiation of Alteration in Nutrition Plan of [id number] added automatically by system based on initiation of Anxiety Plan of [id number] added automatically by system based on initiation of At Risk for Infection in Nutrition Planof [id number] added automatically by system based on initiation of Bowel Dysfunction Plan of [id number] added automatically by system based on initiation of Knowledge Deficit Plan of [id number] added automatically by system based on initiation of Tissue Perfusion Cerebral Plan of Care Allergies, Adverse Reactions, Alerts No Known Medication Allergies Medications ALPRAZolam 0.5 mg oral tablet 0.5 mg 1 tabs, Oral, TID, Anxiety, # 24 tabs, 0 Refill(s) Start Date: 12/12/16 Status: Orderedaspirin 81 mg, Oral, Bedtime (once a day), 0 Refill(s) Start Date: 11/15/16 Status: Ordereddexamethasone 4 mg oral tablet 40 mg 10 tabs, Oral, , 0 Refill(s) Start Date: 11/15/16 Status: OrderedDilaudid 0 Refill(s) Start Date: 12/12/16 Status: Ordereddoxazosin 4 mg, Oral, BID, 0 Refill(s) Start Date: 04/21/14 Status: Orderedgabapentin 300 mg oral capsule 300 mg 1 caps, Oral, TID, 0 Refill(s) Start Date: 11/15/16 Status: OrderedLidoderm 5% topical film 1 patches, TransDermal, Daily, # 14 patches, 0 Refill(s) Start Date: 11/16/16 Status: OrderedOTC Calcium OTC Calcium, 1 tab oral daily, 0 Refill(s) Start Date: 11/15/16 Status: OrderedoxyCODONE 5 mg oral tablet 2 -3 tabs, Oral, q4hr, as needed for pain, 2 tablets for moderate pain, 3 tablets for severe pain, #30 tabs, 0 Refill(s) Start Date: 11/16/16 Stop Date: 12/18/16 Status: OrderedProAir HFA 90 mcg/inh inhalation aerosol 2 puffs, Inhalation, QID, as needed for wheezing, 0 Refill(s) Start Date: 12/11/13 Status: OrderedRevlimid 5 mg oral capsule 5 mg 1 caps, Oral, Every other day, Dr. Steve Mcghee, # 30 caps, 0 Refill(s) Start Date: 11/15/16 Status: Ordered Results Blood Gases Most recent to oldest [Reference Range]: 1 pH [7.35-7.45] 7.37 (12/12/16 2:59 PM) pCO2 Art [35-45 mmHg] 40 mmHg (12/12/16 2:59 PM) Bicarbonate [22-26 mEq/L] 22 mEq/L (12/12/16 2:59 PM) Base Excess Art [0-2] -3 *LOW* (12/12/16 2:59 PM) O2 Sat Art [90.0-97.0 %] 99.1 % *HI* (12/12/16 2:59 PM) pO2 Art [80-100 mmHg] 147 mmHg *HI* (12/12/16 2:59 PM) LPM Art 4.0 L/min (12/12/16 2:59 PM) O2 Panel nasal cannula (12/12/16 2:59 PM) Spec Site A. radialis r. (12/12/16 2:59 PM) Hematology Most recent to oldest [Reference Range]: 1 WBC [4.8-10.8 10*3/uL] 6.8 10*3/uL (12/12/16 1:39 PM) RBC [4.60-6.20] 3.18 *LOW* (12/12/16 1:39 PM) Hgb [14.0-18.0 gm/dL] 10.0 gm/dL *LOW* (12/12/16 1:39 PM) Hct [42.0-52.0 %] 31.0 % *LOW* (12/12/16 1:39 PM) MCV [82.0-99.0 fL] 97.5 fL (12/12/16 1:39 PM) MCH [27.0-32.0 pg] 31.4 pg (12/12/16 1:39 PM) MCHC [32.0-36.0 gm/dL] 32.3 gm/dL (12/12/16 1:39 PM) RDW [11.5-14.5 %] 15.9 % *HI* (12/12/16 1:39 PM) Platelet [150-400 10*3/uL] 176 10*3/uL (12/12/16 1:39 PM) MPV [9.4-12.3 fL] 10.2 fL (12/12/16 1:39 PM) Immature Granulocytes [0.0-1.0 %] 0.4 % (12/12/16 1:39 PM) Neutrophils [51-75 %] 50 % *LOW* (12/12/16 1:39 PM) Lymphocytes [20-46 %] 8 % *LOW* (12/12/16 1:39 PM) Monocytes [4-11 %] 17 % *HI* (12/12/16 1:39 PM) Eosinophils [0-4 %] 24 % *HI* (12/12/16 1:39 PM) Basophils [0-2 %] 0 % (12/12/16 1:39 PM) Neutro Absolute [1.90-7.00] 3.39 (12/12/16 1:39 PM) Lymph Absolute [0.80-3.30] 0.52 *LOW* (12/12/16 1:39 PM) [place] Absolute [0.30-1.00] 1.18 *HI* (12/12/16 1:39 PM) Eos Absolute [0.00-0.50] 1.65 *HI* (12/12/16 1:39 PM) Baso Absolute [0.00-0.20] 0.03 (12/12/16 1:39 PM) Nucleated RBC Automated [0 /100 WBC] 0.0 /100 WBC (12/12/16 1:39 PM) Chemistry Most recent to oldest [Reference Range]: 1 Sodium Lvl [136-144 mEq/L] 133 mEq/L *LOW* (12/12/16 1:39 PM) Potassium Lvl [3.6-5.1 mEq/L] 3.8 mEq/L (12/12/16 1:39 PM) Chloride [99-109 mEq/L] 104 mEq/L (12/12/16 1:39 PM) CO2 [22-32 mEq/L] 23 mEq/L (12/12/16 1:39 PM) AGAP [3-20 mEq/L] 6 mEq/L (12/12/16 1:39 PM) BUN [4-20 mg/dL] 36 mg/dL *HI* (12/12/16 1:39 PM) Glucose Lvl [70-100 mg/dL] 117 mg/dL *HI* (12/12/16 1:39 PM) Creatinine Lvl [0.64-1.27 mg/dL] 2.32 mg/dL *HI* (12/12/16 1:39 PM) eGFR [>60 mL/min] 28 mL/min 1 *ABN* (12/12/16 1:39 PM) Calcium Lvl [8.6-10.0 mg/dL] 8.0 mg/dL *LOW* (12/12/16 1:39 PM) Albumin Lvl [3.5-4.8 gm/dL] 3.2 gm/dL *LOW* (12/12/16 1:39 PM) Total Protein [6.1-7.9 gm/dL] 5.9 gm/dL *LOW* (12/12/16 1:39 PM) Globulin [1.9-4.3 gm/dL] 2.7 gm/dL (12/12/16 1:39 PM) ALT [17-63 U/L] 41 U/L (12/12/16 1:39 PM) AST [15-41 U/L] 24 U/L (12/12/16 1:39 PM) Alk Phos [26-104 U/L] 117 U/L *HI* (12/12/16 1:39 PM) Bili Total [0.2-1.2 mg/dL] 0.4 mg/dL 2 (12/12/16 1:39 PM) Troponin [<0.06 ng/mL] <0.05 ng/mL (12/12/16 1:39 PM) 1Result Comment: Multiply eGFR results by 1.21 for race.2Result Comment: Naproxen, specifically the metabolite O-desmethylnaproxen, may cause spurious elevation in Total Bilirubin levels. Immunizations Given and Recorded Vaccine Date Status Refusal Reason immune globulin intravenous1 12/12/14 Given immune globulin intravenous2 05/16/14 Given 1Early/Late Reason: Nursing [id number]/Late Reason: Nursing Judgment Procedures Procedure Date Related Diagnosis Body Site Arterial puncture, withdrawal of blood for 12/12/16 diagnosis Biopsy Bone Marrow1 06/25/14 Examination Under Anesthesia2 06/25/14 Insertion Dialysis Catheter3 04/21/14 Biopsy Bone Marrow4 02/18/14 Examination Under Anesthesia5 02/18/14 Laparoscopic cholecystectomy6 12/12/13 Insertion of Knit-y-oyzx6 11/19/13 Ankle injury8 1auto-populated from documented surgical [id number] from documented surgical [id number] from documented surgical [id number] from documented surgical [id number] from documented surgical [id number] required 2 units of packed red blood cells postoperatively due to his multiple myeloma. Laparoscopy was performed without incident.7power [id number] reports that he had surgery to his left ankle Social History Social History Type Response Smoking Status Never smoker Assessment and Plan No data available for this section
--- OUTSIDE RECORDS SUMMARY | 2017-12-20 09:24 | External Medical Summary | Referral Summary ---
:1945 Author Organization [facility] Address [address] [place] [address] Care Team Providers Name Role Phone Rosa MhimaAston Primary Care Physician Encounter [facility] Date(s): 05/01/17 - 05/03/17 [facility] [address] [place] [address] [place] Discharge Diagnosis: Multiple myeloma Discharge Disposition: 01-Home or Self Care Attending Physician: Genny Montalvo MD Admitting Physician: Jorden Luna MD Referring Physician: Oswaldo Keenan MD Vital Signs Most recent to oldest [Reference Range]: 1 Temperature Oral [35.8-37.3 degC] 36.8 degC (05/03/17 12:00 PM) Temperature Temporal Artery [36.3-37.8 degC] 36.9 degC (05/02/17 4:00 PM) Peripheral Pulse Rate [60-100 bpm] 80 bpm (05/03/17 12:00 PM) Heart Rate Monitored [60-100 bpm] 72 bpm (05/02/17 7:00 PM) Respiratory Rate [14-20 br/min] 18 br/min (05/03/17 12:00 PM) Blood Pressure [90-140/60-90 mmHg] 164/83 mmHg *HI* (05/03/17 12:00 PM) Mean Arterial Pressure, Cuff 110 mmHg (05/03/17 12:00 PM) SpO2 96 % (05/03/17 12:00 PM) Remote Telemetry Ongoing (05/03/17 9:10 AM) Blood Pressure Location Right arm (05/02/17 8:43 PM) Problem List Condition Effective Dates Status Health Status Informant Acute pain(Confirmed) Active Acute renal failure(Confirmed) Active patient Alteration in nutrition(Confirmed)1 Active Anemia(Confirmed) Resolved Anxiety(Confirmed)2 Active At risk for infection(Confirmed)3 Active At risk of pressure sore(Confirmed) Active Bowel dysfunction(Confirmed)4 Active Chest pain(Confirmed) Active patient CKD (chronic kidney Resolved disease)(Confirmed) HTN(Confirmed) Resolved Immunosuppression(Confirmed) Resolved Ineffective airway Active clearance(Confirmed)5 Knowledge deficit(Confirmed)6 Active Myeloma(Confirmed) Resolved Pancytopenia - acquired(Confirmed) Resolved Tissue perfusion Active alteration(Confirmed)7 1Problem added automatically by system based on initiation of Alteration in Nutrition Plan of [id number] added automatically by system based on initiation of Anxiety Plan of [id number] added automatically by system based on initiation of At Risk for Infection in Nutrition Planof [id number] added automatically by system based on initiation of Bowel Dysfunction Plan of Lsdy2Djgubxh added automatically by system based on initiation of Ineffective Airway Clearance Plan of [id number] added automatically by system based on initiation of Knowledge Deficit Plan of [id number] added automatically by system based on initiation of Tissue Perfusion Cerebral Plan of Care Allergies, Adverse Reactions, Alerts No Known Medication Allergies Medications ALPRAZolam 0.5 mg oral tablet 0.5 mg 1 tabs, Oral, TID, as needed for anxiety, 0 Refill(s) Start Date: 05/01/17 Status: Orderedaspirin 81 mg, Oral, Bedtime (once a day), 0 Refill(s) Start Date: 11/15/16 Status: OrderedBenadryl 25 mg oral capsule 25 mg 1 caps, Oral, TID, as needed for allergy symptoms, # 30 caps, 0 Refill(s) , Pharmacy: [facility], 1 caps Oral TID,PRN:as needed for allergy symptoms Start Date: 05/03/17 Status: Ordereddexamethasone 4 mg oral tablet 40 mg 10 tabs, Oral, , 0 Refill(s) Start Date: 11/15/16 Status: Ordereddoxazosin 4 mg, Oral, BID, 0 Refill(s) Start Date: 04/21/14 Status: Orderedgabapentin 300 mg oral capsule 300 mg 1 caps, Oral, TID, 0 Refill(s) Start Date: 11/15/16 Status: OrderedHYDROcodone-acetaminophen 10 mg-325 mg oral tablet 1 tabs, Oral, q4hr, as needed for pain, # 20 tabs, 0 Refill(s) Start Date: 05/03/17 Status: OrderedNorvasc 10 mg oral tablet 10 mg 1 tabs, Oral, Daily, # 30 tabs, 0 Refill(s), Pharmacy: [facility], 1 tabs Oral Daily Start Date: 05/03/17 Status: Orderednystatin 100,000 units/mL oral suspension 500,000 units 5 mL, Oral, QID, X 5 days, # 100 mL, 0 Refill(s), Pharmacy: [facility], 5 mL Oral QID,x5 days Start Date: 05/03/17 Stop Date: 05/08/17 Status: OrderedOTC Calcium OTC Calcium, 1 tab oral daily, 0 Refill(s) Start Date: 11/15/16 Status: OrderedPepcid 20 mg oral tablet 20 mg 1 tabs, Oral, BID, # 10 tabs, 0 Refill(s), Pharmacy: [facility], 1 tabs Oral BID,x5 days Start Date: 05/03/17 Stop Date: 05/08/17 Status: OrderedpredniSONE 20 mg oral tablet 20 mg 1 tabs, Oral, Daily, X 2 days, # 2 tabs, 0 Refill(s), Pharmacy: [facility], 1tabs Oral Daily,x2 days Start Date: 05/03/17 Stop Date: 05/05/17 Status: OrderedProAir HFA 90 mcg/inh inhalation aerosol 2 puffs, Inhalation, QID, as needed for wheezing, 0 Refill(s) Start Date: 12/11/13 Status: Ordered Results Hematology Most recent to oldest [Reference Range]: 1 WBC [4.8-10.8 10*3/uL] 9.4 10*3/uL (05/03/17 7:25 AM) RBC [4.60-6.20] 2.76 *LOW* (05/03/17 7:25 AM) Hgb [14.0-18.0 gm/dL] 8.6 gm/dL *LOW* (05/03/17 7:25 AM) Hct [42.0-52.0 %] 25.8 % *LOW* (05/03/17 7:25 AM) MCV [82.0-99.0 fL] 93.5 fL (05/03/17 7:25 AM) MCH [27.0-32.0 pg] 31.2 pg (05/03/17 7:25 AM) MCHC [32.0-36.0 gm/dL] 33.3 gm/dL (05/03/17 7:25 AM) RDW [11.5-14.5 %] 16.9 % *HI* (05/03/17 7:25 AM) Platelet [150-400 10*3/uL] 102 10*3/uL *LOW* (05/03/17 7:25 AM) MPV [9.4-12.3 fL] 10.5 fL (05/03/17 7:25 AM) Immature Granulocytes [0.0-1.0 %] 0.4 % (05/01/17 2:32 PM) Neutrophils [51-75 %] 69 % (05/01/17 2:32 PM) Lymphocytes [20-46 %] 7 % *LOW* (05/01/17 2:32 PM) Monocytes [4-11 %] 16 % *HI* (05/01/17 2:32 PM) Eosinophils [0-4 %] 8 % *HI* (05/01/17 2:32 PM) Basophils [0-2 %] 0 % (05/01/17 2:32 PM) Neutro Absolute [1.90-7.00] 4.77 (05/01/17 2:32 PM) Lymph Absolute [0.80-3.30] 0.47 *LOW* (05/01/17 2:32 PM) Wolfe Absolute [0.30-1.00] 1.09 *HI* (05/01/17 2:32 PM) Eos Absolute [0.00-0.50] 0.55 *HI* (05/01/17 2:32 PM) Baso Absolute [0.00-0.20] 0.01 (05/01/17 2:32 PM) Nucleated RBC Automated [0 /100 WBC] 0.0 /100 WBC (05/01/17 2:32 PM) Sed Rate [0-15] 35 *HI* (05/01/17 9:37 PM) Chemistry Most recent to oldest [Reference Range]: 1 Sodium Lvl [136-144 mEq/L] 138 mEq/L (05/03/17 7:25 AM) Potassium Lvl [3.6-5.1 mEq/L] 5.1 mEq/L (05/03/17 7:25 AM) Chloride [99-109 mEq/L] 109 mEq/L (05/03/17 7:25 AM) CO2 [22-32 mEq/L] 20 mEq/L *LOW* (05/03/17 7:25 AM) AGAP [3-20 mEq/L] 9 mEq/L (05/03/17 7:25 AM) BUN [4-20 mg/dL] 59 mg/dL *HI* (05/03/17 7:25 AM) Glucose Lvl [70-100 mg/dL] 123 mg/dL *HI* (05/03/17 7:25 AM) Creatinine Lvl [0.64-1.27 mg/dL] 2.32 mg/dL *HI* (05/03/17 7:25 AM) eGFR [>60 mL/min] 28 mL/min 1 *ABN* (05/03/17 7:25 AM) Calcium Lvl [8.6-10.0 mg/dL] 7.9 mg/dL *LOW* (05/03/17 7:25 AM) Albumin Lvl [3.5-4.8 gm/dL] 3.5 gm/dL (05/01/17 2:32 PM) Total Protein [6.1-7.9 gm/dL] 5.8 gm/dL *LOW* (05/01/17 2:32 PM) Globulin [1.9-4.3 gm/dL] 2.3 gm/dL (05/01/17 2:32 PM) ALT [17-63 U/L] 65 U/L *HI* (05/01/17 2:32 PM) AST [15-41 U/L] 44 U/L *HI* (05/01/17 2:32 PM) Alk Phos [26-104 U/L] 77 U/L (05/01/17 2:32 PM) Bili Total [0.2-1.2 mg/dL] 0.5 mg/dL 2 (05/01/17 2:32 PM) 1Result Comment: Multiply eGFR results by 1.21 for race.2Result Comment: Naproxen, specifically the metabolite O-desmethylnaproxen, may cause spurious elevation in Total Bilirubin levels. Immunizations Given and Recorded Vaccine Date Status Refusal Reason immune globulin intravenous1 05/16/14 Given immune globulin intravenous2 05/16/14 Given 1Early/Late Reason: Nursing Ksyxytsi4Bxxyx/Late Reason: Nursing Judgment Procedures Procedure Date Related Diagnosis Body Site Biopsy Bone Marrow1 06/25/14 Examination Under Anesthesia2 06/25/14 Insertion Dialysis Catheter3 04/21/14 Biopsy Bone Marrow4 02/18/14 Examination Under Anesthesia5 02/18/14 Laparoscopic cholecystectomy6 12/12/13 Insertion of Lkak-o-fjpp8 11/19/13 Ankle injury8 1auto-populated from documented surgical degp6pjzm-wnpbqsdjp from documented surgical [id number] from documented surgical kozf1bkrd-meovkvcuk from documented surgical cfhd8rsoe-exfylrgae from documented surgical magv4Oc required 2 units of packed red blood cells postoperatively due to his multiple myeloma. Laparoscopy was performed without incident.7power kwyr3Gx reports that he had surgery to his left ankle Social History Social History Type Response Smoking Status Never smoker entered on: 12/11/13
--- OUTSIDE RECORDS SUMMARY | 2017-12-20 09:24 | External Medical Summary | Referral Summary ---
:1945 Author Organization [facility] Address [address] [place] [address] Care Team Providers Name Role Phone No PCP, Pt States Primary Care Physician Encounter [facility] [id number] Date(s): 11/14/16 - 11/16/16 [facility] [address] [place] [address] Discharge Disposition: 01-Home or Self Care Attending Physician: Ingrid Feldman MD Admitting Physician: Ingrid Feldman MD Vital Signs Most recent to oldest [Reference Range]: 1 2 Temperature Oral [35.8-37.3 degC] 36.6 degC (11/14/16 11:08 PM) Temperature Temporal Artery [36.3-37.8 degC] 36.6 degC 36.5 degC (11/16/16 12:00 PM) (11/16/16 12:00 PM) Peripheral Pulse Rate [60-100 bpm] 63 bpm (11/14/16 11:08 PM) Heart Rate Monitored [60-100 bpm] 67 bpm 68 bpm (11/16/16 12:00 PM) (11/16/16 12:00 PM) Respiratory Rate [14-20 br/min] 35 br/min 0 br/min *HI* *LOW* (11/16/16 12:00 PM) (11/16/16 12:00 PM) Blood Pressure [90-140/60-90 mmHg] 129/87 mmHg 139/78 mmHg (11/16/16 12:00 PM) (11/16/16 12:00 PM) Mean Arterial Pressure, Cuff 97 mmHg (11/16/16 12:00 PM) SpO2 97 % (11/16/16 12:00 PM) Problem List Condition Effective Dates Status [...] initiation of Alteration in Nutrition Plan of [id number] added automatically by system based on initiation of Anxiety Plan of Yhah5Psyemte added automatically by system based on initiation of At Risk for Infection in Nutrition Planof Xmom4Holfrki added automatically by system based on initiation of Bowel Dysfunction Plan of Twgj4Weebtjf added automatically by system based on initiation of Knowledge Deficit Plan of Dssu5Ouvztsd added automatically by system based on initiation of Tissue Perfusion Cerebral Plan of Care Allergies, Adverse Reactions, Alerts No Known Medication Allergies Medications aspirin 81 mg, Oral, Bedtime (once a day), 0 Refill(s) Start Date: 11/15/16 Status: Ordereddexamethasone 4 mg oral tablet 4 mg 1 tabs, Oral, Daily, # 2 tabs, 0 Refill(s) Start Date: 11/17/16 Stop Date: 11/18/16 Status: Ordereddexamethasone 4 mg oral tablet 40 [...] Refill(s) Start Date: 11/15/16 Status: Ordered Results Hematology Most recent to oldest [Reference Range]: 1 WBC [4.8-10.8 10*3/uL] 6.2 10*3/uL (11/15/16 1:45 AM) RBC [4.60-6.20] 3.10 *LOW* (11/15/16 1:45 AM) Hgb [14.0-18.0 gm/dL] 9.8 gm/dL *LOW* (11/15/16 1:45 AM) Hct [42.0-52.0 %] 29.4 % *LOW* (11/15/16 1:45 AM) MCV [82.0-99.0 fL] 94.8 fL (11/15/16 1:45 AM) MCH [27.0-32.0 pg] 31.6 pg (11/15/16 1:45 AM) MCHC [32.0-36.0 gm/dL] 33.3 gm/dL (11/15/16 1:45 AM) RDW [11.5-14.5 %] 15.4 % *HI* (11/15/16 1:45 AM) Platelet [150-400 10*3/uL] 142 10*3/uL *LOW* (11/15/16 1:45 AM) MPV [9.4-12.3 fL] 10.9 fL (11/15/16 1:45 AM) Immature Granulocytes [0.0-1.0 %] 0.5 % (11/15/16 1:45 AM) Neutrophils [51-75 %] 57 % (11/15/16 1:45 AM) Lymphocytes [20-46 %] 15 % *LOW* (11/15/16 1:45 AM) Monocytes [4-11 %] 16 % *HI* (11/15/16 1:45 AM) Eosinophils [0-4 %] 11 % *HI* (11/15/16 1:45 AM) Basophils [0-2 %] 1 % (11/15/16 1:45 AM) Neutro Absolute [1.90-7.00] 3.54 (11/15/16 1:45 AM) Lymph Absolute [0.80-3.30] 0.90 (11/15/16 1:45 AM) Becker Absolute [0.30-1.00] 1.00 (11/15/16 1:45 AM) Eos Absolute [0.00-0.50] 0.68 *HI* (11/15/16 1:45 AM) Baso Absolute [0.00-0.20] 0.04 (11/15/16 1:45 AM) Nucleated RBC Automated [0 /100 WBC] 0.0 /100 WBC (11/15/16 1:45 AM) Coagulation Most recent to oldest [Reference Range]: 1 D-Dimer [0-600 ng{FEU}/mL] 1407 ng{FEU}/mL 1 *HI* (11/15/16 1:45 AM) 1Result Comment: A D Dimer result of <500 ng/mL FEU has a negative predictive value of approximately 100% for the exclusion of DVT and acute PE.Chemistry Most recent to oldest [Reference Range]: 1 Sodium Lvl [136-144 mEq/L] 136 mEq/L (11/16/16 11:13 AM) Potassium Lvl [3.6-5.1 mEq/L] 4.2 mEq/L (11/16/16 11:13 AM) Chloride [99-109 mEq/L] 103 mEq/L (11/16/16 11:13 AM) CO2 [22-32 mEq/L] 25 mEq/L (11/16/16 11:13 AM) AGAP [3-20 mEq/L] 8 mEq/L (11/16/16 11:13 AM) BUN [4-20 mg/dL] 21 mg/dL *HI* (11/16/16 11:13 AM) Glucose Lvl [70-100 mg/dL] 114 mg/dL *HI* (11/16/16 11:13 AM) Creatinine Lvl [0.64-1.27 mg/dL] 2.01 mg/dL *HI* (11/16/16 11:13 AM) eGFR [>60 mL/min] 33 mL/min 1 *ABN* (11/16/16 11:13 AM) Calcium Lvl [8.6-10.0 mg/dL] 8.3 mg/dL *LOW* (11/16/16 11:13 AM) Albumin Lvl [3.5-4.8 gm/dL] 3.6 gm/dL (11/15/16 1:45 AM) Total Protein [6.1-7.9 gm/dL] 4.9 gm/dL *LOW* (11/15/16 1:22 PM) Globulin [1.9-4.3 gm/dL] 2.2 gm/dL (11/15/16 1:45 AM) ALT [17-63 U/L] 33 U/L (11/15/16 1:45 AM) AST [15-41 U/L] 28 U/L (11/15/16 1:45 AM) Alk Phos [26-104 U/L] 84 U/L (11/15/16 1:45 AM) Bili Total [0.2-1.2 mg/dL] 0.4 mg/dL 2 (11/15/16 1:45 AM) Troponin [<0.06 ng/mL] <0.05 ng/mL (11/15/16 1:22 PM) Chol [0-199 mg/dL] 100 mg/dL (11/15/16 7:30 AM) Trig [0-149 mg/dL] 108 mg/dL (11/15/16 7:30 AM) HDL [40-84 mg/dL] 42 mg/dL (11/15/16 7:30 AM) LDL [0-130 mg/dL] 36 mg/dL (11/15/16 7:30 AM) VLDL Cholesterol [0-28 mg/dL] 22 mg/dL (11/15/16 7:30 AM) Cardiac Risk [0.0-5.7] 2.4 (11/15/16 7:30 AM) Hgb A1c [4.1-5.6 %] 6.1 % *HI* (11/15/16 7:30 AM) eAvg Glucose 128.4 mg/dL (11/15/16 7:30 AM) 1Result Comment: Multiply eGFR results by 1.21 for race.2Result Comment: Naproxen, specifically the metabolite O-desmethylnaproxen, may cause spurious elevation in Total Bilirubin levels. Immunizations Given and Recorded Vaccine Date Status Refusal Reason immune globulin intravenous1 05/16/14 Given immune globulin intravenous2 05/16/14 Given 1Early/Late Reason: Nursing [id number]/Late Reason: Nursing Judgment Procedures Procedure Date Related Diagnosis Body Site Biopsy Bone Marrow1 06/25/14 Examination Under Anesthesia2 06/25/14 Insertion Dialysis Catheter3 04/21/14 Biopsy Bone Marrow4 02/18/14 Examination Under Anesthesia5 02/18/14 Laparoscopic cholecystectomy6 12/12/13 Insertion of Yadu-v-gotm1 11/19/13 Ankle injury8 1auto-populated from documented surgical meby0yqlq-jtlokpkry from documented surgical azvu5nvby-jcqwqwupy from documented surgical yygu4etfh-rklggwmbq from documented surgical jkwm4qooi-snixzoymx from documented surgical rmab2Gt required 2 units of packed red blood cells postoperatively due to his multiple myeloma. Laparoscopy was performed without incident.7power mncc9Re reports that he had surgery to his left ankle Social History Social History Type Response Smoking Status Never smoker Assessment and Plan No data available for this section
--- NOTE | 2017-12-20 10:20 | Emergency Department Report ---
General Adult HPI - General Chief complaint: Shortness of Breath/Dyspnea Stated complaint: soa Time Seen by Provider: 12/20/17 09:02 - History of Present Illness HPI narrative: 72-year-old gentleman presents with dyspnea. Patient has multiple myeloma and has been taking treatments for it. He had a treatment yesterday and overnight became short of breath. He feels very fatigued and weak and his nebulizer did not work this morning. He does have a history of asthma/chronic bronchitis which usually responds to the nebulizer. However today it is not. He is not requiring oxygen supplementation at this time. No fever, temp on initial eval was 99.1, however patient states he thinks he had a fever at home earlier. - Related Data Home Medications Medication Instructions Recorded Confirmed ALPRAZolam [Xanax] 0.5 mg PO BID PRN 08/01/17 12/20/17 Amlodipine [Norvasc] 5 mg PO DAILY 08/01/17 12/20/17 Aspirin [Aspirin EC] 81 mg PO DAILY 08/01/17 12/20/17 Calcium Carbonate/Vitamin D3 1 tab PO DAILY 08/01/17 12/20/17 [Calcium 600 + Vit D Tablet] Doxazosin [Cardura] 4 mg PO BID 08/01/17 12/20/17 Gabapentin [Neurontin] 300 mg PO TID 08/01/17 12/20/17 Hydrocodone/APAP 10/325 [[place] 1 tab PO Q4H PRN 08/01/17 12/20/17 10/325] Albuterol HFA Inhaler [Ventolin 1 puff INH PRN 12/20/17 12/20/17 Hfa 90 mcg/actuation] Albuterol Neb (0.083%) [Proventil 7.5 vial AEROSOL Q4H PRN 12/20/17 12/20/17 Neb (0.083%)] Previous Rx's Medication Instructions Recorded Amox/Clav [Augmentin] 500 mg PO BID #8 tab 12/23/17 predniSONE [Prednisone] 40 mg PO DAILY #12 tab 12/23/17 Allergies Allergy/AdvReac Type Severity Reaction Status Date / Time No Known Drug Allergies Allergy Unknown Verified 12/20/17 09:39 Review of Systems All systems: reviewed and negative except as stated PFSH Patient Stated Medical History Cataracts Yes: R cataract removed/ R lens placed Hypertension Yes Asthma Yes Other GI Yes: DIARRHEA Hx Renal Disease Yes Hx Urinary Tract Infection Yes Osteoarthritis Yes Surgical History: 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 Cholecystectomy, Dr. Argueta. PowerPort insertion. Right shoulder arthroscopy. Left lower leg ORIF. Right cataract removed Family History Updates: father of lung cancer (smoker); one sister with colon cancer; another sister with cervical cancer, mother age 82, of cancer (unknown) - Social History Smoking status: Never smoker Substance use type: does not use Alcohol intake frequency: does not drink Household members: none (lives alone but sister (Светлана) lives next door) Current residence: Apartment/Private Home Physical Exam - Limitations Limitations: no limitations - General General appearance: alert, anxious - Normal Exams: Head:: Normocephalic without trauma Eyes:: Pupils are PERRLA w/ EOMI, No scleral icterus, irritation, or foreign bodies noted Abdomen:: Bowel sounds positive, soft, non-tender, non-distended, no hepatosplenomegaly, masses or bruits noted Neurological:: Patient is alert, and oriented, cranial nerves, motor/sensory/ cerebellar, exams w/o gross deficits, to observation - Respiratory Respiratory exam: Present: wheezes, other (tachypnea) - Cardiovascular Cardiovascular exam: Present: normal rhythm, tachycardia, normal heart sounds Course Vital Signs Temperature 99.0 F 12/20/17 07:55 Pulse Rate 86 12/20/17 07:55 Respiratory Rate 28 H 12/20/17 07:55 Blood Pressure 162/74 H 12/20/17 07:55 Pulse Oximetry 97 12/20/17 07:55 Temperature 98.3 F 12/23/17 11:45 Pulse Rate 94 12/23/17 11:45 Respiratory Rate 16 12/23/17 13:42 Blood Pressure 153/74 H 12/23/17 11:45 Pulse Oximetry 98 12/23/17 11:55 Medical Decision Making - [facility] Narrative Medical decision making narrative: DuoNeb 2 ordered immediately. Patient had very minor if any improvement with these. Referral IV and IV fluids started with normal saline. Solu-Medrol 1.5 mg ordered. Lab and chest x-ray ordered chest x-ray shows no infiltrate. White count is normal however creatinine is elevated at 2.9 and is significantly elevated above his baseline. Dehydrated. And was given 1 L normal saline while in the emergency department. Contacted hospitalist to admit for overnight hydration and respiratory care. And patient will be admitted observation. - Differential Diagnosis asthma, COPD, pulmonary embolus - Medical Records Medical records reviewed: Yes: I reviewed the patient's medical records. - Lab Data Lab results reviewed: Yes: I reviewed the patient's lab results. Result diagrams: 12/23/17 04:05 12/23/17 04:05 Lab Results 12/20/17 12/20/17 12/20/17 Range/Units 08:21 08:21 12:53 WBC 5.7 (4.5-11.0) T/MM3 RBC 3.49 L (4.50-5.90) M/MM3 Hgb 10.2 L (13.5-17.5) GM/DL Hct 31.4 L (41-53) % MCV 90.0 (80-100) UM3 MCH 29.2 (26-34) UUG MCHC 32.5 (31-37) GM/DL RDW Std Deviation 48.3 (36.9-50.2) FL Plt Count 108 L (130-400) T/MM3 MPV 11.7 (9.4-12.4) UM3 Immature Gran % (Auto) 0.2 (0.0-0.5) % Neut % (Auto) 82.1 H (33-66) % Lymph % (Auto) 9.5 L (23-45) % [place] % (Auto) 7.8 (0-9.0) % Eos % (Auto) 0.2 (0-4) % Baso % (Auto) 0.2 (0-2) % Neut # (Auto) 4.7 (1.8-7.7) T/MM3 Lymph # (Auto) 0.5 L (1-4.8) T/MM3 [place] # (Auto) 0.4 (0-0.8) T/MM3 Eos # (Auto) 0.0 (0-0.5) T/MM3 Baso # (Auto) 0.0 (0-0.2) T/MM3 Abs Immat Gran (auto) 0.01 (0.00-0.03) T/MM3 Neutrophils % (Manual) (33-66) % Band Neutrophils % (0-6) % Lymphocytes % (Manual) (23-45) % Monocytes % (Manual) (0-9.0) % Neutrophils # (Manual) (1.8-7.7) T/MM3 Band Neutrophils # T/MM3 Lymphocytes # (Manual) (1-4.8) T/MM3 Monocytes # (Manual) (0-0.8) T/MM3 Nucleated RBCs Poikilocytosis Anisocytosis Tear Drop Cells Ovalocytes RBC Morph Comment D-Dimer (0-230) NG/ML Turbidity < 20 (0-20) Sodium 138 (136-146) MEQ/L Potassium 4.8 (3.6-5) MEQ/L Chloride 106 (98-107) MEQ/L Carbon Dioxide 19 L (22-30) MEQ/L Anion Gap 13 (5-15) meq/L BUN 40.0 H (9-20) MG/DL Creatinine 2.9 H (0.8-1.5) mg/dL GFR Calculation 21 BUN/Creatinine Ratio 14 (6-26) RATIO Glucose 102 (75-110) MG/DL Calculated Osmolality 276 (261-280) MOSM/KG Calcium 8.6 (8.4-10.2) MG/DL Total Bilirubin 0.20 (0.20-1.30) MG/DL Icterus Index < 2 (0-7) AST 36 (17-59) U/L ALT 18 (1-50) U/L Alkaline Phosphatase 75 (38-126) U/L Troponin I < 0.012 (0-0.12) ng/ml NT-Pro-B Natriuret Pep 537 H (0-175) pg/mL Total Protein 6.2 L (6.3-8.2) g/dL Albumin 4.0 (3.5-5.0) g/dL Globulin 2.2 L (2.4-3.6) G/DL Albumin/Globulin Ratio 1.8 (1.1-2.2) RATIO Plasma Lactate 0.9 1.0 (0.6-2.2) MMOL/L Specimen Hemolysis < 15 (0-25) Ur Collection Type Urine Color (YELLOW) Urine Clarity Urine pH (5.0-8.0) Ur Specific [place] (1.015-1.025) Urine Protein (NEGATIVE) Urine Glucose (UA) (NEGATIVE) Urine Ketones (NEGATIVE) Urine Occult Blood (NEGATIVE) Urine Nitrate (NEGATIVE) Urine Bilirubin (NEGATIVE) Urine Urobilinogen (NORMAL) EU/DL Ur Leukocyte Esterase (NEGATIVE) Urine RBC (0-3) /HPF Urine WBC (0-5) /HPF Ur Squamous Epith Cells Urine Bacteria (NEGATIVE) Ur Culture Indicated? Ur Random Creatinine MG/DL Ur Random Sodium (36-102) MEQ/L 12/20/17 12/20/17 12/21/17 Range/Units 13:37 13:37 04:45 WBC 5.7 (4.5-11.0) T/MM3 RBC 3.69 L (4.50-5.90) M/MM3 Hgb 10.6 L (13.5-17.5) GM/DL Hct 32.8 L (41-53) % MCV 88.9 (80-100) UM3 MCH 28.7 (26-34) UUG MCHC 32.3 (31-37) GM/DL RDW Std Deviation 47.5 (36.9-50.2) FL Plt Count 90 L (130-400) T/MM3 MPV 12.5 H (9.4-12.4) UM3 Immature Gran % (Auto) Not performed (0.0-0.5) % Neut % (Auto) Not performed (33-66) % Lymph % (Auto) Not performed (23-45) % [place] % (Auto) Not performed (0-9.0) % Eos % (Auto) Not performed (0-4) % Baso % (Auto) Not performed (0-2) % Neut # (Auto) Not performed (1.8-7.7) T/MM3 Lymph # (Auto) Not performed (1-4.8) T/MM3 [place] # (Auto) Not performed (0-0.8) T/MM3 Eos # (Auto) Not performed (0-0.5) T/MM3 Baso # (Auto) Not performed (0-0.2) T/MM3 Abs Immat Gran (auto) Not performed (0.00-0.03) T/MM3 Neutrophils % (Manual) 81.0 H (33-66) % Band Neutrophils % 12.0 H D (0-6) % Lymphocytes % (Manual) 5.0 L (23-45) % Monocytes % (Manual) 2.0 (0-9.0) % Neutrophils # (Manual) 4.6 (1.8-7.7) T/MM3 Band Neutrophils # 0.7 T/MM3 Lymphocytes # (Manual) 0.3 L (1-4.8) T/MM3 Monocytes # (Manual) 0.1 (0-0.8) T/MM3 Nucleated RBCs 1 Poikilocytosis 1+ Anisocytosis 1+ Tear Drop Cells 1+ Ovalocytes 1+ RBC Morph Comment Abnormal D-Dimer (0-230) NG/ML Turbidity (0-20) Sodium (136-146) MEQ/L Potassium (3.6-5) MEQ/L Chloride (98-107) MEQ/L Carbon Dioxide (22-30) MEQ/L Anion Gap (5-15) meq/L BUN (9-20) MG/DL Creatinine (0.8-1.5) mg/dL GFR Calculation BUN/Creatinine Ratio (6-26) RATIO Glucose (75-110) MG/DL Calculated Osmolality (261-280) MOSM/KG Calcium (8.4-10.2) MG/DL Total Bilirubin (0.20-1.30) MG/DL Icterus Index (0-7) AST (17-59) U/L ALT (1-50) U/L Alkaline Phosphatase (38-126) U/L Troponin I (0-0.12) ng/ml NT-Pro-B Natriuret Pep (0-175) pg/mL Total Protein (6.3-8.2) g/dL Albumin (3.5-5.0) g/dL Globulin (2.4-3.6) G/DL Albumin/Globulin Ratio (1.1-2.2) RATIO Plasma Lactate (0.6-2.2) MMOL/L Specimen Hemolysis (0-25) Ur Collection Type Urine, void-cc/notcc Urine Color Yellow (YELLOW) Urine Clarity Clear Urine pH 6.0 (5.0-8.0) Ur Specific [place] 1.015 (1.015-1.025) Urine Protein 1+ A (NEGATIVE) Urine Glucose (UA) Negative (NEGATIVE) Urine Ketones Negative (NEGATIVE) Urine Occult Blood Trace-intact (NEGATIVE) Urine Nitrate Negative (NEGATIVE) Urine Bilirubin Negative (NEGATIVE) Urine Urobilinogen 0.2 (NORMAL) EU/DL Ur Leukocyte Esterase Negative (NEGATIVE) Urine RBC 0-1 (0-3) /HPF Urine WBC 0-1 (0-5) /HPF Ur Squamous Epith Cells 0-5 Urine Bacteria 1+ H (NEGATIVE) Ur Culture Indicated? Cult not indicated Ur Random Creatinine 94.4 MG/DL Ur Random Sodium 23 L (36-102) MEQ/L 12/21/17 12/21/17 Range/Units 04:45 04:45 WBC (4.5-11.0) T/MM3 RBC (4.50-5.90) M/MM3 Hgb (13.5-17.5) GM/DL Hct (41-53) % MCV (80-100) UM3 MCH (26-34) UUG MCHC (31-37) GM/DL RDW Std Deviation (36.9-50.2) FL Plt Count (130-400) T/MM3 MPV (9.4-12.4) UM3 Immature Gran % (Auto) (0.0-0.5) % Neut % (Auto) (33-66) % Lymph % (Auto) (23-45) % [place] % (Auto) (0-9.0) % Eos % (Auto) (0-4) % Baso % (Auto) (0-2) % Neut # (Auto) (1.8-7.7) T/MM3 Lymph # (Auto) (1-4.8) T/MM3 [place] # (Auto) (0-0.8) T/MM3 Eos # (Auto) (0-0.5) T/MM3 Baso # (Auto) (0-0.2) T/MM3 Abs Immat Gran (auto) (0.00-0.03) T/MM3 Neutrophils % (Manual) (33-66) % Band Neutrophils % (0-6) % Lymphocytes % (Manual) (23-45) % Monocytes % (Manual) (0-9.0) % Neutrophils # (Manual) (1.8-7.7) T/MM3 Band Neutrophils # T/MM3 Lymphocytes # (Manual) (1-4.8) T/MM3 Monocytes # (Manual) (0-0.8) T/MM3 Nucleated RBCs Poikilocytosis Anisocytosis Tear Drop Cells Ovalocytes RBC Morph Comment D-Dimer 451 H (0-230) NG/ML Turbidity < 20 (0-20) Sodium 139 (136-146) MEQ/L Potassium 4.7 (3.6-5) MEQ/L Chloride 109 H (98-107) MEQ/L Carbon Dioxide 19 L (22-30) MEQ/L Anion Gap 11 (5-15) meq/L BUN 45.0 H (9-20) MG/DL Creatinine 2.5 H D (0.8-1.5) mg/dL GFR Calculation 25 BUN/Creatinine Ratio 18 (6-26) RATIO Glucose 165 H (75-110) MG/DL Calculated Osmolality 284 H (261-280) MOSM/KG Calcium 8.1 L (8.4-10.2) MG/DL Total Bilirubin (0.20-1.30) MG/DL Icterus Index < 2 (0-7) AST (17-59) U/L ALT (1-50) U/L Alkaline Phosphatase (38-126) U/L Troponin I (0-0.12) ng/ml NT-Pro-B Natriuret Pep (0-175) pg/mL Total Protein (6.3-8.2) g/dL Albumin (3.5-5.0) g/dL Globulin (2.4-3.6) G/DL Albumin/Globulin Ratio (1.1-2.2) RATIO Plasma Lactate (0.6-2.2) MMOL/L Specimen Hemolysis < 15 (0-25) Ur Collection Type Urine Color (YELLOW) Urine Clarity Urine pH (5.0-8.0) Ur Specific [place] (1.015-1.025) Urine Protein (NEGATIVE) Urine Glucose (UA) (NEGATIVE) Urine Ketones (NEGATIVE) Urine Occult Blood (NEGATIVE) Urine Nitrate (NEGATIVE) Urine Bilirubin (NEGATIVE) Urine Urobilinogen (NORMAL) EU/DL Ur Leukocyte Esterase (NEGATIVE) Urine RBC (0-3) /HPF Urine WBC (0-5) /HPF Ur Squamous Epith Cells Urine Bacteria (NEGATIVE) Ur Culture Indicated? Ur Random Creatinine MG/DL Ur Random Sodium (36-102) MEQ/L - Radiology Data Radiology results reviewed: Yes: I reviewed the patient's radiology results. Disposition Clinical Impression: Dehydration, Dyspnea Disposition: 02 To [facility] Condition: Improved Time of Disposition: 17:50 - Seen By: physician
[2017-12-20] MEDS ORDERED: FentaNYL 100 MCG/2 ML INJECTION IVP PRN (10:24)
[2017-12-20] MEDS ORDERED: METHYLPREDNISOLONE SOD SUCC 125mg/2ml INJECTION IVP ONE (10:28)
[2017-12-20] MEDS: SALINE FLUSH 10ml SYRINGE IVF PRN (10:37)
[2017-12-20] MEDS ORDERED: HYDROMORPHONE 2 MG/ML INJECTION IVP ONE (11:56)
[2017-12-20] MEDS ORDERED: ONDANSETRON 4 MG/2 ML INJECTION IVP ONE (12:00)
[2017-12-20] MEDS: NS 1,000 ML IV SCH (12:00)
[2017-12-20] MEDS ORDERED: ACETAMINOPHEN 325 MG TABLET PO PRN (12:11)
[2017-12-20] MEDS ORDERED: ONDANSETRON 4 MG/2 ML INJECTION IVP PRN (12:11)
--- NOTE | 2017-12-20 12:35 | History & Physical Report ---
History of Present Illness Date: 12/20/17 Chief complaint: acute dyspnea, dehydration HPI: Yury Quarles (Ronnie) is a pleasant 72-year-old male patient of Dr. Aston Chau who presented to [facility] ED today, 12/20/17, for evaluation of acute dyspnea and generalized weakness. He has a history of asthma and multiple myeloma. He follows with Dr. Mcghee for his multiple myeloma. He reports that he has been feeling great and was seen at Dr. Mcghee's office on 12/19/17 for his weekly "treatment" for his multiple myeloma. He reports that Dr. Mcghee changed his pain medication, starting him on Oxycontin 30mg BID due to his persistent pain. He begin his new medication last night, 12/19/17, before bed. He reports that he woke up around 2100 because he was vomiting. He contemplated coming to the ED last night but ultimately decided to stay home to see if his symptoms would improve. He also reports feeling increasingly short of breath last night. His vomiting resolved after the one episode but he progressively became short of breath despite utilizing his home nebulizer and albuterol treatments. Due to his symptoms, Dr. Mcghee recommended he be evaluated in the ED due to concerns about possible PE. He denies any recent illness, fevers, chills, abdominal pain , diarrhea or dysuria. He does admit to a chronic "morning cough" which is usually productive but denies any new cough or congestion. Upon arrival to the ED, he was found to have a temperature of 99.0, tachycardia (HR 109), tachypnea (RR 28) with pulse ox of 95% on room air. Labs were obtained and revealed chronic anemia (hgb 10.2), chronic thrombocytopenia (Plt 108) and stable WBC. Electrolytes were unremarkable. SCr and BUN were elevated at 2.9 and 40 respectively - baseline SCr 2.0. He states that he has seen a power plant electrician in [place] previously but is unable to recall whom. EKG showed NSR at a rate of 93. CXR revealed stable appearance of the chest without acute cardiopulmonary disease. While in the ED, he received a double dose breathing treatment with DuoNeb and Solu-Medrol 125mg IV without significant improvement. Due to his acute dyspnea and generalized weakness, Dr. Oreilly was consulted and he was admitted into observation status for further evaluation, close respiratory monitoring and IV hydration. Due to his elevated renal function, CT angio for PE was unable to be obtained so he will require a VQ scan for further evaluation given concern of PE. Review of Systems All systems PM: 10-point ROS was reviewed, no additional remarkable complaints except - Constitutional Constitutional: Present: fatigue, fever(s) (subjective), weakness (generalized) . Absent: anorexia, chills, headache(s) - EENMT Eyes: Absent: diplopia, loss of vision, photophobia Ears: Absent: ear pain Balance: Absent: falling to one side Nose: Absent: nosebleeds Mouth/Throat: Present: dry mouth. Absent: sore throat, changes in swallowing - Cardiovascular Cardiovascular: Present: dyspnea on exertion. Absent: palpitations, syncope, edema Rhythm: Present: regular rhythm Vascular: Absent: pallor of an extermity, pedal edema, unilateral swelling Cardiovascular Comments: chest wall pain secondary to recent injury while shooting a bow and arrow. - Respiratory Respiratory: Present: cough, dyspnea, hemoptysis, dyspnea on exertion, wheezing , pain on inspiration. Absent: chest congestion, excessive phlegm production - Gastrointestinal Gastrointestinal: Present: nausea, vomiting (resolved prior to admission). Absent: abdominal pain, diarrhea, hematochezia, melena - Genitourinary Genitourinary: Absent: dysuria, flank pain, hematuria - Musculoskeletal Musculoskeletal: Present: back pain, muscle weakness (generalized). Absent: deformity - Integumentary/Breasts Integumentary: Absent: rash - Neurological Neurological: Present: weakness. Absent: confusion, dizziness, focal weakness, vertigo - Psychiatric Psychiatric: Present: anxiety. Absent: behavioral changes - Endocrine Endocrine: Absent: flushing, heat intolerance, palpitations - Hematologic/Lymphatic Hematologic/Lymphatic: Absent: easy bruising - Allergic/Immunologic Allergic/Immunologic: Absent: seasonal rhinorrhea Past Medical History Medical History Updates: Multiple Myeloma, diagnosed Oct, 2013, on chemotherapy , s/p bone marrow transplant. Hypertension. Chronic kidney disease, stage IV. Asthma. Anemia of chronic disease. Osteoarthritis. Chronic pain - narcotic dependent. Surgical History: Bone marrow transplant - 2014. Cholecystectomy - Dr. Argueta. PowerPort insertion. Right shoulder arthroscopy. Left lower leg ORIF. Right cataract removed. Family History: Father of lung cancer (smoker); one sister with colon cancer; another sister with cervical cancer, mother age 82, of cancer (unknown). Family History: As Above - Social History Smoking status: Never smoker Substance use type: does not use Alcohol intake frequency: former alcohol drinker (quit 2013) Housing: house Household members: none (sister lives next door) Current occupational status: retired Does patient use chewing tobacco?: No Current residence: Apartment/Private Home Social history: PCP - Dr. Aston Chau. Onc - Dr. Mcghee. Patient reports having a power plant electrician in [place], though is unable to recall whom. Medications Home Medications Medication Instructions Recorded Confirmed Type ALPRAZolam [Xanax] 0.5 mg PO BID PRN 08/01/17 12/20/17 History Amlodipine [Norvasc] 5 mg PO DAILY 08/01/17 12/20/17 History Aspirin [Aspirin EC] 81 mg PO DAILY 08/01/17 12/20/17 History Calcium Carbonate/Vitamin D3 1 tab PO DAILY 08/01/17 12/20/17 History [Calcium 600 + Vit D Tablet] Doxazosin [Cardura] 4 mg PO BID 08/01/17 12/20/17 History Gabapentin [Neurontin] 300 mg PO TID 08/01/17 12/20/17 History Hydrocodone/APAP 10/325 [[place] 1 tab PO Q4H PRN 08/01/17 12/20/17 History 10/325] Albuterol HFA Inhaler [Ventolin 1 puff INH PRN 12/20/17 12/20/17 History Hfa 90 mcg/actuation] Albuterol Neb (0.083%) [Proventil 7.5 vial AEROSOL Q4H PRN 12/20/17 12/20/17 History Neb (0.083%)] Oxycodone HCl [Oxycontin] 30 mg PO BID PRN 12/20/17 12/20/17 History Allergies Allergy/AdvReac Type Severity Reaction Status Date / Time No Known Drug Allergies Allergy Unknown Verified 12/20/17 09:39 Exam Vital Signs: Temperature 97.8 F 12/20/17 12:14 Pulse Rate 89 12/20/17 12:14 Respiratory Rate 20 12/20/17 12:14 Blood Pressure 146/74 H 12/20/17 12:14 Pulse Oximetry 96 12/20/17 12:14 Telemetry Rhythm: Sinus Tachycardia Height/Weight/BMI: Height 5 ft 6 in Weight 124 lb 12.506 oz Body Mass Index 20.1 Comments: Patient is seen immediately upon arrival to the room with nursing present. His sister is not present on initial exam. - Constitutional Present: mild distress (complains of severe right hip and leg pain.), well nourished, well developed, thin, cooperative - Routine HEENT Exam Head: Present: normocephalic, atraumatic Eye: Present: PERRL. Absent: conjunctival icterus ENT: Present: mucous membranes dry, oropharynx clear - Routine Neck Exam Present: supple, full ROM, trachea midline - Routine Chest/Breast/Axilla Exam Chest wall: Present: tenderness (generalized) Comments: Power port in place to right upper chest. - Routine Respiratory Exam Present: dyspnea, decreased breath sounds, prolonged expiratory phase, respiratory distress (mild), wheezes, diminished air movement Comments: Audible wheezing; no cough; mild conversational dyspnea, tachypnea. - Routine Cardiovascular Exam Present: RRR, S1, S2, no murmur - Routine Abdominal Exam Present: soft, normoactive bowel sounds, non tender - Routine Extremities Exam Present: no edema, pulses intact, normal capillary refill - Routine Back/Spine/Pelvis Exam Back/Spine: Present: full ROM. Absent: vertebral tenderness - Routine Skin Exam Present: intact, dry, warm Comments: Afebrile; very [place]. - Routine Neurological Exam Present: alert, oriented X3, moving all extremities, hearing grossly intact, normal speech - Routine Psychiatric Exam Present: normal affect, cooperative Results - Labs CBC & Chem 7: 12/20/17 08:21 12/20/17 08:21 Microbiology Results: Microbiology 12/20/17 08:21 Port/Picc Blood Culture - Preliminary Culture Initiated - Results Pending 12/20/17 08:21 Port/Picc Blood Culture - Preliminary Culture Initiated - Results Pending - Impressions Date of Exam: 12/20/17 Type of Exam(s): XR chest 2V Reason for Exam(s): DYSPNEA Findings: The lungs are stable in appearance without new focal airspace consolidation. There is no pleural effusion or pneumothorax. The heart size, pulmonary vascularity and mediastinal contours are unchanged. Right IJ port. IMPRESSION: Stable appearance of the chest without acute cardiopulmonary disease. Assessment and Plan (1) Acute respiratory distress Current visit: Yes Status: Acute Assessment and Plan: Assessment: Acute dyspnea with respiratory distress, present on admission. Questionable asthma exacerbation vs. PE vs. aspiration pneumonia Generalized weakness. Nausea/vomiting Acute kidney injury Possible medication reaction to oxycodone 30mg. Multiple Myeloma, diagnosed Oct, 2013, on chemotherapy, s/p bone marrow transplant. Hypertension. Chronic kidney disease, stage IV. Asthma. Anemia of chronic disease. Osteoarthritis. Chronic pain - narcotic dependent. Plan - 12/20/17: Admit to observation status under the care of Dr. Oreilly. CXR in ED was unremarkable. Given concern for possible PE, will obtain VQ scan now - results pending. Labs in ED revealed stable chronic anemia and thrombocytopenia. Monitor blood counts closely. Slight increase in SCr at 2.9 (baseline 2.0). Initiate hydration with NS 100cc/ hr. Monitor urinary output closely as well as signs of fluid overload. Monitor closely on telemetry. Consult RT and initiate RT algorithm for treatment. Oxygen as needed to maintain SAO2 >90%. Patient has previously seen Dr. Kerr during hospitalization in 07/2017 - recommended DuoNeb treatments QID at home. Continue DuoNeb treatments QID and PRN. Solu-Medrol 125mg IV given in ED. Will continue Q6H given wheezing. Consider pulmonary consult for additional treatment recommendations. Will continue home medications - hold home oxycodone 30mg given symptoms may be secondary to drug reaction. Morphine 2mg IV Q2-3 hours PRN additional pain control. Concern for possible aspiration given patient's report of vomiting last evening. Monitor closely. Recheck labs in AM to monitor blood counts, electrolytes and renal function. Upon discharge, patient's care will be returned to his PCP, Dr. Chau. Patient is a full code. DVT Prophylaxis: SCD's Resuscitation Status: Full Code - Time spent with patient Time with patient PN: 70 minutes - Physician Narrative Physician: Bernie Oreilly MD Narrative: Date: 12/20/17 Time: 2139 I have independently evaluated and examined this patient. I reviewed the chart, the patient's history, and the JEWELLERY DESIGNER/PA's documented findings as above. We discussed and formulated the assessment and plan as above with additions as below: Mr. Quarles was seen with the sister at bedside. He received chemotherapy yesterday with Velcade and later it in the day developed nausea and vomiting after an initial dose of oxycodone. Thereafter he developed increasing respiratory distress without hypoxia but was tachypneic and tachycardic on presentation to the emergency room earlier today prompting concern for PE. Due to renal insufficiency and multiple myeloma CTA chest could not be obtained and the patient was hospitalized for further management. The patient reports that he has had increased purulent sputum production and cough overnight persisting through the day in addition to increasing wheezing. Patient denies calf pain or swelling. Uncomfortable appearing male Respirations were nonlabored at the time of my evaluation and airflow was good but breath sounds were coarse with wheezing present bilaterally. Regular rhythm, S1-S2 WBC 5.7, creatinine 2.9 (2.0 in August of this year) Chest x-ray reviewed by myself revealing right IJ port without evidence of focal infiltrate. VQ scan with matched perfusion/ventilation defects-intermediate probability per radiology report Acute kidney injury likely present in conjunction with possible aspiration pneumonitis. Matched defects on VQ scan-acute PE unlikely. Unasyn initiated for respiratory symptoms, sputum obtained late this afternoon. Continue hydration. D-dimer with a.m. labs; consult Dr. Kerr for assistance with respiratory symptoms. Hospital Course Summary Disclaimer: The visit summary below is not to be considered part of the above Progress Note. Hospital Course: Plan - 12/20/17: Admit to observation status under the care of Dr. Oreilly. CXR in ED was unremarkable. Given concern for possible PE, will obtain VQ scan now - results pending. Labs in ED revealed stable chronic anemia and thrombocytopenia. Monitor blood counts closely. Slight increase in SCr at 2.9 (baseline 2.0). Initiate hydration with NS 100cc/ hr. Monitor urinary output closely as well as signs of fluid overload. Monitor closely on telemetry. Consult RT and initiate RT algorithm for treatment. Oxygen as needed to maintain SAO2 >90%. Patient has previously seen Dr. Kerr during hospitalization in 07/2017 - recommended DuoNeb treatments QID at home. Continue DuoNeb treatments QID and PRN. Solu-Medrol 125mg IV given in ED. Will continue Q6H given wheezing. Consider pulmonary consult for additional treatment recommendations. Will continue home medications - hold home oxycodone 30mg given symptoms may be secondary to drug reaction. Morphine 2mg IV Q2-3 hours PRN additional pain control. Concern for possible aspiration given patient's report of vomiting last evening. Unasyn initiated-adjusted for renal function. Recheck labs in AM to monitor blood counts, electrolytes and renal function. Upon discharge, patient's care will be returned to his PCP, Dr. Chau. Patient is a full code.
[2017-12-20] MEDS ORDERED: SALINE FLUSH 10ml SYRINGE ONE (13:46)
--- NOTE | 2017-12-20 14:41 | Nuclear Medicine Report ---
Indication: dyspnea PROCEDURE: NM pul vent and perfuse: Comparison: Chest x-ray from today Technique: The patient received 44mCi aerosolized Tc-99m DTPA prior to obtaining ventilation images. Next, 6.6 mCi of Tc-99m MAA was administered intravenously prior to obtaining perfusion images in the standard 8 views. A chest x-ray from today was reviewed. Findings: Ventilation images demonstrate heterogeneous radiotracer uptake throughout both lungs with large areas of ventilation defect in both lung apices and scattered defects throughout the remaining lung parenchyma. Perfusion images also demonstrate significantly heterogeneous uptake bilaterally. The ventilation and perfusion defects appear to be matched. There are no segmental or larger mismatched perfusion defects. Impression: Intermediate probability lung ventilation/perfusion scan for pulmonary embolus (approximately 20-30% probability). .
[2017-12-20] MEDS: ALBUTEROL/IPRATROPIUM 2.5mg-0.5mg/3ml NEB AEROSOL SCH ×3 (15:37→18:39)
[2017-12-20] MEDS: GABAPENTIN 300 MG CAPSULE PO SCH ×2 (15:50→20:52)
[2017-12-20] MEDS: HYDROCODONE/APAP 10 MG/325 MG TABLET PO PRN ×2 (15:50→19:48)
[2017-12-20] MEDS: METHYLPREDNISOLONE SOD SUCC 125mg/2ml INJECTION IVP SCH ×2 (15:52→20:52)
[2017-12-20] MEDS: MORPHINE SULFATE 2mg INJECTION IVP PRN ×2 (16:12→20:51)
[2017-12-20] MEDS: ALPRAZolam 0.5 MG TABLET PO PRN (20:52)
[2017-12-20] MEDS: DOXAZOSIN 4 MG TABLET PO SCH (20:53)
[2017-12-20] MEDS: AMPICILLIN/SULBACTAM 3 G in NS 100 ML IV SCH (20:53)
[2017-12-20] MEDS: BUDESONIDE INH.SOLN 0.5mg/2ml NEB AEROSOL SCH (21:33)
[2017-12-20] MEDS: ALBUTEROL 2.5mg/3ml (0.083%) NEB AEROSOL PRN (21:33)
[2017-12-21] MEDS: HYDROCODONE/APAP 10 MG/325 MG TABLET PO PRN ×3 (00:20→19:21)
[2017-12-21] MEDS: NS 1,000 ML IV SCH ×3 (00:20→23:27)
[2017-12-21] MEDS: METHYLPREDNISOLONE SOD SUCC 125mg/2ml INJECTION IVP SCH ×4 (03:05→22:01)
[2017-12-21] MEDS: ALBUTEROL 2.5mg/3ml (0.083%) NEB AEROSOL PRN ×2 (03:15→23:30)
[2017-12-21] MEDS: ALBUTEROL/IPRATROPIUM 2.5mg-0.5mg/3ml NEB AEROSOL SCH ×5 (06:46→18:04)
[2017-12-21] MEDS: BUDESONIDE INH.SOLN 0.5mg/2ml NEB AEROSOL SCH ×2 (06:46→19:19)
[2017-12-21] MEDS: AMPICILLIN/SULBACTAM 3 G in NS 100 ML IV SCH ×2 (07:46→19:14)
[2017-12-21] MEDS: MORPHINE SULFATE 2mg INJECTION IVP PRN ×3 (08:28→22:00)
[2017-12-21 10:01] VITALS: BMI 21.0
[2017-12-21] MEDS: ASPIRIN *EC* 81 MG TABLET PO SCH (10:16)
[2017-12-21] MEDS: AMLODIPINE 5 MG TABLET PO SCH (10:16)
[2017-12-21] MEDS: POLYETHYL GLYCOL 3350 17gm PACKET PO SCH (10:17)
[2017-12-21] MEDS: GABAPENTIN 300 MG CAPSULE PO SCH ×3 (10:17→22:02)
[2017-12-21] MEDS: CALCIUM 600 + VIT D 400 TABLET PO SCH (10:22)
[2017-12-21] MEDS: DOXAZOSIN 4 MG TABLET PO SCH ×2 (10:22→22:02)
[2017-12-21] MEDS: SALINE FLUSH 10ml SYRINGE IVF PRN ×2 (12:35→22:02)
--- NOTE | 2017-12-21 16:36 | Pulmonology Consult Note ---
History of Present Illness Consult date: 12/21/17 Requesting physician: Bernie Oreilly Reason for consult: dyspnea, COPD Chief complaint: short of breath History of present illness: HPI: Yury Quarles (Ronnie) is a pleasant 72-year-old male patient of Dr. Aston Chau who presented to [facility] today, 12/20/17, for evaluation of acute dyspnea and generalized weakness. He has a history of asthma and multiple myeloma. We have seen him in the past for asthma both as an inpatient and outpatient. He uses nebulized ipratropium/albuterol up to QID and Ventolin prn. He follows with Dr. Mcghee for his multiple myeloma. He reports that he has been feeling great and was seen at Dr. Mcghee's office on 12/19/17 for his weekly "treatment" for his multiple myeloma. He reports that Dr. Mcghee changed his pain medication, starting him on Oxycontin 30mg BID due to his persistent pain. He begin his new medication last night, 12/19/17, before bed. He reports that he woke up around 2100 because he was vomiting. He contemplated coming to the ED last night but ultimately decided to stay home to see if his symptoms would improve. He also reports feeling increasingly short of breath last night. His vomiting resolved after the one episode but he progressively became short of breath despite utilizing his home nebulizer and albuterol treatments. Due to his symptoms, Dr. Mcghee recommended he be evaluated in the ED due to concerns about possible PE. He denies any recent illness, fevers, chills, abdominal pain , diarrhea or dysuria. He does admit to a chronic "morning cough" which is usually productive but denies any new cough or congestion. Upon arrival to the ED, he was found to have a temperature of 99.0, tachycardia (HR 109), tachypnea (RR 28) with pulse ox of 95% on room air. Labs were obtained and revealed chronic anemia (hgb 10.2), chronic thrombocytopenia (Plt 108) and stable WBC. Electrolytes were unremarkable. SCr and BUN were elevated at 2.9 and 40 respectively - baseline SCr 2.0. He states that he has seen a compliance tester in [place] previously but is unable to recall whom. EKG showed NSR at a rate of 93. CXR revealed stable appearance of the chest without acute cardiopulmonary disease. While in the ED, he received a double dose breathing treatment with DuoNeb and Solu-Medrol 125mg IV without significant improvement. Due to his acute dyspnea and generalized weakness, Dr. Oreilly was consulted and he was admitted into observation status for further evaluation, close respiratory monitoring and IV hydration. Due to his elevated renal function, CT angio for PE was unable to be obtained so he will require a VQ scan for further evaluation given concern of PE. Past Medical History Medical History Updates: Multiple Myeloma, diagnosed Oct, 2013, on chemotherapy , s/p bone marrow transplant. Hypertension. Chronic kidney disease, stage IV. Asthma. Anemia of chronic disease. Osteoarthritis. Chronic pain - narcotic dependent. Surgical History: Bone marrow transplant - 2014. Cholecystectomy - Dr. Argueta. PowerPort insertion. Right shoulder arthroscopy. Left lower leg ORIF. Right cataract removed. Family History: Father of lung cancer (smoker); one sister with colon cancer; another sister with cervical cancer, mother age 82, of cancer (unknown). Family History: As Above - Social History Smoking status: Never smoker Substance use type: does not use Alcohol intake frequency: former alcohol drinker (quit 2013) Housing: house Household members: none (sister lives next door) Current occupational status: retired Does patient use chewing tobacco?: No Current residence: Apartment/Private Home Social history: PCP - Dr. Aston Chau. Onc - Dr. Mcghee. Review of Systems All systems: reviewed and no additional remarkable complaints except as stated PFSH Patient Stated Medical History Cataracts Yes: R cataract removed/ R lens placed Hypertension Yes Asthma Yes Other GI Yes: DIARRHEA Hx Renal Disease Yes Hx Urinary Tract Infection Yes Osteoarthritis Yes Medical History Updates: Multiple Myeloma, diagnosed Oct, 2013, on chemotherapy , s/p bone marrow transplant. Hypertension. Chronic kidney disease, stage IV. Asthma. Anemia of chronic disease. Osteoarthritis. Chronic pain - narcotic dependent. Surgical History: Bone marrow transplant - 2014. Cholecystectomy - Dr. Argueta. PowerPort insertion. Right shoulder arthroscopy. Left lower leg ORIF. Right cataract removed. Family History Updates: father of lung cancer (smoker); one sister with colon cancer; another sister with cervical cancer, mother age 82, of cancer (unknown) - Social History Smoking status: Never smoker Substance use type: does not use Alcohol intake frequency: former alcohol drinker (quit 2013) Housing: house Household members: none (sister lives next door) Current occupational status: retired Does patient use chewing tobacco?: No Current residence: Apartment/Private Home Medications Home Medications Medication Instructions Recorded Confirmed Type ALPRAZolam [Xanax] 0.5 mg PO BID PRN 08/01/17 12/20/17 History Amlodipine [Norvasc] 5 mg PO DAILY 08/01/17 12/20/17 History Aspirin [Aspirin EC] 81 mg PO DAILY 08/01/17 12/20/17 History Calcium Carbonate/Vitamin D3 1 tab PO DAILY 08/01/17 12/20/17 History [Calcium 600 + Vit D Tablet] Doxazosin [Cardura] 4 mg PO BID 08/01/17 12/20/17 History Gabapentin [Neurontin] 300 mg PO TID 08/01/17 12/20/17 History Hydrocodone/APAP 10/325 [[place] 1 tab PO Q4H PRN 08/01/17 12/20/17 History 10/325] Albuterol HFA Inhaler [Ventolin 1 puff INH PRN 12/20/17 12/20/17 History Hfa 90 mcg/actuation] Albuterol Neb (0.083%) [Proventil 7.5 vial AEROSOL Q4H PRN 12/20/17 12/20/17 History Neb (0.083%)] Oxycodone HCl [Oxycontin] 30 mg PO BID PRN 12/20/17 12/20/17 History Allergies Allergy/AdvReac Type Severity Reaction Status Date / Time No Known Drug Allergies Allergy Unknown Verified 12/20/17 09:39 Exam Vital signs: Temperature 96.7 F L 12/21/17 16:04 Pulse Rate 98 12/21/17 16:04 Respiratory Rate 18 12/21/17 16:04 Blood Pressure 155/76 H 12/21/17 16:04 Pulse Oximetry 95 12/21/17 16:04 - Constitutional no acute distress - Routine HEENT Exam Head: Present: normocephalic, atraumatic Eye: Absent: conjunctival icterus - Routine Neck Exam Present: supple, full ROM - Routine Respiratory Exam Present: accessory muscle use, prolonged expiratory phase, wheezes - Routine Cardiovascular Exam Present: RRR - Routine Abdominal Exam Present: soft. Absent: guarding - Routine Extremities Exam Absent: cyanosis, clubbing, edema - Routine Skin Exam Present: erythema - Routine Neurological Exam Present: alert, oriented X3. Absent: motor deficit - Routine Psychiatric Exam Present: normal affect, normal thought process Results - Laboratory Findings CBC and BMP: 12/21/17 04:45 12/21/17 04:45 PT/INR, D-dimer D-Dimer 451 NG/ML (0-230) H 12/21/17 04:45 Abnormal lab findings: Abnormal Labs 12/20/17 12/20/17 12/20/17 08:21 08:21 13:37 RBC 3.49 L Hgb 10.2 L Hct 31.4 L Plt Count 108 L MPV Neut % (Auto) 82.1 H Lymph % (Auto) 9.5 L Lymph # (Auto) 0.5 L Neutrophils % (Manual) Band Neutrophils % Lymphocytes % (Manual) Lymphocytes # (Manual) D-Dimer Chloride Carbon Dioxide 19 L BUN 40.0 H Creatinine 2.9 H Glucose Calculated Osmolality Calcium NT-Pro-B Natriuret Pep 537 H Total Protein 6.2 L Globulin 2.2 L Urine Protein 1+ A Urine Bacteria 1+ H Ur Random Sodium 12/20/17 12/21/17 12/21/17 13:37 04:45 04:45 RBC 3.69 L Hgb 10.6 L Hct 32.8 L Plt Count 90 L MPV 12.5 H Neut % (Auto) Lymph % (Auto) Lymph # (Auto) Neutrophils % (Manual) 81.0 H Band Neutrophils % 12.0 H D Lymphocytes % (Manual) 5.0 L Lymphocytes # (Manual) 0.3 L D-Dimer Chloride 109 H Carbon Dioxide 19 L BUN 45.0 H Creatinine 2.5 H D Glucose 165 H Calculated Osmolality 284 H Calcium 8.1 L NT-Pro-B Natriuret Pep Total Protein Globulin Urine Protein Urine Bacteria Ur Random Sodium 23 L 12/21/17 04:45 RBC Hgb Hct Plt Count MPV Neut % (Auto) Lymph % (Auto) Lymph # (Auto) Neutrophils % (Manual) Band Neutrophils % Lymphocytes % (Manual) Lymphocytes # (Manual) D-Dimer 451 H Chloride Carbon Dioxide BUN Creatinine Glucose Calculated Osmolality Calcium NT-Pro-B Natriuret Pep Total Protein Globulin Urine Protein Urine Bacteria Ur Random Sodium - Diagnostic Findings Chest x-ray: report reviewed Additional studies: Findings: Ventilation images demonstrate heterogeneous radiotracer uptake throughout both lungs with large areas of ventilation defect in both lung apices and scattered defects throughout the remaining lung parenchyma. Perfusion images also demonstrate significantly heterogeneous uptake bilaterally. The ventilation and perfusion defects appear to be matched. There are no segmental or larger mismatched perfusion defects. VQ lung scan shows intermediate probability for PE with matched defects Assessment and Plan (1) Asthma with exacerbation Status: Acute Assessment and plan: I recommend nebulized budesonide 0.5mg BID, albuterol and iprat Q4H WA continue methylpred 125 q6 today, then start weaning with 60 q6 tomorrow. I agree with empiric antibiotics as aspiration is a consideration Current Visit: No - Time Spent With Patient Total time spent is greater than 50% in coordination of care (as documented) at patient's floor/unit and/or counseling patient: 25 - 35 minutes
--- NOTE | 2017-12-21 17:30 | Progress Note ---
- Date 12/21/17 Subjective: [place]il[place]: Patient reports ongoing increased dyspnea from baseline especially with minor activity is limited as walking to the bathroom. He continues to have cough productive of some sputum although notes that cough was well controlled early in the day but has worsened progressively. He has required frequent breathing treatments and yesterday was requiring them every 2 hours. He denies chest pain, vomiting although has experienced some minor nausea and is largely limiting oral intake to liquids as a result. He denies fevers or lightheadedness. Objective Vital signs: Temperature 96.7 F L 12/21/17 16:04 Pulse Rate 98 12/21/17 16:04 Respiratory Rate 18 12/21/17 16:04 Blood Pressure 155/76 H 12/21/17 16:04 Pulse Oximetry 95 12/21/17 16:04 Height/Weight/BMI: Height 1.68 m Weight 59.2 kg Body Mass Index 21.0 - Constitutional Present: no acute distress, well nourished, well developed - Routine HEENT Exam Head: Present: normocephalic, atraumatic - Routine Respiratory Exam Present: dyspnea, decreased breath sounds, wheezes (diffuse/insp and exp) - Routine Cardiovascular Exam Present: RRR, no murmur - Routine Abdominal Exam Present: soft, non distended, non tender - Routine Extremities Exam Present: no edema, normal capillary refill - Routine Skin Exam Present: dry, warm - Routine Neurological Exam Present: alert, oriented X3 - Routine Lymphatic Exam Lymphatic: Absent: adenopathy - Routine Psychiatric Exam Present: normal affect, cooperative Results - Labs CBC & Chem 7: 12/21/17 04:45 12/21/17 04:45 Microbiology Results: Microbiology 12/20/17 15:50 Sputum, Expectorated Gram Stain - Final 12/20/17 15:50 Sputum, Expectorated Sputum Culture - Preliminary Early growth 12/20/17 08:21 Port/Picc Blood Culture - Preliminary No Growth After 1 Day 12/20/17 08:21 Port/Picc Blood Culture - Preliminary No Growth After 1 Day Assessment and Plan (1) Acute respiratory distress Current visit: Yes Status: Acute Assessment and Plan: Assessment: Asthma/COPD exacerbation with increasing dyspnea Acute dyspnea with respiratory distress, present on admission. Questionable asthma exacerbation vs. PE vs. aspiration pneumonia Generalized weakness. Nausea/vomiting Acute kidney injury Possible medication reaction to oxycodone 30mg. Multiple Myeloma, diagnosed Oct, 2013, on chemotherapy, s/p bone marrow transplant. Hypertension. Chronic kidney disease, stage IV. Asthma. Anemia of chronic disease. Osteoarthritis. Chronic pain - narcotic dependent. Thrombocytopenia Plan Sputum culture is pending, Gram stain shows many gram-positive cocci in pairs, chains, clusters. Day #2 of Unasyn for probable aspiration PNA. Day #2 solumedrol IV q 6 hrs. Continue Pulmicort, DuoNeb, and Acapella. Dr. Kerr has seen pt and agrees with current tx. Vitals and labs are stable. No oxygen requirement at this time. Cultures negative to date. DVT Prophylaxis: SCD's Resuscitation Status: Full Code - Physician Narrative Physician: Bernie Oreilly MD Narrative: Date: 12/21/17 Time: 2154 I have independently evaluated and examined this patient. I reviewed the chart, the patient's history, and the FRAMING MANAGER/PA's documented findings as above. We discussed and formulated the assessment and plan as above with additions as below: See subjective history entered by me above; patient is alert but appears to have slightly labored respirations at rest, breath sounds remained very coarse anteriorly with residual wheezing although wheezing is less evident than it was on admission yesterday D-dimer 451 Urine sodium 23, urine creatinine 94.9, fractional excretion sodium 0.51% Discussed with Dr. Kerr-agrees patient has acute asthma exacerbation with possible aspiration or bronchitis; recommended continued steroid therapy with every 4 hour breathing treatments and antibiotics. Did not feel anticoagulation needed. Continue fluids-urine studies consistent with dehydration. Creatinine slowly improving. Repeat chest x-ray in a.m. Respiratory status remains significantly compromised at present. platelet count down [id number], recheck a.m. Hospital Course Summary Disclaimer: The visit summary below is not to be considered part of the above Progress Note. Hospital Course: 12/20/17 Admit to observation status under the care of Dr. Oreilly. CXR in ED was unremarkable. Given concern for possible PE, will obtain VQ scan now - results pending. Labs in ED revealed stable chronic anemia and thrombocytopenia. Monitor blood counts closely. Slight increase in SCr at 2.9 (baseline 2.0). Initiate hydration with NS 100cc/ hr. Monitor urinary output closely as well as signs of fluid overload. Monitor closely on telemetry. Consult RT and initiate RT algorithm for treatment. Oxygen as needed to maintain SAO2 >90%. Patient has previously seen Dr. Kerr during hospitalization in 07/2017 - recommended DuoNeb treatments QID at home. Continue DuoNeb treatments QID and PRN. Solu-Medrol 125mg IV given in ED. Will continue Q6H given wheezing. Consider pulmonary consult for additional treatment recommendations. Will continue home medications - hold home oxycodone 30mg given symptoms may be secondary to drug reaction. Morphine 2mg IV Q2-3 hours PRN additional pain control. Concern for possible aspiration given patient's report of vomiting last evening. Unasyn initiated-adjusted for renal function. Recheck labs in AM to monitor blood counts, electrolytes and renal function. Upon discharge, patient's care will be returned to his PCP, Dr. Chau. Patient is a full code. 12/21/17 Sputum culture is pending, Gram stain shows many gram-positive cocci in pairs, chains, clusters. Day #2 of Unasyn for probable aspiration PNA. Day #2 solumedrol IV q 6 hrs. Continue Pulmicort, DuoNeb, and Acapella. Dr. Kerr has seen pt and agrees with current tx. Vitals and labs are stable. No oxygen requirement at this time. Cultures negative to date.
[2017-12-21] MEDS: ALPRAZolam 0.5 MG TABLET PO PRN (22:01)
[2017-12-22] MEDS: SALINE FLUSH 10ml SYRINGE IVF PRN ×2 (03:53→07:29)
[2017-12-22] MEDS: METHYLPREDNISOLONE SOD SUCC 125mg/2ml INJECTION IVP SCH ×5 (03:53→20:38)
[2017-12-22] MEDS: HYDROCODONE/APAP 10 MG/325 MG TABLET PO PRN ×3 (04:01→20:26)
[2017-12-22] MEDS: ALBUTEROL 2.5mg/3ml (0.083%) NEB AEROSOL PRN (04:06)
[2017-12-22] MEDS: ALBUTEROL/IPRATROPIUM 2.5mg-0.5mg/3ml NEB AEROSOL SCH ×6 (06:50→20:08)
[2017-12-22] MEDS: BUDESONIDE INH.SOLN 0.5mg/2ml NEB AEROSOL SCH ×2 (06:50→19:49)
[2017-12-22] MEDS: AMPICILLIN/SULBACTAM 3 G in NS 100 ML IV SCH (06:54)
[2017-12-22] MEDS: MORPHINE SULFATE 2mg INJECTION IVP PRN (07:28)
[2017-12-22] MEDS: CALCIUM 600 + VIT D 400 TABLET PO SCH (08:49)
[2017-12-22] MEDS: DOXAZOSIN 4 MG TABLET PO SCH ×2 (08:49→20:27)
[2017-12-22] MEDS: AMLODIPINE 5 MG TABLET PO SCH (08:49)
[2017-12-22] MEDS: GABAPENTIN 300 MG CAPSULE PO SCH ×3 (08:50→20:27)
[2017-12-22] MEDS: POLYETHYL GLYCOL 3350 17gm PACKET PO SCH (08:50)
[2017-12-22] MEDS: ASPIRIN *EC* 81 MG TABLET PO SCH (08:53)
--- NOTE | 2017-12-22 09:22 | XRay Report ---
INDICATION: asthma exac, possible asp pna PROCEDURE: CHEST 2-VIEWS UPRIGHT (PA & LAT) Encounter: Initial COMPARISON: December 20, 2017 FINDINGS: The lungs are clear without evidence of focal abnormal airspace opacity. There is no pleural effusion or pneumothorax. Right IJ port. The heart size, mediastinal contours and pulmonary vascularity are stable. IMPRESSION: No acute cardiopulmonary disease. .
[2017-12-22] MEDS: NS 1,000 ML IV SCH (11:47)
--- NOTE | 2017-12-22 15:19 | Progress Note ---
- Date 12/22/17 Subjective: Mr. Quarles reports feeling significantly improved today. He continues to have exertional dyspnea but indicates it's better than it was and that he is not wheezing nearly as much or coughing as much as he did yesterday in the prior day. He denies chest pain, palpitations, nausea or vomiting. Pain control is good with Edgecomb 10 and he feels that it is working more effectively than fentanyl patch or OxyContin did. He describes generalized pain and reports that at times even his teeth hurt. Objective Vital signs: Temperature 96.0 F L 12/22/17 12:00 Pulse Rate 93 12/22/17 12:00 Respiratory Rate 24 12/22/17 14:10 Blood Pressure 145/67 H 12/22/17 12:00 Pulse Oximetry 96 - RA 12/22/17 14:10 NAD, speaking in full sentences without dyspnea at present Conjunctiva clear, sclera anicteric Respirations nonlabored, good airflow, faint wheezing but breath sounds are not course today as they have been prior days Regular rhythm, S1-S2 Abdomen soft, nontender Extremities without edema Skin is tanned diffusely, hyperpigmented area left forearm Height/Weight/BMI: Height 1.68 m Weight 60.1 kg Body Mass Index 21.0 Results - Labs CBC & Chem 7: 12/22/17 04:21 12/22/17 04:21 Labs: S85 B13 M2 Microbiology Results: Microbiology 12/20/17 15:50 Sputum, Expectorated Gram Stain - many WBCs, many gram- positive cocci in pairs, moderate gram-positive cocci in chains and clusters 12/20/17 15:50 Sputum, Expectorated Sputum Culture - Preliminary Early growth 12/20/17 08:21 Port/Picc Blood Culture - Preliminary No Growth After 2 Days 12/20/17 08:21 Port/Picc Blood Culture - Preliminary No Growth After 2 Days - Imaging and Cardiology Chest x-ray Status: image reviewed by me (SY) Assessment and Plan (1) Acute respiratory distress Current visit: Yes Status: Acute Assessment and Plan: Assessment: Asthma/COPD exacerbation with increasing dyspnea Acute dyspnea with respiratory distress, present on admission. Generalized weakness. Nausea/vomiting Acute kidney injury Possible medication reaction to oxycodone 30mg. Multiple Myeloma, diagnosed Oct, 2013, on chemotherapy, s/p bone marrow transplant. Hypertension. Chronic kidney disease, stage IV. Asthma. Anemia of chronic disease. Osteoarthritis. Chronic pain - narcotic dependent. Thrombocytopenia Plan Sputum culture is pending, Gram stain shows many gram-positive cocci in pairs, chains, clusters. No further nausea/vomiting-suspect aspiration pneumonitis contributed to decompensation and triggered asthma exacerbation. Convert to oral antibiotics with Augmentin 500 mg bid. Moving air more effectively today; decrease Solu-Medrol to 62.5 mg every 6 hours. May be able to convert to by mouth steroids tomorrow. Platelet count dropping [id number]; chemotherapy one day prior to hospitalization. Leukocytosis present today consistent with steroid use. Renal function has improved progressively, creatinine at baseline. Adequate pain control with Edgecomb 10-using 4-5 tablets daily. DVT Prophylaxis: SCD's Resuscitation Status: Full Code - Physician Narrative Narrative: Date: 12/22/17 Time: 1513 Hospital Course Summary Disclaimer: The visit summary below is not to be considered part of the above Progress Note. Hospital Course: 12/20/17 Admit to observation status under the care of Dr. Oreilly. CXR in ED was unremarkable. Given concern for possible PE, will obtain VQ scan now - results pending. Labs in ED revealed stable chronic anemia and thrombocytopenia. Monitor blood counts closely. Slight increase in SCr at 2.9 (baseline 2.0). Initiate hydration with NS 100cc/ hr. Monitor urinary output closely as well as signs of fluid overload. Monitor closely on telemetry. Consult RT and initiate RT algorithm for treatment. Oxygen as needed to maintain SAO2 >90%. Patient has previously seen Dr. Kerr during hospitalization in 07/2017 - recommended DuoNeb treatments QID at home. Continue DuoNeb treatments QID and PRN. Solu-Medrol 125mg IV given in ED. Will continue Q6H given wheezing. Consider pulmonary consult for additional treatment recommendations. Will continue home medications - hold home oxycodone 30mg given symptoms may be secondary to drug reaction. Morphine 2mg IV Q2-3 hours PRN additional pain control. Concern for possible aspiration given patient's report of vomiting last evening. Unasyn initiated-adjusted for renal function. Recheck labs in AM to monitor blood counts, electrolytes and renal function. Upon discharge, patient's care will be returned to his PCP, Dr. Chau. Patient is a full code. 12/21/17 Sputum culture is pending, Gram stain shows many gram-positive cocci in pairs, chains, clusters. Day #2 of Unasyn for probable aspiration PNA. Day #2 solumedrol IV q 6 hrs. Continue Pulmicort, DuoNeb, and Acapella. Dr. Kerr has seen pt and agrees with current tx. Vitals and labs are stable. No oxygen requirement at this time. Cultures negative to date. 12/22/17 Sputum culture is pending, Gram stain shows many gram-positive cocci in pairs, chains, clusters. No further nausea/vomiting-suspect aspiration pneumonitis contributed to decompensation and triggered asthma exacerbation. Convert to oral antibiotics with Augmentin 500 mg bid. Moving air more effectively today; decrease Solu-Medrol to 62.5 mg every 6 hours. May be able to convert to by mouth steroids tomorrow. Platelet count dropping [id number]; chemotherapy one day prior to hospitalization. Leukocytosis present today consistent with steroid use. Renal function has improved progressively, creatinine at baseline. Adequate pain control with Edgecomb 10-using 4-5 tablets daily.
[2017-12-22] MEDS: ALPRAZolam 0.5 MG TABLET PO PRN (20:27)
[2017-12-22] MEDS: AMOX/CLAV 500 MG/125 MG TABLET PO SCH (21:09)
[2017-12-23] MEDS: ALBUTEROL/IPRATROPIUM 2.5mg-0.5mg/3ml NEB AEROSOL SCH ×4 (00:58→11:53)
[2017-12-23] MEDS: NS 1,000 ML IV SCH ×2 (01:32→12:34)
[2017-12-23] MEDS: METHYLPREDNISOLONE SOD SUCC 125mg/2ml INJECTION IVP SCH ×2 (04:07→08:52)
[2017-12-23] MEDS: SALINE FLUSH 10ml SYRINGE IVF PRN ×3 (04:08→14:24)
[2017-12-23] MEDS: HYDROCODONE/APAP 10 MG/325 MG TABLET PO PRN ×3 (04:34→13:41)
[2017-12-23] MEDS: BUDESONIDE INH.SOLN 0.5mg/2ml NEB AEROSOL SCH (08:05)
[2017-12-23] MEDS: AMLODIPINE 5 MG TABLET PO SCH (08:51)
[2017-12-23] MEDS: ASPIRIN *EC* 81 MG TABLET PO SCH (08:52)
[2017-12-23] MEDS: CALCIUM 600 + VIT D 400 TABLET PO SCH (08:52)
[2017-12-23] MEDS: DOXAZOSIN 4 MG TABLET PO SCH (08:52)
[2017-12-23] MEDS: GABAPENTIN 300 MG CAPSULE PO SCH ×2 (08:52→15:24)
[2017-12-23] MEDS: AMOX/CLAV 500 MG/125 MG TABLET PO SCH (08:52)
[2017-12-23] MEDS: POLYETHYL GLYCOL 3350 17gm PACKET PO SCH (08:53)
[2017-12-23] MEDS: ALBUTEROL 2.5mg/3ml (0.083%) NEB AEROSOL PRN (09:59)
[2017-12-23 11:46] VITALS: BP 153/74; PULSE 94; TEMP 98.3
[2017-12-23 12:04] VITALS: O2SAT 98
[2017-12-23] MEDS: MORPHINE SULFATE 2mg INJECTION IVP PRN (13:42)
[2017-12-23 13:43] VITALS: RESP 16
[2017-12-23] MEDS ORDERED: PredniSONE 20 MG TABLET PO SCH (14:15)
[2017-12-23] MEDS ORDERED: PredniSONE 20 MG TABLET PO ONE (14:45)
--- NOTE | 2017-12-23 22:37 | Discharge Summary ---
Discharge Information Date of admission: 12/21/17 14:37 Anticipated date of discharge: 12/23/17 Attending Physician: Bernie Oreilly MD Primary care physician: Aston Chau MD Consults: Consulting Provider: Rishabh Kerr Reason For Exam: hypoxia - Discharge Diagnosis (1) Acute respiratory distress Status: Acute Acute respiratory distress Asthma/COPD exacerbation with increasing dyspnea Generalized weakness. Nausea/vomiting Acute kidney injury Possible medication reaction to oxycodone 30mg. Multiple Myeloma, diagnosed Oct, 2013, on chemotherapy, s/p bone marrow transplant. Hypertension. Chronic kidney disease, stage IV. Asthma. Anemia of chronic disease. Osteoarthritis. Chronic pain - narcotic dependent. Thrombocytopenia - Laboratory Labs: On admission 12/20/17 WBC 7.5, hemoglobin 10.2, platelet count 108K; electrolytes were notable only for bicarbonate of 19. BUN 40, creatinine 2.9. ProBNP 537, albumin 4.0, globulin 2.2 12/23/17 04:05 12/23/17 04:05 - Microbiology Microbiology 12/20/17 15:50 Sputum, Expectorated Gram Stain - Final 12/20/17 15:50 Sputum, Expectorated Sputum Culture - Final Normal Respiratory Elizabeth 12/20/17 08:21 Port/Picc Blood Culture - Preliminary No Growth After 3 Days 12/20/17 08:21 Port/Picc Blood Culture - Preliminary No Growth After 3 Days - Radiology Radiology: Chest x-ray 12/20/17 revealed right IJ port and no evidence of acute cardiopulmonary disease. ----- VQ scan on 12/20/17: Ventilation images demonstrate heterogeneous radiotracer uptake throughout both lungs with large areas of ventilation defect in both lung apices and scattered defects throughout the remaining lung parenchyma. Perfusion images also demonstrate significantly heterogeneous uptake bilaterally. The ventilation and perfusion defects appear to be matched. There are no segmental or larger mismatched perfusion defects. Impression: Intermediate probability lung ventilation/perfusion scan for pulmonary embolus (approximately 20-30% probability). ----- Chest x-ray on 12/22/17 revealed no acute cardiopulmonary disease and was unchanged from 12/20. History of Present Illness HPI: Yury Quarles (Ronnie) is a pleasant 72-year-old male patient of Dr. Aston Chau who presented to [facility] ED today, 12/20/17, for evaluation of acute dyspnea and generalized weakness. He has a history of asthma and multiple myeloma. He follows with Dr. Mcghee for his multiple myeloma. He reports that he has been feeling great and was seen at Dr. Mcghee's office on 12/19/17 for his weekly "treatment" for his multiple myeloma. He reports that Dr. Mcghee changed his pain medication, starting him on Oxycontin 30mg BID due to his persistent pain. He begin his new medication last night, 12/19/17, before bed. He reports that he woke up around 2100 because he was vomiting. He contemplated coming to the ED last night but ultimately decided to stay home to see if his symptoms would improve. He also reports feeling increasingly short of breath last night. His vomiting resolved after the one episode but he progressively became short of breath despite utilizing his home nebulizer and albuterol treatments. Due to his symptoms, Dr. Mcghee recommended he be evaluated in the ED due to concerns about possible PE. He denies any recent illness, fevers, chills, abdominal pain , diarrhea or dysuria. He does admit to a chronic "morning cough" which is usually productive but denies any new cough or congestion. Upon arrival to the ED, he was found to have a temperature of 99.0, tachycardia (HR 109), tachypnea (RR 28) with pulse ox of 95% on room air. Labs were obtained and revealed chronic anemia (hgb 10.2), chronic thrombocytopenia (Plt 108) and stable WBC. Electrolytes were unremarkable. SCr and BUN were elevated at 2.9 and 40 respectively - baseline SCr 2.0. He states that he has seen a emergency care tech in [place] previously but is unable to recall whom. EKG showed NSR at a rate of 93. CXR revealed stable appearance of the chest without acute cardiopulmonary disease. While in the ED, he received a double dose breathing treatment with DuoNeb and Solu-Medrol 125mg IV without significant improvement. Due to his acute dyspnea and generalized weakness, Dr. Oreilly was consulted and he was admitted into observation status for further evaluation, close respiratory monitoring and IV hydration. Due to his elevated renal function, CT angio for PE was unable to be obtained so he will require a VQ scan for further evaluation given concern of PE. Objective Vital signs: Temperature 98.3 F 12/23/17 11:45 Pulse Rate 94 12/23/17 11:45 Respiratory Rate 16 12/23/17 13:42 Blood Pressure 153/74 H 12/23/17 11:45 Pulse Oximetry 98-RA 12/23/17 11:55 NAD, alert, speaking in phrases and short sentences without dyspnea Respirations nonlabored, good airflow, faint wheezes present anterior/posterior ansari, no coarse sounds present Regular rhythm, S1-S2 Abdomen soft, nontender Skin tanned, no wounds Height/Weight/BMI: Height 1.68 m Weight 62.6 kg Body Mass Index 21.0 Hospital Course This is a general summary of the patient's hospital course. For more details refer to the complete medical record. Hospital course: 12/20/17 Admitted with acute respiratory distress without hypoxia. CXR in ED was unremarkable. Given concern for possible PE, will obtain VQ scan now - results pending. Breath sounds coarse and wheezing extensively-suggests asthma exacerbation. Consult RT and initiate RT algorithm for treatment. Oxygen as needed to maintain SAO2 >90%. Dr. Kerr consulted. Continue DuoNeb treatments QID and PRN. Solu-Medrol 125mg IV given in ED. Will continue Q6H given wheezing. Consider pulmonary consult for additional treatment recommendations. Will continue home medications - hold home oxycodone 30mg given symptoms may be secondary to drug reaction. Morphine 2mg IV Q2-3 hours PRN additional pain control. Concern for possible aspiration given patient's report of vomiting last evening. Unasyn initiated-adjusted for renal function. Slight increase in SCr at 2.9 (baseline 2.0). Initiate hydration with NS 100cc/ hr. Monitor urinary output closely as well as signs of fluid overload. Patient is a full code. 12/21/17 Sputum culture is pending, Gram stain shows many gram-positive cocci in pairs, chains, clusters. Day #2 of Unasyn for probable aspiration PNA. Day #2 solumedrol IV q 6 hrs. Continue Pulmicort, DuoNeb, and Acapella. VQ scan intermediate probability with matched defects-anticoagulation not felt needed given clinical scenario compatible with asthma exacerbation. Dr. Kerr has seen pt and agrees with current tx. Vitals and labs are stable. No oxygen requirement at this time. Cultures negative to date. 12/22/17 Sputum culture is pending, Gram stain shows many gram-positive cocci in pairs, chains, clusters. No further nausea/vomiting-suspect aspiration pneumonitis contributed to decompensation and triggered asthma exacerbation. Convert to oral antibiotics with Augmentin 500 mg bid. Moving air more effectively today; decrease Solu-Medrol to 62.5 mg every 6 hours. May be able to convert to by mouth steroids tomorrow. Platelet count dropping [id number]; chemotherapy one day prior to hospitalization. Leukocytosis present today consistent with steroid use. Renal function has improved progressively, creatinine at baseline. Adequate pain control with Chetek 10-using 4-5 tablets daily. 12/23/17 Arie reports continued exertional dyspnea which he reports is minor now--he was able to walk in the halls with much less effort today. He describes a chronic morning cough and sputum production but otherwise cough has resolved. Continues to wheeze but feels he can manage adequately at home with nebulized treatments there. Examination significantly improved and air flow is much better than it was yesterday or the prior days. Converted to orals steroids with 60 mg prednisone given prior to discharge today. Will discharge with prescriptions for prednisone 40 mg 4 days starting tomorrow followed by 20 mg 4 days. Continue antibiotics with Augmentin for additional 4 days to complete 1 week treatment. He'll continue nebulized albuterol treatments every 4-6 hours as needed returning home. Patient reports intent to resume Chetek for pain control and discontinue OxyContin. Patient is asked to follow-up with Dr. Chau for reassessment of pulmonary function in approximately one week and follow-up with Dr. Mcghee as previously scheduled. Time spent with patient: discharge greater than 30 minutes Resuscitation Status: Full Code Discharge Plan - Discharge Disposition Discharge Date: 12/23/17 Disposition: 01 Discharged Home, Self-Care *Condition: Improved Reason For Visit (Visit label in EMR): COPD Exacerbation with dyspnea - Discharge Medications *Discharge Medications: New predniSONE [Prednisone] 40 mg PO DAILY #12 tab Amox/Clav [Augmentin] 500 mg PO BID #8 tab Continue Hydrocodone/APAP 10/325 [Chetek 10/325] 1 tab PO Q4H PRN PRN Reason: Pain Gabapentin [Neurontin] 300 mg PO TID Doxazosin [Cardura] 4 mg PO BID Calcium Carbonate/Vitamin D3 [Calcium 600 + Vit D Tablet] 1 tab PO DAILY Aspirin [Aspirin EC] 81 mg PO DAILY Amlodipine [Norvasc] 5 mg PO DAILY Albuterol Neb (0.083%) [Proventil Neb (0.083%)] 7.5 vial AEROSOL Q4H PRN PRN Reason: Shortness Of Air Albuterol HFA Inhaler [Ventolin Hfa 90 mcg/actuation] 1 puff INH PRN ALPRAZolam [Xanax] 0.5 mg PO BID PRN PRN Reason: Anxiety Discontinued Oxycodone HCl [Oxycontin] 30 mg PO BID PRN PRN Reason: Pain - Discharge Packet/Instructions *Diet: regular *Activity: as tolerates *Pain Management/Treatment: Chetek as needed or Tylenol; should not take more than about 10 tablets daily of Chetek + Tylenol. *Wound Care: Not applicable Additional Instructions: Take prednisone 40 mg (2-20 mg pills) daily for 4 days starting tomorrow, then 20 mg daily for 4 days. Provided you are feeling back to normal he can discontinue prednisone at that time. See Dr. Chau within 1 week for reevaluation and he can determine if he needs to continue prednisone longer than above. Continue Augmentin twice daily for bronchitis for an additional 4 days. Narcotics for pain are constipating and you may want to consider starting a fiber supplement like MiraLAX or Benefiber daily and taking a mild bowel stimulant like Senokot 2-4 tablets daily to minimize constipation. *Expected Signs/Symptoms: Cough, wheezing *Notify Physician if: You become more short of breath, nausea or vomiting, fever *During Business Hours Contact: Dr. Chau or Dr. Mcghee *After Business Hours Contact: Call [facility] at [phone] and ask that the on-call physician be paged *Pending Lab/Results: No Pending Lab - Referrals/Follow Up *Referrals/Follow Up: Steve Mcghee MD [Physician] - (as scheduled) Aston Chau MD [Primary Care Provider] - 1 Week (recheck breathing) - Patient Handouts Patient Handouts: Dyspnea (GEN) - Dismissal Complete Discharge Instructions are:: Complete Physician Narrative - Narrative Attestation Narrative: Date: 12/23/17 Time: 767
== END 2017-12-23 15:28 | disposition home or self-care (01) | DRG 191 ==
LOC: ED 07:53 → EDHOLD 07:53 → MED 11:50
PROVIDERS: ADMIT Internal Medicine; ATTEND Internal Medicine